=== PATIENT | female | born 1935 | race Caucasian/White ===

== ENCOUNTER → 2016-06-13 | Outpatient (CLI) | payer BC ==
[~2016-06-13] MED LIST: ASPI81TA28 PO; ATOR-54 PO; CHOL100010 PO; CHOL100027 PO; ESCI10TA17 PO; ESCI1TAB9 PO; MOME50SP5; NITR1CAP16 PO; OMEP20CA9 PO; POLYSOL OPB; TELM40TA11 PO
--- NOTE | 2016-06-13 13:47 | MAMMOGRAPHY REPORT ---
BILATERAL DIGITAL SCREENING MAMMOGRAM WITH CAD: 06/13/2016 CLINICAL HISTORY: Asymptomatic. Personal history of breast cancer. TECHNIQUE: Current study was also evaluated with a Computer Aided Detection (CAD) system. Bilatera l CC and MLO views were obtained. COMPARISON: Comparison is made to exams dated: 05/26/2015 mammogram, 10/29/2012 mammogram, 4 mammogram, 11/10/2012 mammogram, 10/25/2010 mammogram, and 10/24/2009 mammogram - [facility]. BREAST COMPOSITION: There are scattered areas of fibroglandular density in both breasts. FINDINGS: No suspicious masses, calcifications, or areas of architectural distortion are noted in e ither breast. There has been no significant interval change compared to prior exams. There are stab le post surgical changes in the right breast. Scattered bilateral benign-appearing calcifications a re not significantly changed. A biopsy marker clip is again noted in the left upper inner quadrant. IMPRESSION: ACR BI-RADS CATEGORY 2: BENIGN There is no mammographic evidence of malignancy. A 1 year screening mammogram is recommended. The p atient will receive written notification of the results. Approximately 10% of breast cancers are not detected with mammography. A negative mammographic repor t should not delay biopsy if a clinically suggestive mass is present. Krupa Begum M.D. ah/:06/13/2016 12:01:51 [employer] Estate List[employer] Consultant: Shruti MOORE)(M), [facility] letter sent: Normal 1/2 BI-RADS Code: ACR BI-RADS Category 2: Benign
== END | disposition home or self-care (01) ==
LOC: C.MAMM 10:21
PROVIDERS: ATTEND Internal Medicine Geriatric Medicine
DX: Z12.31 Encounter for screening mammogram for malignant neoplasm of breast (principal); Z85.3 Personal history of malignant neoplasm of breast; Z08 Encounter for follow-up examination after completed treatment for malignant neoplasm

== ENCOUNTER → 2016-08-06 | Outpatient (CLI) | payer BC ==
[2016-08-06 10:20] LABS: BASO % 0.2 %; BASO ABS # 0.01 K/uL (0-0.2); COMPLETE YES; EOS % 4.5 %; LYMPH % 28.3 %; MEAN CELL VOLUME 92.3 fL (80-100); MEAN CORPUSCULAR HEMOGLOBIN 30.8 pg (25-34); MEAN CORPUSCULAR HGB CONC 33.3 g/dl (32-36); MEAN PLATELET VOLUME 9.3 fL (7.4-10.4); MONO % 5.8 %; NEUT % 61.2 %; PLATELET COUNT 200 K/uL (130-400)
[2016-08-06 10:33] LABS: ALT/SGPT 24 U/L (12-78); AST/SGOT 21 U/L (15-37); BLOOD UREA NITROGEN 24 mg/dl (7-18); BUN/CREATININE RATIO 28.9 (10-20); CALCIUM 8.9 mg/dl (8.5-10.1); CARBON DIOXIDE 27 mmol/L (21-32); CHLORIDE 104 mmol/L (98-107); CREATININE 0.82 mg/dl (0.60-1.20); GLUCOSE 88 mg/dl (70-99); POTASSIUM 4.2 mmol/L (3.5-5.1); SODIUM 139 mmol/L (136-145)
[2016-08-06 10:35] LABS: ALB/GLOB RATIO 0.9 (0.9-2); ALKALINE PHOSPHATASE 80 U/L (45-117)
[2016-08-06 10:36] LABS: URINE APPEARANCE CLOUDY (CLEAR); URINE BILIRUBIN NEG (NEG); URINE COLOR YELLOW; URINE NITRITE NEG (NEG); URINE SPECIFIC GRAVITY 1.011 (1.000-1.030); UROBILINOGEN NEG (NEG); ZZUR CULT IF INDIC CLEAN CATCH YES
[2016-08-06 10:39] LABS: ESTIMATED AVERAGE GLUCOSE 120 mg/dl; HA1C FLAG Normal (Normal); MANUAL MICROSCOPIC REQUIRED? NO; REVIEW REQ? NO
--- NOTE | 2016-08-14 07:43 | CODING QUERY MEDICAL NECESSITY ---
SUPPORTING DIAGNOSIS NEEDED A supporting diagnosis is required for the test/procedure performed on this patient in order for us to be reimbursed by the patient's insurance. Please provide a supporting diagnosis for the following test/procedure listed below next to the test name along with your signature. *If there is no additional diagnosis for this patient that would support the following test/procedure please document that below next to the test/procedure. Test(s)/Procedure(s) that require a supporting diagnosis: * VITAMIN D 25-HYDROXY DIAGNOSIS: * DOS: 08/06/16 Provider Signature: Date: Thank you Elena Caldera Health Information Management Once completed, please kindly fax back to [phone] For questions please call [phone]
== END | disposition home or self-care (01) ==
LOC: C.LAB 09:23
PROVIDERS: ATTEND Internal Medicine Geriatric Medicine
DX: E78.5 Hyperlipidemia, unspecified (principal); F32.9 Major depressive disorder, single episode, unspecified; I10 Essential (primary) hypertension; M19.90 Unspecified osteoarthritis, unspecified site; R53.1 Weakness; R73.9 Hyperglycemia, unspecified; N81.4 Uterovaginal prolapse, unspecified

== ENCOUNTER 2016-08-08 11:22 | Emergency (ER) | payer BC ==
[~2016-08-08] VITALS: Ht 149.9 cm; Wt 58.0 kg
[~2016-08-08 11:22] MED LIST changes: -CHOL100027 PO; -ESCI1TAB9 PO; -NITR1CAP16 PO
[2016-08-08 11:26] VITALS: TEMP 36.6; Ht 149.9 cm; Wt 58.0 kg
--- NOTE | 2016-08-08 12:18 | EMERGENCY ROOM VISIT NOTE ---
History Report prepared by Micheal: Lakeshia Ram Under the Supervision of: Dr. Ashley Callahan M.D. First contact with patient: 11:44 Chief Complaint: FALL Stated Complaint: FALL/CONTUSION History of Present Illness The patient is a 80 year old female who presents to the Emergency Room with a facial injury after falling [employer]. She was walking with her when she tripped on her 's shoe and fell onto her left side and face onto concrete. She was visiting the doctor for a bladder infection when she fell. She is also experiencing pain in her left rib area. She denies any syncope. She says her wrist might be in pain, but mentions that her wrist is usually in pain due to her arthritis. She does not have osteoporosis. She takes an aspirin everyday, but reports that she has not taken her aspirin or her hypertension medication today. Source of History: patient Onset: [employer] Position: other (global) Timing: other (episode) Note: Pt has pain in the left rib area. Pt denies syncope. Review of Systems See HPI for pertinent positives & negatives. A total of 10 systems reviewed and were otherwise negative. 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 Social History Smoking Status: Never Smoker Drug Use: none Marital Status: Housing Status: lives with significant other Current/Historical Medications Scheduled Aspirin (Aspirin Ec), 81 MG PO QAM Atorvastatin (Lipitor), 20 MG PO HS Cholecalciferol (Vitamin D 1000 Unit), 1,000 INTER.UNIT PO DAILY Escitalopram (Lexapro), 5 MG PO Q2D Escitalopram Oxalate (Lexapro), 10 MG PO Q2D Nitrofurantoin Monohyd Macro (Macrobid), 100 MG PO BID Omeprazole (Prilosec), 20 MG PO DAILY Polyvinyl Alcohol-Povidone (Op (Refresh), 1 DROP OPB BID Telmisartan (Micardis), 40 MG PO DAILY Allergies Coded Allergies: Sulfa Drugs (Verified Allergy, Intermediate, RASH, 08/08/16) Ciprofloxacin (Verified Allergy, Unknown, UNKNOWN, 08/08/16) Iodine (Verified Allergy, Unknown, IV AND TOPICAL IODINE, 08/08/16) Levofloxacin (Verified Allergy, Unknown, UNKNOWN, 08/08/16) Sertraline (Verified Allergy, Unknown, ZOLOFT, 08/08/16) ALLSCRIPTS Codeine (Verified Adverse Reaction, Intermediate, VERY ILL & DIZZY, 08/08/16 ) Physical Exam Vital Signs Date Time Temp Pulse Resp B/P Pulse Ox O2 Delivery O2 Flow Rate FiO2 08/08/16 16:09 74 16 139/79 99 Room Air 08/08/16 15:02 72 16 157/76 98 Room Air 08/08/16 14:00 73 16 160/88 98 Room Air 08/08/16 13:02 72 16 158/84 100 Room Air 08/08/16 11:26 36.6 74 16 166/72 98 Room Air Physical Exam Vital signs reviewed. General: Elderly, generally well-appearing , in no significant distress. Collared. HEENT: No scleral icterus, PERRLA, neck supple. Large left forehead hematoma. Cardiovascular: Regular rate and rhythm, no extra sounds. Pulmonary: Clear to auscultation bilaterally, normal work of breathing. Abdomen: Soft, nontender, nondistended, positive bowel sounds. Musculoskeletal: Atraumatic, no significant deformity. Nontender to palpation over cervical spine. Neurologic: Patient awake alert and oriented x 3, full strength in all 4 extremities. Skin: Warm, dry, no rash. No significant abrasions/laceration. Medical Decision & Procedures ER Provider Diagnostic Interpretation: X-ray results as stated below per my interpretation and radiologist interpretation. Other radiology results as stated below per my review and radiologist interpretation: LEFT RIBS UNILATERAL WITH PA CHEST CLINICAL HISTORY: Left rib pain status post trauma COMPARISON STUDY: Chest x-ray performed December 2009 FINDINGS: The erect chest reveals no pneumothorax. There are postsurgical changes of a right humeral arthroplasty. Degenerative changes are present within the left shoulder. There are increased markings at both lung bases. This could be atelectatic, inflammatory, or related to mild pulmonary vascular congestion. No left-sided rib fractures are visualized. IMPRESSION: No evidence of pneumothorax. No left-sided rib fractures are visualized. Electronically signed by: Eagle Billingsley M.D. 08/08/2016 2:[address]AST CT DOSE: HISTORY: Trauma mental status change TECHNIQUE: Multiaxial CT images of the head were performed without the use of intravenous contrast. Comparison: 01/17/2016 Findings: The paranasal sinuses and mastoid air cells are clear. Left extracranial prefrontal soft tissue hematoma. No acute bony abnormality. Density characteristics of the cerebellar as well as cerebral hemispheres are within normal limits. There is no deviation of midline structures. Impression: 1. No acute intracranial abnormality. 2. Left prefrontal extracranial soft tissue hematoma Electronically signed by: Sonu Cannon M.D. 08/08/2016 1:[address] OF THE CERVICAL SPINE WITHOUT CONTRAST CLINICAL HISTORY: Fall. COMPARISON STUDY: Cervical spine CT January 17, 2016. TECHNIQUE: Helical axial images of the cervical spine were obtained without IV contrast. Sagittal and coronal reconstructions were viewed. FINDINGS: No acute fracture is identified within the cervical spine. The craniocervical junction is intact. Severe arthrosis is noted at the C1-C2 articulation. Slight anterolisthesis of C3 on C4, C4 on C5 and C7 on T1 is unchanged. There is no prevertebral edema. No pneumothorax is shown within visualized portions of the lung apices. A 2 cm right lobe thyroid nodule is unchanged. Biapical opacities suggest scarring. There may be mild interlobular septal thickening. IMPRESSION: No acute cervical spine fracture or subluxation. Electronically signed by: Travis Salgado M.D. 08/08/2016 1:45 PM LEFT KNEE 1 OR 2 VIEWS ROUTINE CLINICAL HISTORY: Left knee pain status post trauma COMPARISON: None. DISCUSSION: The bones are osteopenic. No acute fractures are visualized. There is mild anterior soft tissue swelling. IMPRESSION: Mild soft tissue swelling. No acute fractures. Osteopenia. Electronically signed by: Eagle Billingsley M.D. 08/08/2016 2:34 PM Laboratory Results 08/08/16 12:30 Red Blood Count 4.21, Mean Corpuscular Volume 92.2, Mean Corpuscular Hemoglobin 31.8, Mean Corpuscular Hemoglobin Concent 34.5, Mean Platelet Volume 9.2, Neutrophils (%) (Auto) 72.6, Lymphocytes (%) (Auto) 18.9, Monocytes (%) (Auto) 6.0, Eosinophils (%) (Auto) 2.2, Basophils (%) (Auto) 0.1, Neutrophils # (Auto) 5.82, Lymphocytes # (Auto) 1.52, Monocytes # (Auto) 0.48, Eosinophils # (Auto) 0.18, Basophils # (Auto) 0.01 08/08/16 12:30 Test 08/08/16 12:30 08/08/16 12:50 White Blood Count 8.03 K/uL (4.8-10.8) Red Blood Count 4.21 M/uL (4.2-5.4) Hemoglobin 13.4 g/dL (12.0-16.0) Hematocrit 38.8 % (37-47) Mean Corpuscular Volume 92.2 fL (80-100) Mean Corpuscular Hemoglobin 31.8 pg (25-34) Mean Corpuscular Hemoglobin Concent 34.5 g/dl (32-36) Platelet Count 213 K/uL (130-400) Mean Platelet Volume 9.2 fL (7.4-10.4) Neutrophils (%) (Auto) 72.6 % Lymphocytes (%) (Auto) 18.9 % Monocytes (%) (Auto) 6.0 % Eosinophils (%) (Auto) 2.2 % Basophils (%) (Auto) 0.1 % Neutrophils # (Auto) 5.82 K/uL (1.4-6.5) Lymphocytes # (Auto) 1.52 K/uL (1.2-3.4) Monocytes # (Auto) 0.48 K/uL (0.11-0.59) Eosinophils # (Auto) 0.18 K/uL (0-0.5) Basophils # (Auto) 0.01 K/uL (0-0.2) RDW Standard Deviation 48.5 fL (36.4-46.3) RDW Coefficient of Variation 14.3 % (11.5-14.5) Immature Granulocyte % (Auto) 0.2 % Immature Granulocyte # (Auto) 0.02 K/uL (0.00-0.02) Anion Gap 10.0 mmol/L (3-11) Est Creatinine Clear Calc Drug Dose 34.9 ml/min Estimated GFR () 62.7 Estimated GFR (Non- 54.1 BUN/Creatinine Ratio 27.3 (10-20) Calcium Level 9.6 mg/dl (8.5-10.1) Total Bilirubin 0.5 mg/dl (0.2-1) Direct Bilirubin 0.1 mg/dl (0-0.2) Aspartate Amino Transf (AST/SGOT) 24 U/L (15-37) Alanine Aminotransferase (ALT/SGPT) 27 U/L (12-78) Alkaline Phosphatase 100 U/L (45-117) Total Protein 8.1 gm/dl (6.4-8.2) Albumin 3.9 gm/dl (3.4-5.0) Urine Color YELLOW Urine Appearance CLEAR (CLEAR) Urine pH 8.5 (4.5-7.5) Urine Specific [place] 1.004 (1.000-1.030) Urine Protein NEG (NEG) Urine Glucose (UA) NEG (NEG) Urine Ketones NEG (NEG) Urine Occult Blood 1+ (NEG) Urine Nitrite NEG (NEG) Urine Bilirubin NEG (NEG) Urine Urobilinogen NEG (NEG) Urine Leukocyte Esterase MODERATE (NEG) Urine WBC (Auto) 10-30 /hpf (0-5) Urine RBC (Auto) 5-10 /hpf (0-4) Urine Hyaline Casts (Auto) 1-5 /lpf (0-5) Urine Epithelial Cells (Auto) 5-10 /lpf (0-5) Urine Bacteria (Auto) NEG (NEG) Date/Time Source Procedure Growth Status 08/08/16 12:50 Urine , Clean Catch Urine Culture - Final Enterococcus Faecalis Complete Laboratory results per my review. Medications Administered Medications (Trade) Dose Ordered Sig/Raffaele Route Start Time Stop Time Status Last Admin Dose Admin Sodium Chloride 250 ml @ 999 mls/hr Q16M STAT IV 08/08/16 12:42 08/08/16 12:57 DC 08/08/16 13:50 999 MLS/HR Sodium Chloride (Nss 1000ml) 1,000 ml @ 125 mls/hr Q8H STAT IV 08/08/16 12:42 08/08/16 16:40 DC 08/08/16 13:50 125 MLS/HR Fentanyl Citrate (Fentanyl Inj) 25 mcg NOW STAT IV 08/08/16 14:35 08/08/16 14:36 DC 08/08/16 14:44 25 MCG Acetaminophen (Tylenol Tab) 650 mg NOW STAT PO 08/08/16 15:16 08/08/16 15:17 DC 08/08/16 16:08 650 MG ECG Indication: other (fall) Rate (beats per minute): 72 Rhythm: normal sinus Findings: nonspecific-ST abn (Lateral), no ectopy, other (left atrial enlargement) ED Course 1156: Past medical records reviewed. The patient was evaluated in room C10. A complete history and physical examination was performed. 1242: NSS 250 ml @ 999 mls/hr IV, NSS 1000 ml @ 125 mls/hr IV. 1435: Fentanyl Citrate 25 mcg IV. 1511: I reassessed the patient at this time. She is feeling better and resting comfortably. I discussed the results and treatment plan with the patient. I answered all pertaining questions that she had. She expressed understanding and verbalized agreement. The patient will be discharged home. Medical Decision DDx: Intracranial injury, cervical spine injury, intrathoracic injury, intra- abdominal injury, musculoskeletal injury. This pt was evaluated and appeared to be in no distress. IV access was obtained and lab work was drawn. Pt was placed on the radiation monitor. CT head and neck were performed. Pt has a significant hematoma to the left forehead. There is no acute IC hemorrhage. No fx seen. Pt is on ASA likely contributing to the hematoma on forehead. EKG reveals a NSR with nonspecific ST changes. Lab work is unrevealing. UA is + for UTI, however she fell on her way out of PCP office to get Rx for UTI. This is at her pharmacy. Pt will f/ u with PCP for reevaluation in 2-3 days. Family resides with her and were given head injury instructions. She will return to the ED for worsening of symptoms or any medical concerns. Impression Primary Impression: Facial contusion Additional Impressions: Knee contusion UTI (urinary tract infection) Scribe Attestation The scribe's documentation has been prepared under my direction and personally reviewed by me in its entirety. I confirm that the note above accurately reflects all work, treatment, procedures, and medical decision making performed by me. Departure Information Dispostion Home / Self-Care Referrals Yobani Roach M.D. (PCP) Forms HOME CARE DOCUMENTATION FORM, IMPORTANT VISIT INFORMATION Patient Instructions My [facility] Additional Instructions Diagnosis: Head contusion, knee contusion Tylenol 650 mg every 6 hours as needed for pain. Ice the swollen and bruised areas intermittently for the next 24 hours. Follow-up with your physician next week for reevaluation. Watch for signs of head injury such as confusion, vomiting, increased pain. Return to the ER for any medical concerns. Problem Qualifiers Primary Impression: Facial contusion Encounter type: initial encounter Qualified Codes: S00.83XA - Contusion of other part of head, initial encounter Additional Impressions: Knee contusion Encounter type: initial encounter Laterality: left Qualified Codes: S80.02XA - Contusion of left knee, initial encounter
[2016-08-08] MEDS ORDERED: ESCI1TAB9 PO (12:41)
[2016-08-08] MEDS ORDERED: CHOL100027 PO (12:41)
[2016-08-08] MEDS ORDERED: SODIUM CHLORIDE 0.9% 1000ML 1,000 ML IV STA (12:42)
[2016-08-08] MEDS ORDERED: SODIUM CHLORIDE 0.9% 250ML 250 ML IV STA (12:42)
[2016-08-08] MEDS ORDERED: NITR1CAP16 PO (12:43)
[2016-08-08 12:51] LABS: BASO % 0.1 %; BASO ABS # 0.01 K/uL (0-0.2); COMPLETE YES; EOS % 2.2 %; HEMATOCRIT 38.8 % (37-47); IG% 0.2 %; LYMPH % 18.9 %; LYMPH ABS # 1.52 K/uL (1.2-3.4); MEAN CELL VOLUME 92.2 fL (80-100); MEAN CORPUSCULAR HEMOGLOBIN 31.8 pg (25-34); MEAN CORPUSCULAR HGB CONC 34.5 g/dl (32-36); MEAN PLATELET VOLUME 9.2 fL (7.4-10.4); NEUT % 72.6 %; PLATELET COUNT 213 K/uL (130-400); RED BLOOD COUNT 4.21 M/uL (4.2-5.4); WHITE BLOOD COUNT 8.03 K/uL (4.8-10.8)
[2016-08-08 12:58] LABS: BUN/CREATININE RATIO 27.3 (10-20); CALCIUM 9.6 mg/dl (8.5-10.1); CREATININE 0.98 mg/dl (0.60-1.20); POTASSIUM 4.1 mmol/L (3.5-5.1)
--- NOTE | 2016-08-08 13:30 | DIAGNOSTIC IMAGING REPORT ---
HEAD CT NONCONTRAST CT DOSE: HISTORY: Trauma mental status change TECHNIQUE: Multiaxial CT images of the head were performed without the use of intravenous contrast. Comparison: 01/17/2016 Findings: The paranasal sinuses and mastoid air cells are clear. Left extracranial prefrontal soft tissue hematoma. No acute bony abnormality. Density characteristics of the cerebellar as well as cerebral hemispheres are within normal limits. There is no deviation of midline structures. Impression: 1. No acute intracranial abnormality. 2. Left prefrontal extracranial soft tissue hematoma Electronically signed by: Sonu Cnanon M.D. 08/08/2016 1:29 PM Dictated Date/Time: 08/08/2016 1:28 PM
[2016-08-08 13:33] LABS: URINE APPEARANCE CLEAR (CLEAR); URINE BILIRUBIN NEG (NEG); URINE COLOR YELLOW; URINE NITRITE NEG (NEG); URINE PH 8.5 (4.5-7.5); URINE SPECIFIC GRAVITY 1.004 (1.000-1.030); UROBILINOGEN NEG (NEG); ZZUR CULT IF INDIC CLEAN CATCH YES
[2016-08-08 13:36] LABS: MANUAL MICROSCOPIC REQUIRED? NO; REVIEW REQ? NO
--- NOTE | 2016-08-08 13:47 | DIAGNOSTIC IMAGING REPORT ---
CT OF THE CERVICAL SPINE WITHOUT CONTRAST CLINICAL HISTORY: Fall. COMPARISON STUDY: Cervical spine CT January 17, 2016. TECHNIQUE: Helical axial images of the cervical spine were obtained without IV contrast. Sagittal and coronal reconstructions were viewed. FINDINGS: No acute fracture is identified within the cervical spine. The craniocervical junction is intact. Severe arthrosis is noted at the C1-C2 articulation. Slight anterolisthesis of C3 on C4, C4 on C5 and C7 on T1 is unchanged. There is no prevertebral edema. No pneumothorax is shown within visualized portions of the lung apices. A 2 cm right lobe thyroid nodule is unchanged. Biapical opacities suggest scarring. There may be mild interlobular septal thickening. IMPRESSION: No acute cervical spine fracture or subluxation. Electronically signed by: Travis Salgado M.D. 08/08/2016 1:45 PM Dictated Date/Time: 08/08/2016 1:41 PM
[2016-08-08] MEDS ORDERED: FENTANYL CITRATE INJ 50 MCG/1 ML 2 ML VIAL IV STA (14:35)
--- NOTE | 2016-08-08 14:35 | DIAGNOSTIC IMAGING REPORT ---
LEFT KNEE 1 OR 2 VIEWS ROUTINE CLINICAL HISTORY: Left knee pain status post trauma COMPARISON: None. DISCUSSION: The bones are osteopenic. No acute fractures are visualized. There is mild anterior soft tissue swelling. IMPRESSION: Mild soft tissue swelling. No acute fractures. Osteopenia. Electronically signed by: Eagle Billingsley M.D. 08/08/2016 2:34 PM Dictated Date/Time: 08/08/2016 2:33 PM
--- NOTE | 2016-08-08 14:37 | DIAGNOSTIC IMAGING REPORT ---
LEFT RIBS UNILATERAL WITH PA CHEST CLINICAL HISTORY: Left rib pain status post trauma COMPARISON STUDY: Chest x-ray performed December 2009 FINDINGS: The erect chest reveals no pneumothorax. There are postsurgical changes of a right humeral arthroplasty. Degenerative changes are present within the left shoulder. There are increased markings at both lung bases. This could be atelectatic, inflammatory, or related to mild pulmonary vascular congestion. No left-sided rib fractures are visualized. IMPRESSION: No evidence of pneumothorax. No left-sided rib fractures are visualized. Electronically signed by: Eagle Billingsley M.D. 08/08/2016 2:36 PM Dictated Date/Time: 08/08/2016 2:34 PM
[2016-08-08] MEDS ORDERED: ACETAMINOPHEN 325 MG TAB PO STA (15:16)
[2016-08-08 16:09] VITALS: BP 139/79; PULSE 74; O2SAT 99
== END 2016-08-08 16:18 | disposition home or self-care (01) ==
LOC: EDBD 11:22 → C.EDC 11:22
DX: S00.83XA Contusion of other part of head, initial encounter (principal); S80.02XA Contusion of left knee, initial encounter; W01.0XXA Fall on same level from slipping, tripping and stumbling without subsequent striking against object, initial encounter; Y92.89 Other specified places as the place of occurrence of the external cause; N39.0 Urinary tract infection, site not specified; I25.10 Atherosclerotic heart disease of native coronary artery without angina pectoris; F32.9 Major depressive disorder, single episode, unspecified; K21.9 Gastro-esophageal reflux disease without esophagitis; K58.9 Irritable bowel syndrome, unspecified; Z85.3 Personal history of malignant neoplasm of breast; I10 Essential (primary) hypertension; Z79.82 Long term (current) use of aspirin; Z79.899 Other long term (current) drug therapy

== ENCOUNTER → 2016-08-23 | Outpatient (CLI) | payer BC ==
[~2016-08-23] MED LIST changes: -CHOL100010 PO; +CHOL100027 PO; +ESCI1TAB9 PO; -MOME50SP5; +NITR1CAP16 PO
--- NOTE | 2016-08-23 12:03 | DIAGNOSTIC IMAGING REPORT ---
ULTRASOUND OF THE CAROTID ARTERIES CLINICAL HISTORY: Carotid artery stenosis.. COMPARISON STUDY: Carotid artery ultrasound dated 02/08/2016. TECHNIQUE: Real-time, grayscale, and color Doppler sonography of the carotid arteries is performed. Images are reviewed in the transverse and longitudinal planes. FINDINGS: Blood pressures were not assessed. The carotid arteries are patent bilaterally and demonstrate antegrade flow. There is moderate to advanced echogenic shadowing atherosclerotic plaque seen bilaterally. Normal doppler arterial waveforms are seen throughout. Velocity measurements are listed below. Common carotid peak systolic velocity (cm/sec): RIGHT: 78 LEFT: 97 ICA proximal peak systolic velocity (cm/sec): RIGHT: 183 LEFT: 175 ICA mid peak systolic velocity (cm/sec): RIGHT: 126 LEFT: 123 ICA distal peak systolic velocity (cm/sec): RIGHT: 135 LEFT: 117 ICA/CC peak systolic ratio: RIGHT: 2.3 LEFT: 1.8 Antegrade flow was shown in the vertebral arteries. The external carotid arteries are patent. Elevated velocities within the right an left external carotid arteries suggests some degree of stenosis. IMPRESSION: 1. Atherosclerotic plaque with evidence of 50-69% stenosis within the proximal right and left internal carotid arteries. 2. Antegrade flow is shown in the vertebral arteries. Electronically signed by: Michael Barr M.D. 08/23/2016 12:02 PM Dictated Date/Time: 08/23/2016 12:00 PM
== END | disposition home or self-care (01) ==
LOC: C.ULTRBC 10:44
PROVIDERS: ATTEND Internal Medicine Geriatric Medicine
DX: I65.23 Occlusion and stenosis of bilateral carotid arteries (principal)

== ENCOUNTER → 2016-10-24 | Outpatient (CLI) | payer BC ==
[2016-10-24 14:04] LABS: URINE APPEARANCE CLEAR (CLEAR); URINE BILIRUBIN NEG (NEG); URINE COLOR YELLOW; URINE EPITHELIAL CELL AUTO 20-30 /lpf (0-5); URINE NITRITE NEG (NEG); URINE SPECIFIC GRAVITY 1.014 (1.000-1.030); UROBILINOGEN NEG (NEG)
[2016-10-24 14:09] LABS: MANUAL MICROSCOPIC REQUIRED? NO; REVIEW REQ? NO
== END | disposition home or self-care (01) ==
LOC: C.LABBC 11:17
PROVIDERS: ATTEND Physician Assistant Medical
DX: Z87.440 Personal history of urinary (tract) infections (principal); N81.4 Uterovaginal prolapse, unspecified; R39.9 Unspecified symptoms and signs involving the genitourinary system

== ENCOUNTER → 2017-02-20 | Outpatient (CLI) | payer BC ==
[2017-02-20 13:16] LABS: BASO % 0.3 %; BASO ABS # 0.02 K/uL (0-0.2); COMPLETE YES; EOS % 4.3 %; HEMATOCRIT 37.6 % (37-47); IG% 0.2 %; LYMPH % 28.2 %; LYMPH ABS # 1.63 K/uL (1.2-3.4); MEAN CELL VOLUME 95.9 fL (80-100); MEAN CORPUSCULAR HEMOGLOBIN 29.6 pg (25-34); MEAN CORPUSCULAR HGB CONC 30.9 g/dl (32-36); MEAN PLATELET VOLUME 9.2 fL (7.4-10.4); PLATELET COUNT 205 K/uL (130-400); RED BLOOD COUNT 3.92 M/uL (4.2-5.4); WHITE BLOOD COUNT 5.79 K/uL (4.8-10.8)
[2017-02-20 15:13] LABS: ALT/SGPT 25 U/L (12-78); AST/SGOT 21 U/L (15-37); BLOOD UREA NITROGEN 27 mg/dl (7-18); BUN/CREATININE RATIO 27.1 (10-20); CALCIUM 8.8 mg/dl (8.5-10.1); CARBON DIOXIDE 30 mmol/L (21-32); CHLORIDE 108 mmol/L (98-107); CREATININE 0.98 mg/dl (0.60-1.20); GLUCOSE 74 mg/dl (70-99); POTASSIUM 4.3 mmol/L (3.5-5.1); SODIUM 142 mmol/L (136-145)
[2017-02-20 15:24] LABS: ALB/GLOB RATIO 0.9 (0.9-2); ALKALINE PHOSPHATASE 79 U/L (45-117); CHOLESTEROL 120 mg/dl (0-200); CHOLESTEROL/HDL RATIO 2.6; HDL CHOLESTEROL 46 mg/dl; LDL CHOLESTEROL CALCULATED 55 mg/dl; TRIGLYCERIDES 96 mg/dl (0-150); VERY LOW DENSITY LIPOPROT CALC 19 mg/dl
== END | disposition home or self-care (01) ==
LOC: C.LAB 12:34
PROVIDERS: ATTEND Internal Medicine Geriatric Medicine
DX: I10 Essential (primary) hypertension (principal); I65.29 Occlusion and stenosis of unspecified carotid artery; E78.5 Hyperlipidemia, unspecified; E73.9 Lactose intolerance, unspecified; M54.16 Radiculopathy, lumbar region; G47.30 Sleep apnea, unspecified

== ENCOUNTER → 2017-03-10 | Outpatient (CLI) | payer BC ==
--- NOTE | 2017-03-10 10:14 | DIAGNOSTIC IMAGING REPORT ---
CAROTID DOPPLER NECK ART CLINICAL HISTORY: 81 years-old Female presenting with I65.29 Carotid stenosis. TECHNIQUE: Real-time grayscale and color and spectral Doppler ultrasound imaging of the bilateral carotid arteries was performed. NASCET criteria was used in evaluating this study. COMPARISON: 08/23/2016. FINDINGS: Right: Common carotid: Atherosclerosis. Peak systolic velocity 85 cm/s. Internal carotid artery: Atherosclerosis along the proximal ICA. Peak systolic velocity 142 cm/s. External carotid artery: Atherosclerosis. Peak systolic velocity 191 cm/s. Systolic ratio: 1.7. Left: Common carotid: Atherosclerosis. Peak systolic velocity 85 cm/s. Internal carotid artery: Atherosclerosis along the proximal ICA. Peak systolic velocity 151 cm/s. External carotid artery: Atherosclerosis. Peak systolic velocity 160 cm/s. Systolic ratio: 1.8. Bilateral antegrade flow within the vertebral arteries. Reference ranges: Stenosis measurements are compared to reference velocity parameters. Normal ICA peak systolic velocity less than 125 cm/s. Normal ICA peak systolic velocity to common carotid artery velocity ratio is less than 2: less than 2 equates to less than 50% stenosis, 2-4 equates to 50-69% stenosis, greater than 4 equates to greater than or equal to 70% stenosis. Normal ICA end-diastolic velocity less than 40. Blood pressure Deferred. Other: 2.5 cm heterogeneously isoechoic nodule in the right thyroid lobe noted (low suspicion pattern). IMPRESSION: 1. Apparent elevated velocities in the internal carotid arteries, however, no significant elevated ICA/CCA PSV ratio elevation. This is somewhat equivocal but suggestive of hemodynamically significant stenosis seen within the bilateral carotid arteries. 2. Due to size, fine-needle aspiration of the incidentally noted 2.5 cm nodule in the right thyroid lobe is recommended per the [place] thyroid Association criteria. Electronically signed by: Venancio Wagner M.D. 03/10/2017 10:13 AM Dictated Date/Time: 03/10/2017 10:05 AM
--- NOTE | 2017-03-17 12:06 | CODING QUERY MEDICAL NECESSITY ---
SUPPORTING DIAGNOSIS NEEDED Dr. Erickson, A supporting diagnosis is required for the test/procedure performed on this patient in order for us to be reimbursed by the patient's insurance. Please provide a supporting diagnosis for the following test/procedure listed below next to the test name along with your signature. *If there is no additional diagnosis for this patient that would support the following test/procedure please document that below next to the test/procedure. Test(s)/Procedure(s) that require a supporting diagnosis: * ([id number]) (CAROTID DOP) DUPLEX NECK ARTER DIAGNOSIS: DATE OF SERVICE: 03/10/17 Provider Signature: Date: Thank you Niraj Rodriguez Health Information Management Once completed, please kindly fax back to [phone] For questions please call [phone]
== END | disposition home or self-care (01) ==
LOC: C.ULTRBC 09:25
PROVIDERS: ATTEND Surgery
DX: I65.29 Occlusion and stenosis of unspecified carotid artery (principal); E04.1 Nontoxic single thyroid nodule

== ENCOUNTER → 2017-04-04 | Outpatient (CLI) | payer BC ==
--- NOTE | 2017-04-04 15:42 | DIAGNOSTIC IMAGING REPORT ---
ULTRASOUND R VENOUS DOPP LOWER EXT UNILAT CLINICAL HISTORY: Right leg swelling COMPARISON STUDY: No previous studies for comparison. FINDINGS: Real-time and color flow Doppler imaging were performed. Flow was seen within the femoral, popliteal and calf veins with no intraluminal thrombus demonstrated. The saphenous vein is patent. IMPRESSION: No evidence of right lower extremity DVT. Electronically signed by: Eagle Billingsley M.D. 04/04/2017 3:40 PM Dictated Date/Time: 04/04/2017 3:40 PM
--- NOTE | 2017-04-14 12:37 | CODING QUERY MEDICAL NECESSITY ---
SUPPORTING DIAGNOSIS NEEDED A supporting diagnosis is required for the test/procedure performed on this patient in order for us to be reimbursed by the patient's insurance. Please provide a supporting diagnosis for the following test/procedure listed below next to the test name along with your signature. *If there is no additional diagnosis for this patient that would support the following test/procedure please document that below next to the test/procedure. Test(s)/Procedure(s) that require a supporting diagnosis: * US VENOUS UNIL LWR EXT DOPPLER DIAGNOSIS: Provider Signature: Date: Thank you Arely Estrada [employer] Information Management Once completed, please kindly fax back to [phone] For questions please call [phone]
== END | disposition home or self-care (01) ==
LOC: C.ULTR 15:12
PROVIDERS: ATTEND Family Medicine
DX: M79.89 Other specified soft tissue disorders (principal)

== ENCOUNTER → 2017-05-27 | Outpatient (CLI) | payer BC | END | disposition home or self-care (01) | LOC: C.PATHSPEC 17:10 | PROVIDERS: ATTEND Dermatology | DX: L98.9 Disorder of the skin and subcutaneous tissue, unspecified (principal) ==

== ENCOUNTER → 2017-06-17 | Outpatient (CLI) | payer BC ==
--- NOTE | 2017-06-18 15:29 | MAMMOGRAPHY REPORT ---
BILATERAL DIGITAL SCREENING MAMMOGRAM TOMOSYNTHESIS WITH CAD: 06/17/2017 CLINICAL HISTORY: Asymptomatic. Personal history of breast cancer. TECHNIQUE: Breast tomosynthesis in addition to standard 2D mammography was performed. Current study was also evaluated with a Computer Aided Detection (CAD) system. COMPARISON: Comparison is made to exams dated: 06/13/2016 mammogram, 05/26/2015 mammogram, 05/25/2014 mammogram, 05/24/2013 mammogram, 10/29/2012 mammogram, and 10/28/2011 mammogram - [facility]. BREAST COMPOSITION: There are scattered areas of fibroglandular density in both breasts. FINDINGS: There is an irregular and spiculated 8 mm focal asymmetry in the 12:00 middle to posterior left breast, for which additional targeted ultrasound and possible additional mammographic views are recommended. A grouping of microcalcifications in the 12:00 middle to anterior left breast warranti ng additional spot magnification views. Additional asymmetry is seen slightly lateral to the microca lcifications on the CC tomosynthesis images (slice 34), also warranting additional targeted ultrasoun d in the 1:00 axis. There are stable postsurgical changes in the right breast, with scattered benign rodlike and rim calc ifications. No other suspicious mass, architectural distortion or cluster of microcalcifications is seen bilaterally. IMPRESSION: ACR BI-RADS CATEGORY 0: INCOMPLETE EVALUATION: NEED ADDITIONAL IMAGING EVALUATION The irregular and spiculated 8 mm focal asymmetry in the 12:00 left breast, left breast grouped micro calcifications also in the 12:00 axis, and asymmetry in the approximate 1:00 left breast need additio nal imaging evaluation. The patient will be called to schedule an appointment. Approximately 10% of breast cancers are not detected with mammography. A negative mammographic report should not delay biopsy if a clinically suggestive mass is present. Janay Henriquez M.D. ay/:06/17/2017 16:29:29 Ammonium Hydroxide Operator: Rafia MOORE)(Analia), [facility] letter sent: Addl Imaging 0 BI-RADS Code: ACR BI-RADS Category 0: Incomplete Evaluation: Need Additional Imaging Evaluation
== END | disposition home or self-care (01) ==
LOC: C.MAMM 10:05
PROVIDERS: ATTEND Internal Medicine Geriatric Medicine
DX: Z12.31 Encounter for screening mammogram for malignant neoplasm of breast (principal)

== ENCOUNTER → 2017-06-25 | Outpatient (CLI) | payer BC ==
[~2017-06-25] MED LIST changes: -NITR1CAP16 PO; -POLYSOL OPB; +[UNRECOGNIZED DRUG - OTHER] OPB
--- NOTE | 2017-06-25 15:10 | MAMMOGRAPHY REPORT ---
UNILATERAL LEFT DIGITAL DIAGNOSTIC MAMMOGRAM AND TARGETED LEFT ULTRASOUND: 06/25/2017 CLINICAL HISTORY: Callback from screening mammogram for left breast asymmetries and calcifications. TECHNIQUE: Spot magnification left CC and ML views were obtained. COMPARISON: Comparison is made to exams dated: 06/17/2017 mammogram, 06/13/2016 mammogram, 05/26/2015 ma mmogram, 05/25/2014 mammogram, 05/24/2013 mammogram, and 10/29/2012 mammogram - [facility]. BREAST COMPOSITION: There are scattered areas of fibroglandular density in the left breast. FINDINGS: Spot magnification views demonstrate a persistent irregular focal asymmetry in the left sup erior breast at approximately 12:00, measuring approximately 9 mm. The other asymmetry within the le ft lateral breast on the cc view effaces to a baseline appearance on the additional views, and appear s similar to prior exams including the 2008 exam. There is a small 4 mm cluster of approximately 4 p unctate calcifications within the left upper outer quadrant. The calcifications are stable compared to multiple prior exams dating back to the 2009 and 2007 exams, and are considered benign given long- term stability. Targeted ultrasound was performed of the left 12:00 breast and left upper outer quadrant in the regio n of the mammographic asymmetries. In the left breast at 12:00, approximately 5 cm from the nipple, there is a subtle ill-defined hypoechoic irregular mass which is ill-defined and therefore difficult to measure but measures at least 3 x 5 mm. This corresponds with the irregular asymmetry seen mammog raphically and is highly suspicious for malignancy. Recommend ultrasound-guided core needle biopsy f or further evaluation. No sonographic correlate for the left lateral breast asymmetry is seen. The asymmetry is felt to represent normal fibroglandular tissue. Targeted ultrasound was also performed of the left axillary region, which shows a morphologically normal left axillary lymph nodes without e vidence of adenopathy. IMPRESSION: ACR BI-RADS CATEGORY 5: HIGHLY SUGGESTIVE OF MALIGNANCY, TARGETED ULTRASOUND ACR BI-RADS CATEGORY 5: HIGHLY SUGGESTIVE OF MALIGNANCY 1. Persistent irregular 9 mm focal asymmetry in the left 12:00 breast on the additional views. A crews btle corresponding hypoechoic mass is seen in the 12:00 breast on ultrasound. The finding is highly suspicious for malignancy and ultrasound-guided core needle biopsy is recommended for further evaluat ion. 2. The left lateral breast asymmetry effaces to a baseline appearance on the additional views, witho ut corresponding suspicious sonographic abnormality evident. The finding is benign and likely repres ents normal fibroglandular tissue. 3. Small cluster of calcifications in the left upper outer quadrant is stable dating back to 2007 an d is considered benign given long-term stability. A phone call was made to the physician's office to confirm faxed results were received. The patient has been verbally notified of the results. She tentatively scheduled the biopsy for tomorrow, 018. Approximately 10% of breast cancers are not detected with mammography. A negative mammographic report should not delay biopsy if a clinically suggestive mass is present. Krupa Begum M.D. ah/:06/25/2017 14:37:50 Data Security Analyst: Rafia FLORES(Clarita)(M), [facility] letter sent: Abnormal 4/5 BI-RADS Code: ACR BI-RADS Category 5: Highly Suggestive Of Malignancy Ultrasound BI-RADS: ACR BI-RAD S Category 5: Highly Suggestive Of Malignancy
== END | disposition home or self-care (01) ==
LOC: C.MAMM 13:19
PROVIDERS: ATTEND Internal Medicine Geriatric Medicine
DX: R92.0 Mammographic microcalcification found on diagnostic imaging of breast (principal); N64.89 Other specified disorders of breast

== ENCOUNTER → 2017-06-26 | Outpatient (CLI) | payer BC | END | disposition home or self-care (01) | LOC: C.LAB 10:00 | PROVIDERS: ATTEND Internal Medicine Geriatric Medicine | DX: R39.9 Unspecified symptoms and signs involving the genitourinary system (principal) ==

== ENCOUNTER → 2017-07-01 | Outpatient (CLI) | payer BC ==
--- NOTE | 2017-07-01 10:19 | Discharge Instructions ---
Discharge Instructions Procedure Procedure Date: Jul 01, 2017. Reason for visit: Left Mass. Discharge Discharge Date: Jul 01, 2017. Discharge Diagnosis: post left breast ultrasound guided core biopsy Medications Restart Stopped Medication(s): Resume Aspirin today Instructions Activity Recommendations: Additional Limitations (see below) Return to School/Work: no limitations Recommended Home Diet: No Limitations Provider Instructions: ACTIVITY RECOMMENDATIONS: * No lifting, pushing, pulling or exercising the affected side for three days. RETURN TO SCHOOL/WORK: * You may return to work/school after the procedure, but do not perform any strenuous activities for 24 to 48 hours. MEDICATIONS: * Tylenol (two 325 mg) every four to six hours if needed for mild pain (if not allergic to Tylenol). DIET: * Resume previous diet. SPECIAL CARE INSTRUCTIONS: * Keep biopsy site dry for 24 hours. May shower after 24 hours, but do not soak (bathe) incision. * May remove Tegaderm (plastic patch) tomorrow AFTER showering. * Leave the steri-strips on for one week. Allow the steri-strips to fall off by themselves. If not off after one week, you may remove them. You may place a Bandaid crosswise over the strips, if desired. * Apply ice 10 minutes on and 10 minutes off as needed. * Wear a bra at bedtime to sleep more comfortably for 2-3 days. * Your referring physician should have the results after approximately 5 to 7 business days. * Call for unusual bleeding, fever, drainage, etc or if you have any questions call [phone] during normal business hours or after hours call Dr Henriquez, . FOLLOW UP VISIT: Follow-up with Referring Physician as scheduled. Allergies Coded Allergies: Sulfa Drugs (Verified Allergy, Intermediate, RASH, 06/24/17) Adhesives (Verified Allergy, Unknown, SKIN IRRITATIONS, 06/24/17) Ciprofloxacin (Verified Allergy, Unknown, UNKNOWN, 06/24/17) Iodine (Verified Allergy, Unknown, IV AND TOPICAL IODINE, 06/24/17) Levofloxacin (Verified Allergy, Unknown, UNKNOWN, 06/24/17) Sertraline (Verified Allergy, Unknown, ZOLOFT, 06/24/17) ALLSCRIPTS Codeine (Verified Adverse Reaction, Intermediate, VERY ILL & DIZZY, ) Bhargavi Garcia Recommendations: Call your doctor if: * Temperature above 101 degrees * Pain not relieved by pain medicine ordered * There is increased drainage or redness from any incision * You have any unanswered questions or concerns. Your Doctors Instructions noted above were prepared by provider Janay Henriquez. Patient Signature Section: Patient Instructions Signature Page Belia Kevin Patient (or Guardian) Signature/Date: I have read and understand the instructions given to me by my caregivers. Caregiver/RN/Doctor Signature/Date: The above-named patient and/or guardian has received patient instructions on this date. + Original Patient Signature Page (only) stays with chart. Please make copy for patient.
--- NOTE | 2017-07-01 14:39 | MAMMOGRAPHY REPORT ---
ULTRASOUND GUIDED BIOPSY LEFT BREAST: 07/01/2017 CLINICAL HISTORY: 81-year-old woman presents for biopsy of a suspicious spiculated 8 mm mass in the 1 2:00 left breast identified on screening mammography, with probable sonographic correlate in the 12:0 0 axes on ultrasound. Patient has a history of remote right breast cancer status post breast conserv ation treatment. COMPARISON: Comparison is made to exams dated: 06/25/2017 ultrasound, 06/25/2017 mammogram, 06/17/2017 m ammogram, 06/13/2016 mammogram, 05/26/2015 mammogram, and 05/25/2014 mammogram - [facility]. PATIENT CONSENT: The procedure, risks and benefits were discussed with the patient and informed conse nt was obtained both verbally and in writing. Specific risks to this procedure include: bleeding, in fection, puncture of adjacent structure, nontarget biopsy, sampling error, pain, metal allergy and me dication reaction. PROCEDURE DESCRIPTION: A time out was performed and the left breast was agreed as the site of biopsy. First repeat targeted ultrasound was performed in the 12:00 axis of the left breast in the area of ill-defined hypoechoic mass identified on prior ultrasound. In the area of previously documented ill -defined hypoechoic mass in the 12:00 left breast, 5 cm from the nipple, the area of shadowing is les s conspicuous. However, a solid spiculated isoechoic mass is currently seen slightly more distal in the 12:00 axis, 7 cm from the nipple, measuring 5.5 x 3.5 x 6.7 mm. This will be the target for ultr asound-guided core biopsy. Please see below. The skin of the left breast was prepped and draped in the usual sterile fashion, utilizing ChloraPrep as the patient reported an iodine allergy. The spiculated, 6.7 mm mass in the 12:00 left breast was chosen as the target for biopsy. Subcutaneous and intraparenchymal 1% buffered lidocaine, with and wi thout epinephrine, was administered as local anesthesia. A skin incision was made. Through the incis ion, 5 samples were taken with a 14 gauge Achieve biopsy device. A wing shaped metallic marker was pl aced at the biopsy site. Hemostasis was achieved after manual compression. The patient tolerated the procedure well and there was no immediate complication. The samples were sent to the pathology depar tment in an appropriately labeled container. Postprocedure left CC and ML tomosynthesis images were obtained. A new ring-shaped biopsy marker cli p aligns with the spiculated mammographic mass in question. No significant post prepped hematoma esmer ntified. A wing shaped clip is seen in the 11:00 anterior left breast, denoting a prior benign ultra sound-guided biopsy. IMPRESSION: ULTRASOUND GUIDED BIOPSY Status post ultrasound-guided core biopsy of a suspicious spiculated 6.7 mm mass in the 12:00 left br east, with wing-shaped biopsy marker clip placed at the site. The patient will receive notification of the biopsy results from her referring physician. Janay Henriquez M.D. ay/:07/01/2017 10:56:32 Water Supervisor: Michelle Turpin, [facility]
--- NOTE | 2017-07-01 14:39 | MAMMOGRAPHY REPORT ---
UNILATERAL LEFT DIGITAL DIAGNOSTIC MAMMOGRAM TOMOSYNTHESIS: 07/01/2017 CLINICAL HISTORY: Status post ultrasound-guided core biopsy of a spiculated 6 mm mass in the 12:00 le ft breast, 5 cm from the nipple, thought to correlate with a mass with associated architectural disto rtion seen mammographically. Patient has a remote history of right breast cancer. Please refer to the report from left breast ultrasound guided core biopsy performed at the same time for full detail. IMPRESSION: POST PROCEDURE IMAGING FOR MARKER PLACEMENT Please refer to the report from left breast ultrasound guided core biopsy performed at the same time for full detail. Approximately 10% of breast cancers are not detected with mammography. A negative mammographic report should not delay biopsy if a clinically suggestive mass is present. Janay Henriquez M.D. ay/:07/01/2017 09:33:56 Attending Technologist: Rafia FLORES(Clarita)(M), [facility] Room Service Associate: Michelle Turpin, [facility] BI-RADS Code: Post Procedure Imaging For Marker Placement
== END | disposition home or self-care (01) ==
LOC: C.MAMM 08:43
PROVIDERS: ATTEND Internal Medicine Geriatric Medicine
DX: N63.20 Unspecified lump in the left breast, unspecified quadrant (principal); C50.912 Malignant neoplasm of unspecified site of left female breast

== ENCOUNTER → 2017-07-08 | Day surgery (SDC) | payer BC ==
[2017-06-24 15:16] VITALS: Ht 149.9 cm; Wt 54.5 kg
[2017-06-26 12:21] LABS: PTT PATIENT 26.8 SECONDS (21.0-31.0)
[2017-06-26 12:31] LABS: CALCIUM 9.3 mg/dl (8.5-10.1); CREATININE 0.84 mg/dl (0.60-1.20)
[2017-06-26 13:01] LABS: BASO % 0.2 %; BASO ABS # 0.01 K/uL (0-0.2); EOS % 3.5 %; EOS ABS # 0.23 K/uL (0-0.5); HEMATOCRIT 37.8 % (37-47); HEMOGLOBIN 12.2 g/dL (12.0-16.0); IG# 0.01 K/uL (0.00-0.02); LYMPH % 24.3 %; MEAN CELL VOLUME 94.3 fL (80-100); MEAN CORPUSCULAR HEMOGLOBIN 30.4 pg (25-34); MEAN CORPUSCULAR HGB CONC 32.3 g/dl (32-36); MEAN PLATELET VOLUME 9.5 fL (7.4-10.4); MONO % 6.8 %; MONO ABS # 0.45 K/uL (0.11-0.59); NEUT ABS # 4.29 K/uL (1.4-6.5); PLATELET COUNT 211 K/uL (130-400); RED CELL DISTRIBUTION WIDTH CV 14.1 % (11.5-14.5); RED CELL DISTRIBUTION WIDTH SD 48.6 fL (36.4-46.3); WHITE BLOOD COUNT 6.59 K/uL (4.8-10.8)
[~2017-07-08] VITALS: Ht 149.9 cm; Wt 54.5 kg
[~2017-07-08] MED LIST changes: +ACET-1693 PO; +ACETAMINOPHEN 325 MG TAB PO PRN; +ATROPINE SULFATE 0.1 MG/ML 5ML SYR IV PRN; +CEFAZOLIN 2000MG IV PUSH 10 ML IV SCH; +CEPH500C2 PO; +DEXAMETHASONE SOD INJ 4 MG/ML VIAL ONE; +EpHEDrine SULFATE INJ 50 MG/ML AMP IV PRN; +EpHEDrine SULFATE INJ 50 MG/ML AMP ONE; +FENTANYL CITRATE INJ 50 MCG/1 ML 2 ML VIAL IV PRN; +FENTANYL CITRATE INJ 50 MCG/1 ML 2 ML VIAL ONE; +LACTATED RINGER'S 1000ML 1,000 ML IV SCH; +LIDOCAINE HCL 2% 2 ML VIAL (20MG/ML) ONE; +LIDOCAINE/EPINEPHRINE 1% 20 ML VIAL ONE; +METOCLOPRAMIDE HCL INJ 5 MG/ML 2 ML VIAL IV PRN; +MIDAZOLAM HCL 1 MG/ML 2ML VIAL ONE; +ONDANSETRON INJ 2 MG/ML 2 ML VIAL IV PRN; +ONDANSETRON INJ 2 MG/ML 2 ML VIAL ONE; +OXYCODONE/ACETAMINOPHEN 5-325 TAB PO PRN; +PROPOFOL IV EMULSION 10 MG/ML 20 ML VIAL IV ONE; +SODIUM CHLORIDE 0.9% 1000ML 1,000 ML IV SCH; +SODIUM CHLORIDE 0.9% INJ 10 ML VIAL ONE
--- NOTE | 2017-07-08 06:58 | History & Physical Bridge - [place] ---
H&P Re-Evaluation Bridge Note: I have examined the patient, reviewed the History & Physical and in the interval since the performance of the History & Physical I have noted the following changes of clinical significance: recent diagnosis of breast ca
--- NOTE | 2017-07-08 08:40 | [facility] Post Operative Brief Note ---
Immediate Operative Summary Operative Date Jul 08, 2017. 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 Suture at 12 O'Clock. Specimen out of patient at 0745. Frozen report - well differentiated SCC, margins negative Anesthesia Type MAC Complication(s) none Disposition Disposition: Recovery Room / PACU
[2017-07-08 08:45] VITALS: TEMP 36.7
--- NOTE | 2017-07-08 08:47 | Discharge Instructions ---
Discharge Instructions Date of Service Jul 08, 2017. Admission Reason for Admission: Right Lower Extremity Squamous Cell Ca Discharge Discharge Diagnosis / Problem: squamous cell carcinoma Discharge Goals Goal(s): Decrease discomfort, Improve function Activity Recommendations Activity Limitations: as noted below ACTIVITY RECOMMENDATIONS: __Normal activities _x_No bending, lifting or straining. Limit walking and use walker __No driving __Driving allowed when you are off pain medications __Walking permitted __You should have help at home for ___ days DRESSINGS: __No dressings required _x_Keep dressings dry/in place until first office visit __Remove dressings ___ and leave dressings off __Apply ice ___ days __Remove dressings and reapply garment __Apply antibiotic ointment (Bacitracin, Neosporin, etc) to wounds 3-4 times/ day for 10 days BATHING: _x_Keep dressings dry _x_Sponge bathing permitted away from incision areas __Showering permitted _x_No swimming, hot tubs or soaking in a tub MEDICATIONS: Resume previous medications unless instructed otherwise by your surgeon. _x_Do not use aspirin, Motrin, Advil or Ibuprofen as these may promote bleeding. Please use Tylenol. _x_Prescription(s) provided: prescriptions for antibiotics and pain medication were provided at your last office visit. Begin antibiotics today OTHER INSTRUCTIONS: __Record drain output 2-3 times per day SPECIAL CARE INSTRUCTIONS: * It is normal to have a mild fever after surgery. If your temperature is higher than 101.5 degrees F, please call the office at [phone]. * Constipation is a typical side effect of pain medication. An over-the- counter stool softener will help relieve this. * Leaking around surgical drains may occur and should not cause concern. Sometimes these drains become clogged. If this happens, remove the bulb and milk the clot out of the tube, then replace the bulb. * Drainage from wounds after liposuction is normal and should be expected. Garments will become soiled. You should protect furniture and bedding. This drainage should mostly subside within 2-3 days. Leave garments in place unless instructed to remove them. * If you have unusual drainage from a wound or are concerned you have an infection or have any questions or concerns, please call the office at [phone]. FOLLOW UP VISIT: If not already scheduled, please call the office, , when you return home after surgery to schedule an appointment to be seen in _2__ days. . Current Hospital Diet Patient's current hospital diet: Discharge Diet Recommended Diet: Regular Diet Procedures Procedures Performed: Right Anterior Lower Leg Squamous Cell Carcinoma Excision With Frozen Section, Full Thickness Graft Pending Studies Studies pending at discharge: yes List of pending studies: pathology Medical Emergencies . Who to Call and When: Medical Emergencies: If at any time you feel your situation is an emergency, please call 911 immediately. . Non-Emergent Contact Non-Emergency issues call your: Primary Care Provider, Surgeon . "Provider Documentation" section prepared by Liliana Montelongo. . VTE Core Measure Inpt VTE Proph given/why not?: SCD's [place] Drug Monitoring Program Search Results: no issues identified
--- NOTE | 2017-07-08 09:29 | Anesthesia Progress Nt - [facility] ---
Anesthesia Post Op Note Date & Time Jul 08, 2017 at 09:29 Vital Signs Pain Intensity: 0 Vital Signs Past 12 Hours Date Time Temp Pulse Resp B/P (MAP) Pulse Ox O2 Delivery O2 Flow Rate FiO2 07/08/17 06:34 36.6 70 16 115/78 (90) 99 Room Air Notes Mental Status: alert / awake / arousable, participated in evaluation Pt Amnestic to Procedure: Yes Nausea / Vomiting: adequately controlled Pain: adequately controlled Airway Patency, RR, SpO2: stable & adequate BP & HR: stable & adequate Hydration State: stable & adequate Anesthetic Complications: no major complications apparent
[2017-07-08 09:30] VITALS: BP 130/72; PULSE 84; O2SAT 96
--- NOTE | 2017-07-08 15:52 | OPERATIVE REPORT ---
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 POSTOPERATIVE DIAGNOSIS: Same. PROCEDURE: Excision right anterior lower leg squamous cell carcinoma with frozen section and placement of full thickness skin graft. SURGEON: Dr. Yohana Guillen. CREATIVE SERVICES DESIGNER: Liliana Montelongo PA-C. ANESTHESIA: Local with sedation. COMPLICATIONS: None. INDICATION FOR THE PROCEDURE: The patient is an 81-year-old female who was referred [place] [facility] for a squamous cell carcinoma of her right anterior lower leg which was biopsy proven. Following shave biopsy, it rapidly recurred. Given the location and large size, we discussed performing this in the operating room as a skin graft would be required to achieve closure. BRIEF DESCRIPTION OF THE PROCEDURE: The risks, benefits and alternatives of the procedure were explained to the patient who agreed and signed consent. She was identified and marked in the preoperative holding area. She was brought to the operating room where she was positioned supine and placed under anesthesia without incident. Surgical site was prepped and draped sterilely. A time-out procedure was performed. I began by marking margins around the squamous cell carcinoma. There was an obvious lesion as well as some surrounding erythema and I marked this with a 5 mm margin for maximal excision diameter of 3 cm. Donor site in the right groin was then marked for graft harvest and 1% lidocaine with epinephrine was used to anesthetize the planned incisions. A 15 blade scalpel was used to make the elliptical incision. The graft was harvested full thickness and passed off to my physician certified medical technician assistant for graft preparation. Hemostasis was achieved with electrocautery. Immediately prior to graft harvest, the right anterior lower leg squamous cell carcinoma excision area was injected with 1% lidocaine with epinephrine. A 15 blade scalpel was used to make the incision with the above-mentioned margins. A suture was placed at 12 o'clock for margins and specimen was sent to pathology. While awaiting frozen section results, the right groin donor site was closed using 3-0 Vicryl interrupted dermal sutures and 3-0 Monocryl running subcuticular suture. Dermabond was applied. Graft was defatted using curved iris scissor by my physician certified medical technician assistant. It was inset into the recipient site using 4-0 silk tie over bolster sutures and 4-0 chromic interrupted sutures. Frozen section report showed well-differentiated squamous cell carcinoma with negative margins. A bolster dressing consisting of Xeroform and saline moistened cotton was created. Given the location, a splint was applied. The wound was dressed using 4 x 4s, Kerlix, cast padding followed by splint and Lukas bandages. The procedure was tolerated well. Maximal excision diameter of 3 cm x 3 cm. Liliana Montelongo was present and scrubbed for excision of the lesion and preparing of the graft. I attest to the content of the Intraoperative Record and any orders documented therein. Any exception s are noted below.
== END | disposition home or self-care (01) ==
LOC: X.SURG 06:14
PROVIDERS: ATTEND Plastic Surgery
DX: C44.722 Squamous cell carcinoma of skin of right lower limb, including hip (principal); I65.29 Occlusion and stenosis of unspecified carotid artery; M19.90 Unspecified osteoarthritis, unspecified site; F32.9 Major depressive disorder, single episode, unspecified; E78.5 Hyperlipidemia, unspecified; K21.9 Gastro-esophageal reflux disease without esophagitis; I10 Essential (primary) hypertension; K58.9 Irritable bowel syndrome, unspecified; E78.00 Pure hypercholesterolemia, unspecified; G47.33 Obstructive sleep apnea (adult) (pediatric); Z91.81 History of falling; Z87.440 Personal history of urinary (tract) infections; Z90.89 Acquired absence of other organs; Z98.49 Cataract extraction status, unspecified eye; Z82.49 Family history of ischemic heart disease and other diseases of the circulatory system; Z84.1 Family history of disorders of kidney and ureter; Z82.0 Family history of epilepsy and other diseases of the nervous system; Z87.891 Personal history of nicotine dependence; Z85.3 Personal history of malignant neoplasm of breast; Z85.828 Personal history of other malignant neoplasm of skin; Z95.0 Presence of cardiac pacemaker; Z79.82 Long term (current) use of aspirin

== ENCOUNTER → 2017-08-14 | Outpatient (CLI) | payer BC ==
[~2017-08-14] MED LIST changes: -ACETAMINOPHEN 325 MG TAB PO PRN; -ATROPINE SULFATE 0.1 MG/ML 5ML SYR IV PRN; -CEFAZOLIN 2000MG IV PUSH 10 ML IV SCH; -DEXAMETHASONE SOD INJ 4 MG/ML VIAL ONE; -EpHEDrine SULFATE INJ 50 MG/ML AMP IV PRN; -EpHEDrine SULFATE INJ 50 MG/ML AMP ONE; -FENTANYL CITRATE INJ 50 MCG/1 ML 2 ML VIAL IV PRN; -FENTANYL CITRATE INJ 50 MCG/1 ML 2 ML VIAL ONE; -LACTATED RINGER'S 1000ML 1,000 ML IV SCH; -LIDOCAINE HCL 2% 2 ML VIAL (20MG/ML) ONE; -LIDOCAINE/EPINEPHRINE 1% 20 ML VIAL ONE; -METOCLOPRAMIDE HCL INJ 5 MG/ML 2 ML VIAL IV PRN; -MIDAZOLAM HCL 1 MG/ML 2ML VIAL ONE; -ONDANSETRON INJ 2 MG/ML 2 ML VIAL IV PRN; -ONDANSETRON INJ 2 MG/ML 2 ML VIAL ONE; -OXYCODONE/ACETAMINOPHEN 5-325 TAB PO PRN; -PROPOFOL IV EMULSION 10 MG/ML 20 ML VIAL IV ONE; -SODIUM CHLORIDE 0.9% 1000ML 1,000 ML IV SCH; -SODIUM CHLORIDE 0.9% INJ 10 ML VIAL ONE
[2017-08-14 12:22] LABS: BASO % 0.4 %; BASO ABS # 0.02 K/uL (0-0.2); EOS % 5.1 %; EOS ABS # 0.28 K/uL (0-0.5); HEMATOCRIT 38.3 % (37-47); HEMOGLOBIN 12.3 g/dL (12.0-16.0); IG# 0.02 K/uL (0.00-0.02); LYMPH % 25.4 %; LYMPH ABS # 1.38 K/uL (1.2-3.4); MEAN CELL VOLUME 93.9 fL (80-100); MEAN CORPUSCULAR HEMOGLOBIN 30.1 pg (25-34); MEAN CORPUSCULAR HGB CONC 32.1 g/dl (32-36); MEAN PLATELET VOLUME 9.4 fL (7.4-10.4); MONO % 11.8 %; MONO ABS # 0.64 K/uL (0.11-0.59); NEUT % 56.9 %; PLATELET COUNT 209 K/uL (130-400); RED CELL DISTRIBUTION WIDTH SD 48.1 fL (36.4-46.3); WHITE BLOOD COUNT 5.44 K/uL (4.8-10.8)
[2017-08-14 13:29] LABS: BLOOD UREA NITROGEN 20 mg/dl (7-18); CALCIUM 9.2 mg/dl (8.5-10.1); CARBON DIOXIDE 29 mmol/L (21-32); CREATININE 0.93 mg/dl (0.60-1.20); GLUCOSE 84 mg/dl (70-99); POTASSIUM 4.4 mmol/L (3.5-5.1); SODIUM 137 mmol/L (136-145)
== END | disposition home or self-care (01) ==
LOC: C.LAB 11:20
PROVIDERS: ATTEND Physician Assistant Medical
DX: I10 Essential (primary) hypertension (principal); R73.9 Hyperglycemia, unspecified; M19.90 Unspecified osteoarthritis, unspecified site; M54.16 Radiculopathy, lumbar region; R39.9 Unspecified symptoms and signs involving the genitourinary system

== ENCOUNTER 2017-08-25 08:03 | Day surgery (SDC) | payer BC ==
[2017-07-16 11:14] VITALS: BMI 24.0
[~2017-08-25] VITALS: Ht 149.9 cm; Wt 54.5 kg
[2017-08-25] VITALS (7 sets, daily range): BP systolic 110–145; BP diastolic 54–99; PULSE 69–75; TEMP 36.3–36.8; O2SAT 95–100; Ht 149.9 cm; Wt 54.5 kg
[~2017-08-25 08:03] MED LIST changes: +CEFAZOLIN 2000MG IV PUSH 15 ML IV SCH; -CEPH500C2 PO; +LACTATED RINGER'S 1000ML 1,000 ML IV SCH
[2017-08-25] MEDS ORDERED: ATROPINE SULFATE 0.1 MG/ML 5ML SYR IV PRN (08:45)
[2017-08-25] MEDS ORDERED: ONDANSETRON INJ 2 MG/ML 2 ML VIAL IV PRN ×2 (08:45→13:45)
[2017-08-25] MEDS ORDERED: EpHEDrine SULFATE INJ 50 MG/ML AMP IV PRN (08:45)
--- NOTE | 2017-08-25 10:58 | DIAGNOSTIC IMAGING REPORT ---
LYMPHOSCINTIGRAPHY CLINICAL HISTORY: Left breast cancer. PROCEDURE: Using standard sterile technique, 4 intradermal and one deep injection of 0.493 mCi of Lymphoseek was placed in the left periareolar breast. The patient tolerated the procedure well. There were no immediate complications. The patient was subsequently transported to the surgical suite. No imaging was obtained at the referring physician's request. IMPRESSION: Injection of 0.493 mCi of Lymphoseek in the left breast. Electronically signed by: Adama Donohue M.D. 08/25/2017 10:56 AM Dictated Date/Time: 08/25/2017 10:56 AM
[2017-08-25] MEDS ORDERED: PROPOFOL IV EMULSION 10 MG/ML 20 ML VIAL IV ONE ×2 (11:59→13:54)
[2017-08-25] MEDS ORDERED: FENTANYL CITRATE INJ 50 MCG/1 ML 2 ML VIAL ONE ×2 (11:59→14:02)
[2017-08-25] MEDS ORDERED: ONDANSETRON INJ 2 MG/ML 2 ML VIAL ONE (11:59)
[2017-08-25] MEDS ORDERED: MIDAZOLAM HCL 1 MG/ML 2ML VIAL ONE (11:59)
[2017-08-25] MEDS ORDERED: LIDOCAINE HCL 2% 2 ML VIAL (20MG/ML) ONE ×2 (11:59→13:54)
[2017-08-25] MEDS ORDERED: DEXAMETHASONE SOD INJ 4 MG/ML VIAL ONE (11:59)
[2017-08-25] MEDS ORDERED: ISOSULFAN BLUE 10 MG/ML VIAL 5 ML ONE (12:20)
[2017-08-25] MEDS ORDERED: BUPIVACAINE 0.5 % 5 MG/1 ML MPF 30ML VIAL ONE (12:20)
[2017-08-25] MEDS ORDERED: PHENYLEPHRINE 100MCG/ML 5ML SYR ONE (12:58)
[2017-08-25] MEDS ORDERED: METHYLENE BLUE 0.5% 10 ML VIAL ONE (13:20)
--- NOTE | 2017-08-25 13:38 | [facility] Operative Report ---
Operative Report Operative Date Aug 25, 2017. Pre-Operative Diagnosis Lt breast cancer Post-Operative Diagnosis same Procedure(s) Performed Lt breast lumpectomy with sentinel lymph node bx Surgeon Dre Movie Extra Surgeon(s) Lay Payton Estimated Blood Loss 10 cc Findings clip w/n breast tissue SLN negative Drains None Anesthesia Type General Complication(s) none Disposition Recovery Room / PACU I attest to the content of the Intraoperative Record and any orders documented therein. Any exceptions are noted below.
[2017-08-25] MEDS ORDERED: LACTATED RINGER'S 1000ML 1,000 ML IV SCH (13:39)
[2017-08-25] MEDS ORDERED: MoRPHine SULFATE 2 MG/ML CARP IV PRN (13:45)
[2017-08-25] MEDS ORDERED: MoRPHine SULFATE 4 MG/ML 1 ML CARP\\VIAL IV PRN (13:45)
[2017-08-25] MEDS ORDERED: TRAMADOL HCL 50 MG TAB PO PRN (13:45)
--- NOTE | 2017-08-25 13:58 | OPERATIVE REPORT ---
DATE OF OPERATION: 08/25/2017 NAME OF OPERATION: Needle localization left lumpectomy with sentinel lymph node biopsy. PREOPERATIVE DIAGNOSIS: Left breast cancer. POSTOPERATIVE DIAGNOSIS: Same. STAFF SURGEON: Dr. Erickson. TELETYPE ADJUSTER: Niraj Payton PA-C. ANESTHESIA: General. DESCRIPTION OF PROCEDURE: The patient was brought in the operating room and placed on the operating table in supine position. Her left chest and breast and axilla were prepped and draped in usual fashion. Using the Neoprobe, incision was made in the left axilla carrying dissection down deeply identifying the sentinel lymph node and sending it for frozen section. The frozen section was negative, but during the frozen section, we did perform lumpectomy. There was a needle in the upper left breast. Elliptical incision was made around the needle carrying dissection widely down around the needle excising the tissue. It was marked with the needle/skin anterior, long silk lateral, short silk medial. It was placed into the Faxitron. Image sent to the breast center. The clip was in the center of the specimen. At this point, I took additional tissue superiorly and inferiorly with a long silk suture on the lateral edge and methylene blue marking the new margin. Clips were placed on the chest wall at the level of the mass and then the deep tissue and both incisions closed using 2-0 plain catgut suture, then the skin reapproximated in the axilla using 4-0 nylon suture and the breast using interrupted 5-0 Prolene suture. Dressings applied and patient transferred to the recovery room in stable condition. My assistant accounting manager helped with exposure of the breast tissue and then closure of the wounds. I attest to the content of the Intraoperative Record and any orders documented therein. Any exception s are noted below.
--- NOTE | 2017-08-25 13:59 | MAMMOGRAPHY REPORT ---
NEEDLE LOCALIZATION LEFT BREAST: 08/25/2017 CLINICAL HISTORY: Biopsy-proven left breast cancer. PROCEDURE DESCRIPTION: With ultrasound guidance, aseptic technique, and 1% lidocaine as the local ane sthetic, the mass and associated biopsy marker clip in the left 12:00 breast was localized with a 3 c m Montelongo II needle. The path of approach was lateral. Postprocedural mammograms were obtained of t he left breast after the needle localization, which shows the biopsy marker clip and spiculated mass to be located along the distal portion of the wire centered at the level of the robert. The needle was left in place. The patient tolerated the procedure without complication. COMPARISON: Comparison is made to exams dated: 08/25/2017 specimen, 07/01/2017 mammogram, 07/01/2017 ul trasound biopsy, 06/25/2017 ultrasound, 06/25/2017 mammogram, and 06/17/2017 mammogram - [facility]. IMPRESSION: NEEDLE LOCALIZATION Ultrasound-guided needle localization of the mass and associated biopsy clip in the left 12:00 breast . Krupa Begum M.D. ah/:08/25/2017 08:34:38 Team Otr Truck Driver: Michelle Turpin, [facility]
--- NOTE | 2017-08-25 13:59 | MAMMOGRAPHY REPORT ---
UNILATERAL LEFT DIGITAL DIAGNOSTIC MAMMOGRAM TOMOSYNTHESIS: 08/25/2017 CLINICAL HISTORY: Status post ultrasound-guided needle localization. TECHNIQUE: Breast tomosynthesis in addition to standard 2D mammography was performed. Left CC and M L 2D and tomosynthesis images were obtained. COMPARISON: Comparison is made to exams dated: 08/25/2017 localization - [facility] , 07/01/2017 mammogram, 07/01/2017 ultrasound biopsy, 06/25/2017 ultrasound, and 06/25/2017 mammogram - [facility]. BREAST COMPOSITION: There are scattered areas of fibroglandular density in the left breast. FINDINGS: The spiculated mass and associated biopsy marker clip in the left 12:00 breast are located along the distal portion of the wire, centered at the robert. IMPRESSION: The spiculated mass and associated biopsy marker clip are located along the distal portion of the loc alization wire. Approximately 10% of breast cancers are not detected with mammography. A negative mammographic report should not delay biopsy if a clinically suggestive mass is present. Krupa Begum M.D. ah/:08/25/2017 08:41:00 Rejector: Michelle Turpin [facility] BI-RADS Code: n/a
[2017-08-25] MEDS ORDERED: IV FLUIDS COMPLETED PRN (14:00)
[2017-08-25] MEDS: FENTANYL CITRATE INJ 50 MCG/1 ML 2 ML VIAL IV PRN ×2 (14:03→14:08)
[2017-08-25] MEDS ORDERED: ESCITALOPRAM OXALATE 10 MG TAB PO SCH ×2 (15:15)
--- NOTE | 2017-08-25 15:23 | Medical Consult ---
Consultation Date of Consultation: Aug 25, 2017. Attending Physician: Tavon Erickson M.D. Reason for Consultation: Medical Management History of Present Illness This is an 81 yo F with PMhx breast nodule found via mammography with core bx ER /SC +, HER2 neg, of the left breast with hx of invasive ductal carcinoma of right breast over 20 years ago, HTN, HLD, GERD, hx basal cell carcinoma of the skin on RLE with plans for wound vac placement this week, and osteoarthritis who is s/p Left breast lumpectomy and sentinel lymph node dissection/biopsy by Dr. Erickson on 08/25. Pt reports feeling a little sore in the Left chest, but other than that feels well. She has been eating and drinking since surgery without difficulty. Pt is anticipating being discharged tomorrow. She lives at home with her , who was present at bedside along with two daughters. All their questions and concerns were addressed. 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 (3) Coronary Atherosclerosis Of [place] Coronary Vessel (4) HTN (5) Depressive Disorder Nec (6) Diverticulosis Colon (W/O Ment Of Hemorrhage) (7) Esophageal Reflux (8) ROB (generalized anxiety disorder) (9) GERD (gastroesophageal reflux disease) (10) History of invasive malignant neoplasm of breast (11) History Of Tobacco Use (12) HLD (hyperlipidemia) Surgical Problems: (1) Hx of appendectomy (2) Hx of breast biopsy (3) Hx of cataract surgery (4) Hx of shoulder surgery Family History FH: Alzheimers disease FH: HTN (hypertension) FH: heart disease Social History Smoking Status: Former Smoker Smokeless Tobacco Use: No Alcohol Use: occasionally (1 beer per week) Drug Use: none, other Marital Status: Housing Status: lives with significant other Occupation Status: employed, retired Allergies Coded Allergies: Sulfa Antibiotics (Verified Allergy, Mild, RASH, 08/25/17) Adhesives (Verified Allergy, Unknown, SKIN IRRITATIONS, 07/16/17) Ciprofloxacin (Verified Allergy, Unknown, UNKNOWN, 07/16/17) Iodine (Verified Allergy, Unknown, IV AND TOPICAL IODINE-RASH, 07/16/17) Levofloxacin (Verified Allergy, Unknown, UNKNOWN, 07/16/17) Codeine (Verified Adverse Reaction, Intermediate, VERY ILL & DIZZY, 07/16/17 ) Sertraline (Verified Adverse Reaction, Unknown, ZOLOFT-DIARRHEA, 08/25/17) ALLSCRIPTS Current Inpatient Medications Current Inpatient Medications Medications (Trade) Dose Ordered Sig/Raffaele Route Start Time Stop Time Status Last Admin Dose Admin Cefazolin Sodium 15 ml @ 2.5 mls/min PREOP IV 08/25/17 06:00 08/25/17 18:00 08/25/17 12:34 2.5 MLS/MIN Lactated Ringer's 1,000 ml @ 15 mls/hr Q24H IV 08/25/17 06:00 08/26/17 05:59 08/25/17 12:13 15 MLS/HR Atorvastatin Calcium (Lipitor Tab) 20 mg HS PO 08/25/17 21:00 09/24/17 20:59 Telmisartan (Micardis Tab) 40 mg QAM PO 08/26/17 09:00 09/25/17 08:59 Lactated Ringer's 1,000 ml @ 50 mls/hr Q20H IV 08/25/17 13:39 08/25/17 16:00 Cefazolin Sodium 1000 mg/Syringe 7.5 ml @ 2.5 mls/min Q8H IV 08/25/17 20:00 08/26/17 12:02 Morphine Sulfate (MoRPHine SULFATE INJ) 2 mg Q4H PRN IV 08/25/17 13:45 09/08/17 13:44 Morphine Sulfate (MoRPHine SULFATE INJ) 4 mg Q4H PRN IV 08/25/17 13:45 09/08/17 13:44 Ondansetron HCl (Zofran Inj) 4 mg Q6H PRN IV 08/25/17 13:45 09/24/17 13:44 Tramadol HCl (Ultram Tab) @ Q4H PRN PO 08/25/17 13:45 09/24/17 13:44 Miscellaneous (Iv Fluids Completed) 1 ea PRN PRN N/A 08/25/17 14:00 08/25/18 13:59 Escitalopram Oxalate (Lexapro Tab) 10 mg Q2D@1200 PO 08/25/17 15:15 09/24/17 15:14 Escitalopram Oxalate (Lexapro Tab) 5 mg Q2D@1200 PO 08/26/17 12:00 09/25/17 11:59 Review of Systems Constitutional: No fever, No chills, No sweats, No fatigue Eyes: No redness, No diplopia ENT: No sore throat, No trouble swallowing Respiratory: No cough, No sputum, No shortness of breath Cardiovascular: No chest pain, No edema, No palpitations Abdomen: No pain, No nausea, No vomiting, No diarrhea, No constipation, No GI bleeding Musculoskeletal: No joint pain, No swelling, No calf pain Genitourinary - Female: + problem reported (bladder prolapse) Neurologic: No numbness/tingling, No balance problems Psychiatric: + depression symptoms, + anxiety (well controlled with lexapro) Physical Exam Date Time Temp Pulse Resp B/P (MAP) Pulse Ox O2 Delivery O2 Flow Rate FiO2 08/25/17 14:25 36.6 79 16 133/61 99 Nasal Cannula 2 08/25/17 14:15 76 16 126/70 100 Nasal Cannula 2 08/25/17 14:05 71 16 135/65 100 Oxymask 10 08/25/17 13:55 81 16 139/60 99 Oxymask 10 08/25/17 13:48 36.7 82 16 149/80 100 Oxymask 10 08/25/17 10:14 36.6 70 20 115/54 (74) 100 Room Air General Appearance: WD/WN, no apparent distress, + thin Head: normocephalic, atraumatic Eyes: PERRL, EOMI ENT: hearing grossly normal, pharynx normal Neck: supple, no JVD Respiratory/Chest: lungs clear, no respiratory distress, no accessory muscle use, + pertinent finding (bandage over Left chest wall c/d/i) Cardiovascular: regular rate, rhythm, no murmur Abdomen/GI: normal bowel sounds, non tender, soft Back: normal inspection Extremities/Musculoskelatal: no calf tenderness, no pedal edema, + pertinent finding (RLE circular wound covered with dressing ) Neurologic/Psych: alert, normal mood/affect, normal reflexes Assessment & Plan This is an 81 yo F with PMhx breast nodule found via mammography with core bx ER /SC +, HER2 neg, of the left breast with hx of invasive ductal carcinoma of right breast over 20 years ago, HTN, HLD, GERD, hx basal cell carcinoma of the skin, and osteoarthritis who is s/p Left breast lumpectomy and sentinel lymph node biopsy by Dr. Erickson on 08/25. S/p Left breast lumpectomy/sentinel lymph node bx - Pain management, dvt ppx, and bowel regimen per the primary team - holding outpt asa 81 mg dialy - Pathology report to be followed by surg and PCP as outpatient HTN HLD - continue telmisartan 40 mg QAM. resume asa 81 mg when ok with primary team, likely within 24 hours. - Continue lipid agent GERD - Change omeprazole to protonix while inpatient Depression/ROB - Continue lexapro Osteoarthritis - Resume Vit D at time of discharge RLE wound/ BCC - Follows with wound as outpatient, wound vac scheduled to be placed this Friday by Dr. Guillen. - May use home dressings - nursing to change daily. Alcohol Use - Drinks 1/2 beer at a time, about 1-2x per week. CODE STATUS: FULL Disposition: From home, discharge per primary team Thank you for the consult of Mrs. Brown, please do not hesitate to call with questions or concerns. Her family was updated at bedside and all questions and concerns were answered.
--- NOTE | 2017-08-25 15:41 | Anesthesiology Progress Note ---
Anesthesia Post Op Note Date & Time Aug 25, 2017 at 15:41 Vital Signs Pain Intensity: 3.0 Vital Signs Past 12 Hours Date Time Temp Pulse Resp B/P (MAP) Pulse Ox O2 Delivery O2 Flow Rate FiO2 08/25/17 15:00 36.5 71 18 123/68 (86) 97 Nasal Cannula 2.0 08/25/17 14:35 Nasal Cannula 2.0 08/25/17 14:35 36.8 75 145/99 (114) 97 Nasal Cannula 2.0 08/25/17 14:25 36.6 79 16 133/61 99 Nasal Cannula 2 08/25/17 14:15 76 16 126/70 100 Nasal Cannula 2 08/25/17 14:05 71 16 135/65 100 Oxymask 10 08/25/17 13:55 81 16 139/60 99 Oxymask 10 08/25/17 13:48 36.7 82 16 149/80 100 Oxymask 10 08/25/17 10:14 36.6 70 20 115/54 (74) 100 Room Air Notes Mental Status: alert / awake / arousable, participated in evaluation Pt Amnestic to Procedure: Yes Nausea / Vomiting: adequately controlled Pain: adequately controlled Airway Patency, RR, SpO2: stable & adequate BP & HR: stable & adequate Hydration State: stable & adequate Anesthetic Complications: no major complications apparent
--- NOTE | 2017-08-25 17:52 | Discharge Instructions ---
Discharge Instructions Date of Service Aug 25, 2017. Admission Reason for Admission: Left Breast Cancer W/Hosp Loc & Nm Inj Discharge Discharge Diagnosis / Problem: Lt breast cancer Discharge Goals Goal(s): Decrease discomfort, Improve function, Improve disease control Activity Recommendations Activity Limitations: as noted below Lifting Limitations: no more than 10 pounds Exercise/Sports Limitations: until after follow-up appointment May Resume Sexual Activity: when tolerated Shower/Bathe: tomorrow Driving or Machine Use: resume 3 days after discharge . Instructions / Follow-Up Instructions / Follow-Up SPECIAL CARE INSTRUCTIONS: * Cover incisions and change daily for comfort/drainage. * May use ibuprofen for pain as tolerated. * Expect some swelling and bruising. Call your doctor if: * Temperature above 101 degrees * Pain not relieved by pain medicine ordered * There is increased drainage or redness from any incision * You have any unanswered questions or concerns [phone]. FOLLOW UP VISIT: If not already scheduled, please call the office for a follow-up visit. for next week- some suture removal OFFICE PHONE NUMBER: Dr. Erickson Office Current Hospital Diet Patient's current hospital diet: Regular Diet Discharge Diet Recommended Diet: Regular Diet Procedures Procedures Performed: Lt breast lumpectomy with sentinel lymph node bx Pending Studies Studies pending at discharge: no Medical Emergencies . Who to Call and When: Medical Emergencies: If at any time you feel your situation is an emergency, please call 911 immediately. . Non-Emergent Contact Non-Emergency issues call your: Primary Care Provider, Surgeon . "Provider Documentation" section prepared by Tavon Erickson. .
[2017-08-25] MEDS ORDERED: TRAM-453 PO (17:54)
[2017-08-25] MEDS: CEFAZOLIN IV 1,000 MG in SYRINGE 0 ML IV SCH (19:43)
[2017-08-25] MEDS ORDERED: ATORVASTATIN 20 MG TAB PO SCH (21:00)
[2017-08-26 03:26] VITALS: BP 121/60; PULSE 77; TEMP 36.4; O2SAT 95
[2017-08-26] MEDS: CEFAZOLIN IV 1,000 MG in SYRINGE 0 ML IV SCH (04:24)
--- NOTE | 2017-08-26 06:15 | Surgery Progress Note ---
Surgery Progress Note Date of Service Aug 26, 2017. Subjective awake , alert- minimal pain Objective Vital Signs: Date Time Temp Pulse Resp B/P (MAP) Pulse Ox O2 Delivery O2 Flow Rate FiO2 08/26/17 03:26 36.4 77 18 121/60 (80) 95 Room Air 08/26/17 00:00 Room Air 08/25/17 22:23 36.7 71 17 112/61 (78) 96 Room Air 08/25/17 19:00 36.6 75 17 138/74 (95) 96 Room Air 08/25/17 17:30 36.5 70 17 113/61 (78) 95 Room Air 08/25/17 16:30 36.3 69 18 110/55 (73) 98 Room Air 08/25/17 15:30 Nasal Cannula 2.0 08/25/17 15:00 36.5 71 18 123/68 (86) 97 Nasal Cannula 2.0 08/25/17 14:35 Nasal Cannula 2.0 08/25/17 14:35 36.8 75 145/99 (114) 97 Nasal Cannula 2.0 08/25/17 14:25 36.6 79 16 133/61 99 Nasal Cannula 2 08/25/17 14:15 76 16 126/70 100 Nasal Cannula 2 08/25/17 14:05 71 16 135/65 100 Oxymask 10 08/25/17 13:55 81 16 139/60 99 Oxymask 10 08/25/17 13:48 36.7 82 16 149/80 100 Oxymask 10 08/25/17 10:14 36.6 70 20 115/54 (74) 100 Room Air General Appearance: no apparent distress Neck: supple Respiratory/Chest: no respiratory distress Incision(s): intact Assessment & Plan 08/26/17- s/p Lt partial mastectomy with sentinel lymph node bx doing very well- d/c today with visiting nurse
[2017-08-26 07:20] VITALS: BP 113/60; PULSE 60; TEMP 36.4; O2SAT 99
[2017-08-26 07:22] VITALS: BP 113/60; PULSE 60; TEMP 36.4; O2SAT 99
--- NOTE | 2017-08-26 07:37 | Anesthesiology Progress Note ---
Anesthesia Post Op Note Date & Time Aug 26, 2017 at 07:36 Vital Signs Pain Intensity: 0.0 Vital Signs Past 12 Hours Date Time Temp Pulse Resp B/P (MAP) Pulse Ox O2 Delivery O2 Flow Rate FiO2 08/26/17 07:22 36.4 60 19 99 Room Air 08/26/17 07:20 36.4 60 19 113/60 (77) 99 Room Air 08/26/17 03:26 36.4 77 18 121/60 (80) 95 Room Air 08/26/17 00:00 Room Air 08/25/17 22:23 36.7 71 17 112/61 (78) 96 Room Air Notes Mental Status: alert / awake / arousable, participated in evaluation Pt Amnestic to Procedure: Yes Nausea / Vomiting: adequately controlled Pain: adequately controlled Airway Patency, RR, SpO2: stable & adequate BP & HR: stable & adequate Hydration State: stable & adequate Anesthetic Complications: no major complications apparent
--- NOTE | 2017-08-26 08:30 | DISCHARGE SUMMARY ---
PRINCIPAL DIAGNOSIS: Left breast cancer. PROCEDURES: The patient underwent left partial mastectomy with sentinel lymph node biopsy. HISTORY OF PRESENT ILLNESS: The patient is an 81-year-old female who has biopsy proven left breast cancer for definitive surgery. The patient was taken to the operating room on 08/26/2017 where she underwent needle localization left breast lumpectomy with sentinel lymph node biopsy which she tolerated very well. The sentinel lymph node was negative. She is doing well and is felt stable for discharge home today to be seen in the surgical clinic next week.
[2017-08-26] MEDS ORDERED: PANTOprazole SOD 40 MG TAB PO SCH (09:00)
[2017-08-26] MEDS ORDERED: TELMISARTAN 40 MG TAB PO SCH (09:00)
--- NOTE | 2017-08-26 11:41 | Hospitalist Progress Note ---
Hospitalist Progress Note Date of Service Aug 26, 2017. Subjective Pt evaluation today including: conversation w/ patient, physical exam, chart review, lab review, review of studies Pain: Minimal soreness around the left axillary region, left breast PO Intake: Good Voiding: no voiding problems The patient was seen and examined this morning. Patient reports feeling well today. She has some slight soreness around the left axillary region and left breast feels that her pain is relatively well controlled. She took one narcotic pain medication last night, and other than this has been using Tylenol. Patient denies any sort of abdominal pain, nausea, vomiting and is passing gas. She has not yet had a bowel movement and reports normally not for several days of time. She is anticipating going home today. Home health are scheduled to go to her house for dressing changes. Additional Comments: Constitutional: No fever, sweats or chills Eyes: No diplopia, no worsening or blurred vision ENT: normal hearing, no trouble swallowing Respiratory: No cough, sputum, dyspnea at rest or on exertion Cardiovascular: No chest pain, tightness or palpitations Abdomen: No pain, nausea, vomiting, diarrhea or constipation Musculoskeletal: No joint pain, calf pain, swelling Neurologic: No weakness, numbness/tingling, or balance problems Psychiatric: No anxiety or depression Skin: No rash or itch Objective Vital Signs Date Time Temp Pulse Resp B/P (MAP) Pulse Ox O2 Delivery O2 Flow Rate FiO2 08/26/17 07:45 Room Air 08/26/17 07:22 36.4 60 19 99 Room Air 08/26/17 07:20 36.4 60 19 113/60 (77) 99 Room Air 08/26/17 03:26 36.4 77 18 121/60 (80) 95 Room Air 08/26/17 00:00 Room Air 08/25/17 22:23 36.7 71 17 112/61 (78) 96 Room Air 08/25/17 19:00 36.6 75 17 138/74 (95) 96 Room Air 08/25/17 17:30 36.5 70 17 113/61 (78) 95 Room Air 08/25/17 16:30 36.3 69 18 110/55 (73) 98 Room Air 08/25/17 15:30 Nasal Cannula 2.0 08/25/17 15:00 36.5 71 18 123/68 (86) 97 Nasal Cannula 2.0 08/25/17 14:35 Nasal Cannula 2.0 08/25/17 14:35 36.8 75 145/99 (114) 97 Nasal Cannula 2.0 08/25/17 14:25 36.6 79 16 133/61 99 Nasal Cannula 2 08/25/17 14:15 76 16 126/70 100 Nasal Cannula 2 08/25/17 14:05 71 16 135/65 100 Oxymask 10 08/25/17 13:55 81 16 139/60 99 Oxymask 10 08/25/17 13:48 36.7 82 16 149/80 100 Oxymask 10 Physical Exam Notes: General Appearance: WD/WN, no apparent distress, + thin Head: normocephalic, atraumatic Eyes: PERRL, EOMI ENT: hearing grossly normal, pharynx normal Neck: supple, no JVD Respiratory/Chest: lungs clear, no respiratory distress, no accessory muscle use, + pertinent finding (bandage over Left chest wall c/d/i) Cardiovascular: regular rate, rhythm, no murmur Abdomen/GI: normal bowel sounds, non tender, soft Back: normal inspection Extremities/Musculoskeletal: no calf tenderness, no pedal edema, + pertinent finding (RLE circular wound covered with dressing ) Neurologic/Psych: alert, normal mood/affect, normal reflexes Assessment and Plan This is an 81 yo F with PMhx breast nodule found via mammography with core bx ER /NC +, HER2 neg, of the left breast with hx of invasive ductal carcinoma of right breast over 20 years ago, HTN, HLD, GERD, hx basal cell carcinoma of the skin, and osteoarthritis who is s/p Left breast lumpectomy and sentinel lymph node biopsy by Dr. Erickson on 08/25. S/p Left breast lumpectomy/sentinel lymph node bx - Pain management, dvt ppx, and bowel regimen per the primary team - holding outpt asa 81 mg daily - Pathology report to be followed by surg and PCP as outpatient -[facility] has been set up as an outpatient for dressing changes -Continue to encourage incentive spirometry, deep breaths and ambulation. HTN HLD - continue telmisartan 40 mg QAM. resume asa 81 mg when ok with primary team, likely within 24 hours. - Continue lipid agent GERD - Change omeprazole to protonix while inpatient Depression/ROB - Continue lexapro Osteoarthritis - Resume Vit D at time of discharge RLE wound/ BCC - Follows with wound as outpatient, wound vac scheduled to be placed this Friday by Dr. Guillen. - May use home dressings - nursing to change daily. Alcohol Use - Drinks 1/2 beer at a time, about 1-2x per week. CODE STATUS: FULL Disposition: From home, discharge per primary team today Thank you for the consult of Mrs. Brown, please do not hesitate to call with questions or concerns. Her family was updated at bedside and all questions and concerns were answered.
[2017-08-26] MEDS ORDERED: ESCITALOPRAM OXALATE 10 MG TAB PO SCH ×2 (12:00)
== END 2017-08-26 11:15 | disposition home health service (06) ==
LOC: C.ACU 08:03 → C.MSN 10:30 → ENRESERV 14:03
PROVIDERS: ADMIT Surgery; ATTEND Surgery
DX: C50.412 Malignant neoplasm of upper-outer quadrant of left female breast (principal); Z85.3 Personal history of malignant neoplasm of breast; I10 Essential (primary) hypertension; E78.5 Hyperlipidemia, unspecified; K21.9 Gastro-esophageal reflux disease without esophagitis; Z85.820 Personal history of malignant melanoma of skin; M19.90 Unspecified osteoarthritis, unspecified site; I25.10 Atherosclerotic heart disease of native coronary artery without angina pectoris; F32.9 Major depressive disorder, single episode, unspecified; F41.1 Generalized anxiety disorder; Z87.891 Personal history of nicotine dependence; Z90.89 Acquired absence of other organs; Z98.49 Cataract extraction status, unspecified eye; Z82.49 Family history of ischemic heart disease and other diseases of the circulatory system; Z82.0 Family history of epilepsy and other diseases of the nervous system; Z88.2 Allergy status to sulfonamides; Z88.1 Allergy status to other antibiotic agents; Z88.5 Allergy status to narcotic agent; Z88.8 Allergy status to other drugs, medicaments and biological substances; Z91.048 Other nonmedicinal substance allergy status

== ENCOUNTER → 2018-01-05 | Outpatient (CLI) | payer BC ==
[~2018-01-05] MED LIST changes: -CEFAZOLIN 2000MG IV PUSH 15 ML IV SCH; -LACTATED RINGER'S 1000ML 1,000 ML IV SCH
== END | disposition home or self-care (01) ==
LOC: C.MAMM 13:55
PROVIDERS: ATTEND Internal Medicine Hematology & Oncology
DX: C50.919 Malignant neoplasm of unspecified site of unspecified female breast (principal)

== ENCOUNTER → 2018-01-28 | Outpatient (CLI) | payer BC ==
[2018-01-28 16:53] LABS: BASO % 0.3 %; BASO ABS # 0.02 K/uL (0-0.2); EOS % 2.9 %; EOS ABS # 0.19 K/uL (0-0.5); IG# 0.01 K/uL (0.00-0.02); LYMPH % 31.1 %; LYMPH ABS # 2.05 K/uL (1.2-3.4); MEAN CELL VOLUME 94.1 fL (80-100); MEAN CORPUSCULAR HEMOGLOBIN 30.5 pg (25-34); MEAN CORPUSCULAR HGB CONC 32.4 g/dl (32-36); MEAN PLATELET VOLUME 9.9 fL (7.4-10.4); MONO % 6.8 %; MONO ABS # 0.45 K/uL (0.11-0.59); NEUT % 58.7 %; NEUT ABS # 3.88 K/uL (1.4-6.5); PLATELET COUNT 217 K/uL (130-400); RED CELL DISTRIBUTION WIDTH CV 14.4 % (11.5-14.5); RED CELL DISTRIBUTION WIDTH SD 49.6 fL (36.4-46.3)
[2018-01-28 17:14] LABS: ALBUMIN 3.5 gm/dl (3.4-5.0); ALKALINE PHOSPHATASE 79 U/L (45-117); ALT/SGPT 25 U/L (12-78); AST/SGOT 23 U/L (15-37); BLOOD UREA NITROGEN 28 mg/dl (7-18); CALCIUM 9.5 mg/dl (8.5-10.1); CARBON DIOXIDE 29 mmol/L (21-32); CHOLESTEROL 122 mg/dl (0-200); CREATININE 0.84 mg/dl (0.60-1.20); GLUCOSE 91 mg/dl (70-99); LDL CHOLESTEROL CALCULATED 53 mg/dl; POTASSIUM 4.4 mmol/L (3.5-5.1); SODIUM 140 mmol/L (136-145); TOTAL PROTEIN 7.4 gm/dl (6.4-8.2)
== END | disposition home or self-care (01) ==
LOC: C.LABBC 12:37
PROVIDERS: ATTEND Internal Medicine Geriatric Medicine
DX: I10 Essential (primary) hypertension (principal); K21.9 Gastro-esophageal reflux disease without esophagitis; E78.5 Hyperlipidemia, unspecified; R73.9 Hyperglycemia, unspecified; M19.90 Unspecified osteoarthritis, unspecified site; I65.29 Occlusion and stenosis of unspecified carotid artery; G47.30 Sleep apnea, unspecified

== ENCOUNTER → 2018-01-29 | Outpatient (CLI) | payer BC ==
--- NOTE | 2018-01-29 15:11 | MAMMOGRAPHY REPORT ---
UNILATERAL LEFT DIGITAL DIAGNOSTIC MAMMOGRAM TOMOSYNTHESIS WITH CAD: 01/29/2018 CLINICAL HISTORY: History of left breast cancer status post lumpectomy August 2017. The patient did no t have radiation therapy. The patient reports no current complaints. TECHNIQUE: Breast tomosynthesis in addition to standard 2D mammography was performed. Current study w as also evaluated with a Computer Aided Detection (CAD) system. Left CC and MLO 2D and tomosynthesis images and spot magnification left CC and ML views were obtained. COMPARISON: Comparison is made to exams dated: 08/25/2017 mammogram, 07/01/2017 mammogram, 06/25/2017 m ammogram, 06/17/2017 mammogram, 06/13/2016 mammogram, and 05/26/2015 mammogram - [facility]. BREAST COMPOSITION: There are scattered areas of fibroglandular density in left breast. FINDINGS: There are new postsurgical changes in the left 12:00 breast from prior lumpectomy, including new dens ity and architectural distortion at the lumpectomy bed. 2 surgical clips are also noted in the left axillary region on the MLO view, likely due to sentinel lymph node biopsy. Linear scar markers overl ie the left 12:00 and left upper outer breast. Spot magnification views of the lumpectomy bed demons trate no suspicious masses or clusters of microcalcifications. The remainder of the left breast is stable compared to prior exams, without suspicious masses, calcif ications, or areas of architectural distortion noted. Scattered benign-appearing calcifications are not significantly changed. A biopsy clip is again noted within the left upper inner quadrant. IMPRESSION: ACR-BI-RADS CATEGORY 3: PROBABLY BENIGN Expected postsurgical changes in the left breast status post lumpectomy, without mammographic evidenc e of malignancy in the left breast. Recommend bilateral diagnostic tomosynthesis mammograms in 6 mon ths, to reevaluate left breast posttreatment changes and for routine mammography of the right breast. The patient has been verbally notified of the results. Some breast cancers are not detected with mammography. A negative mammographic report should not paulette y biopsy if a clinically suggestive mass is present. Krupa Begum M.D. /:01/29/2018 11:10:42 Analysis Analyst: Michelle Turpin, [facility] letter sent: Personal History 3 BI-RADS Code: ACR-BI-RADS Category 3: Probably Benign
== END | disposition home or self-care (01) ==
LOC: C.MAMM 10:36
PROVIDERS: ATTEND Surgery
DX: Z85.3 Personal history of malignant neoplasm of breast (principal); Z08 Encounter for follow-up examination after completed treatment for malignant neoplasm

== ENCOUNTER 2024-05-08 11:39 | Inpatient (IN) ==
[2024-05-08 12:35] LABS: Basophils # (auto) 0.02 K/uL (0.00-0.20); Basophils % (auto) 0.4 %; Eosinophils # (auto) 0.43 K/uL (0.00-0.50); Eosinophils % (auto) 7.7 %; Hematocrit (blood only) 33.1 % (37.0-47.0); Hemoglobin 10.8 g/dl (12.0-16.0); Immature Granulocytes # (auto) 0.03 K/uL (0.01-0.20); Immature Granulocytes % (auto) 0.5 %; Lymphocytes # (auto) 1.31 K/uL (1.20-3.40); Lymphocytes % (auto) 23.6 %; Mean Corpuscular Hemoglobin 31.5 pg (25.0-34.0); Mean Corpuscular Hgb Conc 32.6 g/dL (32.0-36.0); Mean Corpuscular Volume 96.5 fL (80.0-100.0); Mean Platelet Volume 9.5 fL (9.4-12.4); Monocytes # (auto) 0.49 K/uL (0.11-0.59); Monocytes % (auto) 8.8 %; Neutrophils # (auto) 3.27 K/uL (1.40-6.50); Platelet Count 188 K/uL (130-400); RDW Coefficient of Variation 14.6 % (11.5-14.5); RDW Standard Deviation 51.2 fL (36.4-46.3); Red Blood Count 3.43 M/uL (4.20-5.40); White Blood Count 5.55 K/ul (4.8-10.8)
[2024-05-08] MEDS: diphenhydrAMINE 50 MG/ML VIAL IV STA (12:45)
[2024-05-08] MEDS: SODIUM CHLORIDE 0.9% 1,000 ML IV SCH (12:46)
[2024-05-08] MEDS: methylPREDNISolone 125 MG/2 ML VIAL IV STA (12:46)
[2024-05-08] MEDS: cefTRIAXone SODIUM 1,000 MG/50 ML BAG IV STA (12:46)
[2024-05-08 12:51] LABS: Alanine Aminotransferase 14 U/L (7-52); Albumin Globulin Ratio 1.4 (0.9-2); Albumin Level 3.7 gm/dl (3.4-5.0); Alkaline Phosphatase 81 U/L (34-104); Anion Gap 5 (3-11); Aspartate Aminotransferase 21 U/L (13-39); BUN Creatinine Ratio 20.2 (10-20); Bilirubin,Total 0.4 mg/dl (0.2-1.0); Blood Urea Nitrogen 19 mg/dl (6-23); Calcium 9.1 mg/dl (8.6-10.3); Carbon Dioxide 30 mmol/L (21-32); Chloride 107 mmol/L (98-107); Globulin 2.7 gm/dl (2.5-4.0); Glucose 94 mg/dl (70-99(Fasting)); Sodium 142 mmol/L (136-145); Total Protein 6.4 gm/dl (6.0-8.3)
[2024-05-08] MEDS: CIPROFLOXACIN HCL 0.3% OP SOLN 2.5 ML BTL OPR ONE (13:02)
[2024-05-08 13:05] LABS: Partial Thromboplastin Ratio 0.9; Partial Thromboplastin Time 25 Seconds (21-31); Prothrombin Time 10.6 Seconds (9.0-12.0)
[2024-05-08] MEDS: OPTIRAY 320 125ml IV ONE (13:11)
--- NOTE | 2024-05-08 13:45 | CT Scan Report ---
CT OF THE HEAD WITHOUT CONTRAST CLINICAL HISTORY: neuro deficit, acute stroke suspected COMPARISON STUDY: Head CT November 19, 2023. TECHNIQUE: Helical axial images of the head were obtained without IV contrast. Automated exposure con trol was utilized for the study. A dose lowering technique was utilized adhering to the principles o f ALARA. FINDINGS: No acute intracranial hemorrhage, midline shift or mass effect is present. White matter hyp odensities are unchanged and favor small vessel disease. The ventricular system is unremarkable. The basal cisterns are patent. No extra-axial collections are present. There are no findings to suggest a cute dural sinus thrombosis or acute territorial infarct. No significant calvarial abnormalities are present. Visualized portions of the sinuses and mastoid air cells are clear. IMPRESSION: No acute intracranial findings. ACT 112: Negative or not required by law. Electronically signed by: Travis Salgado M.D. 05/08/2024 1:44 PM
[2024-05-08 13:52] LABS: Appearance Urine Clear (Clear); Bacteria Urine Automated None Seen (None Seen); Bilirubin Urine Negative (Negative); Blood Urine Trace (Negative); Cast Urine Automated 0-2 /lpf (0-2); Color Urine Yellow; Epithelial Cell Urine Auto 0-2 /hpf (0-2); Glucose Urine UA Negative (Negative); Ketones Urine Negative (Negative); Leukocyte Esterase Urine Negative (Negative); Nitrite Urine Negative (Negative); Protein Urine Negative (Negative); Specific Gravity Urine 1.013 (1.000-1.030); Urobilinogen Urine Negative (Negative); WBC Urine Automated 0-5 /hpf (0-5); pH Urine 6.5 (4.5-7.5)
--- NOTE | 2024-05-08 13:58 | CT Scan Report ---
EXAM: CT Angiography Head With Intravenous Contrast INDICATION: Strokelike symptoms. TECHNIQUE: Axial computed tomographic angiography images of the head with intravenous contrast. Sagittal and coronal reformatted images were created and reviewed. This CT exam was performed using one or more of the following dose reduction techniques: automated exposure control, adjustment of the mA and/or kV according to patient size, and/or use of iterative reconstruction technique. MIP reconstructed images were created and reviewed. CONTRAST: 119ml of Optiray 320 was administered intravenously. COMPARISON: No relevant prior studies available. FINDINGS: Right internal carotid artery: Mild calcific plaque. Intracranial segment is patent with no significant stenosis. No aneurysm. Right anterior cerebral artery: No abnormality noted. No occlusion or significant stenosis. No aneurysm. Right middle cerebral artery: No abnormality noted. No occlusion or significant stenosis. No aneurysm. Right posterior cerebral artery: No abnormality noted. No occlusion or significant stenosis. No aneurysm. Right vertebral artery: No significant abnormality noted. Left internal carotid artery: Mild calcific plaque. Intracranial segment is patent with no significant stenosis. No aneurysm. Left anterior cerebral artery: No abnormality noted. No occlusion or significant stenosis. No aneurysm. Left middle cerebral artery: No abnormality noted. No occlusion or significant stenosis. No aneurysm. Left posterior cerebral artery: No abnormality noted. No occlusion or significant stenosis. No aneurysm. Left vertebral artery: No significant abnormality noted. Basilar artery: No abnormality noted. No occlusion or significant stenosis. No aneurysm. Other vasculature: Patent dural venous sinuses. IMPRESSION: No acute intra graphic abnormality in the brain. ACT 112: Negative or not required by law. Electronically signed by Jacquelyn Torres 05-08-2024 13:57 PM
--- NOTE | 2024-05-08 14:05 | CT Scan Report ---
EXAM: CT Angiography Neck With Intravenous Contrast INDICATION: H strokelike symptoms. TECHNIQUE: Routine carotid CT angiography protocol was performed with intravenous contrast. NASCET criteria using the distal ICAs for comparison were used for evaluation of stenoses. Sagittal and coronal reformatted images were created and reviewed. This CT exam was performed using one or more of the following dose reduction techniques: automated exposure control, adjustment of the mA and/or kV according to patient size, and/or use of iterative reconstruction technique. MIP reconstructed images were created and reviewed. CONTRAST: 119ml of Optiray 320 was administered intravenously. COMPARISON: None. FINDINGS: VASCULATURE: Right common carotid artery: No abnormality noted. No occlusion or significant stenosis. No dissection. Right internal carotid artery: Mild atherosclerotic calcification in the bulb. Extracranial segment is patent with no occlusion or significant stenosis. No dissection. Right external carotid artery: No abnormality noted. No occlusion. Right vertebral artery: No abnormality noted. No occlusion or significant stenosis. No dissection. Left common carotid artery: No abnormality noted. No occlusion or significant stenosis. No dissection. Left internal carotid artery: Mild atherosclerotic calcification in the bulb. Extracranial segment is patent with no occlusion or significant stenosis. No dissection. Left external carotid artery: No abnormality noted. No occlusion. Left vertebral artery: Very slow flow noted in the left vertebral artery. Brachiocephalic and subclavian arteries: There is severe atherosclerosis and up to 70% narrowing of the origin of the left subclavian artery. NECK: Bones/joints: Diffuse degenerative changes. No acute abnormality noted. Soft tissues: No abnormality noted. Thyroid: There is a 2.2 cm right thyroid nodule. Lung apices: Fibrotic changes in the lung apices. CAROTID STENOSIS REFERENCE USING NASCET CRITERIA: % ICA stenosis = (1 - narrowest ICA diameter/diameter of distal cervical ICA) x 100. Mild - <50% stenosis. Moderate - 50-69% stenosis. Severe - 70-94% stenosis. Near occlusion - 95-99% stenosis. Occluded - 100% stenosis. IMPRESSION: 1. Slow flow in the left cervical vertebral artery. 2. Atherosclerotic calcification of the internal carotid bulbs with less than 20% stenosis. 3. 2.2 cm right thyroid nodule. Nonemergent ultrasound recommended unless already known. ACT 112: Negative or not required by law. Electronically signed by Jacquelyn Torres 05-08-2024 2:05 PM
--- NOTE | 2024-05-08 17:24 | History & Physical Report ---
Date of Service May 08, 2024 Assessment & Plan (1) Stroke-like symptoms: Plan: Presenting w/ L sided symptoms including leaning to the left side, dragging her left lower extremity, ? Left-sided facial droop x < 24hr; No neuro deficits on exam, experiencing dizziness when walking still. - Admit med/tele - Neurochecks + NIHSS - Dysphagia screen x 1 - NPO until passed then heart healthy - Head CT without acute intracranial findings - Head CTA without acute intragraphic abnormalities in the brain; Neck CTA slow flow in left cervical vertebral artery, atherosclerotic calcification in the internal carotid bulbs with less than 20% stenosis, 2.2 cm R thyroid nodule (nonemergent ultrasound recommended) - 2D Echo Bubble pending - A1c 06/2023 @ 5.9%, pending repeat - Lipids pending - EKG NSR, 1st degree block, rate 70bpm - On Atorvastatin 20mg currently - ASA 81mg at home currently - took 1 dose today - MRI pending - Neurology consult not placed at this time; pending MRI (2) Preseptal cellulitis of right eye: Plan: Right eye; able to open her eye w/ c/o blurry vision in that eye; Eyeball itself not injected or appearing abnormal. - CT w/o concerning findings of the area - Diagnosed with facial cellulitis 04/02 managed with Keflex and prednisone at that time - Evaluated again 04/09with primary care provider for improvement but continuation of symptoms- valacyclovir was added at that time - Ophthalmology visit 04/21- diagnosed with periorbital cellulitis and eczematous dermatitis; treating with ointment (neomycin/polymyxin B/dexamethasone 3.5 -[id number])- / ribbon to right eyelid area 2 times a day - Continue to manage with Ceftriaxone while inpatient + ointment to eye Plan PAD- ASA + statin therapy HTN- Telmaisartan 20 OP- Fosamax (70 mg weekly, taken May 03) GERD- Omeprazole Depression - Escitalopram Dispo: Admit Diet: Heart healthy, vegetarian VTE Prophylaxis: Lovenox following MRI clearance Code: Full Admission and Anticipated Discharge Date Admission Date: 05/08/2024 History of Present Illness Chief Complaint: Neuro deficits Primary Care Provider: Lala Webber DO 88-year-old female presenting to ED with daughter for new onset dizziness and weakness with associated leaning to left side, left foot dragging, and left- sided facial droop starting at 0910. ED course: CBC RBC 3.43, H&H 10.8/33.1, RDW 51.2; PT/INR WNL; CMP BUN/creatinine ratio 20.2, UA with trace blood, no signs of infection; head CT without acute intracranial findings, head CTA without acute intragraphic abnormalities in the brain, neck CTA slow flow in left cervical vertebral artery, atherosclerotic calcification in the internal carotid bulbs with less than 20% stenosis, 2.2 cm R thyroid nodule (nonemergent ultrasound); EKG NSR, first-degree AV block, rate around 70.; Provided with Rocephin 1 g, diphenhydramine, methylprednisolone, 1 L NSS, and ciprofloxacin eyedrops in ED. Patient is an 88-year-old female with PMHx CAD, HTN, depression with anxiety, dyslipidemia, history of SCC, PAD, and osteoporosis presenting for new onset neurodeficits. Patient's daughters are present in room at time of visit and helped provide a history. Patient awoke the morning of arrival and walked to the restroom by herself, but noted that she felt she was leaning to the left a lot. Around 20 minutes later the patient's daughter helped her out of bed again and continue to notice that she was leaning to the left side. When walking, she also noted that her left foot was dragging behind. Patient does use a walker to ambulate at baseline, but was still having these abnormalities with a walker. Daughter states she may have been having associated left-sided facial droop, but was unsure. Patient is also having recurrence of preseptal/periorbital cellulitis of the right eye, no recent trauma to area. Patient states that she felt dizzy when walking, seeming that she was off balance. No falls or syncopal episodes. Only other complaint is mild discomfort of the right eye and associated sore throat starting this morning when she awoke. Denying headache, additional vision changes, chest pain, shortness of breath, palpitations, abdominal pain, N/V/D/C, numbness or tingling. Patient took all a.m. medications. Has not had anything like this happen before. Please see Dr. White's attestation for adjustments/additions to treatment plan. Allergies Allergy/AdvReac Type Severity Reaction Status Date / Time iodine Allergy Intermediate IV and Verified 05/08/24 14:47 topical iodine- rash adhesive Allergy Mild skin Verified 05/08/24 14:47 irritation Sulfa (Sulfonamide Allergy Mild rash Verified 05/08/24 14:47 Antibiotics) Cipro Allergy Unknown UNKNOWN Verified 07/16/17 11:06 shellfish derived Allergy Unknown Avoids due Unverified 05/08/24 14:47 to Iodine allergy ciprofloxacin AdvReac Intermediate GI upset Verified 05/08/24 14:47 codeine AdvReac Intermediate felt "ill Verified 05/08/24 14:47 and dizzy" levofloxacin AdvReac Intermediate arm pain Verified 05/08/24 14:47 morphine AdvReac Intermediate Gastrointestinal Verified 05/08/24 14:47 Upset sertraline AdvReac Intermediate Diarrhea Verified 05/08/24 14:47 Home Medications Medication Instructions Recorded Confirmed Type loratadine 10 mg capsule 10 mg PO DAILY SEASONAL ALLERGIES 03/10/19 05/08/24 History cholecalciferol (vitamin D3) 25 2,000 units PO QPM 01/04/20 05/08/24 History mcg (1,000 unit) tablet aspirin 81 mg tablet,delayed 81 mg PO QAM 11/20/22 05/08/24 History release simethicone 125 mg capsule (Gas-X 125 mg PO DAILY PRN 11/20/22 05/08/24 History Extra Strength) Gastrointestinal Spasms Or Cramping acetaminophen 500 mg tablet 1,000 mg PO Q6H PRN Pain 12/04/22 05/08/24 History (Tylenol Extra Strength) docusate sodium 100 mg capsule 100 mg PO DAILY PRN Constipation 12/12/22 05/08/24 History alendronate 70 mg tablet 70 mg PO WK #12 tabs 09/11/23 05/08/24 Rx meloxicam 7.5 mg tablet 7.5 mg PO DAILY #90 tabs 11/06/23 05/08/24 Rx atorvastatin 20 mg tablet 20 mg PO HS #90 tabs 12/04/23 05/08/24 Rx escitalopram oxalate 20 mg tablet 20 mg PO DAILY #90 tabs 12/16/23 05/08/24 Rx (Lexapro) omeprazole 40 mg capsule,delayed 40 mg PO DAILY #90 caps 01/07/24 05/08/24 Rx release telmisartan 20 mg tablet (Micardis) 20 mg PO QAM #90 tabs 02/02/24 05/08/24 Rx Past Med/Surg History Problem List (Updated 05/09/24 @ 10:55 by Tavon Daniels MD) Osteoporosis Preseptal cellulitis of right eye Stroke-like symptoms Hematuria Coccygeal pain Herpes zoster Unequal blood pressure in upper extremities Osteoarthritis of left wrist Carotid stenosis Osteoporosis, unspecified Sensorineural hearing loss (SNHL) of both ears Subclavian arterial stenosis Peripheral arterial disease Osteoarthritis of left shoulder Abdominal pain (Acute) GERD (gastroesophageal reflux disease) History of invasive malignant neoplasm of breast Osteoarthritis Severe sleep apnea History of SCC (squamous cell carcinoma) of skin History of tobacco use Dyslipidemia Depression with anxiety Coronary atherosclerosis of [place] coronary vessel Constipation Allergic rhinitis Weight loss, non-intentional HTN (hypertension) Medical History (Updated 05/09/24 @ 10:55 by Tavon Daniels MD) Memory deficit PT STATES SHE HAS TROUBLE WITH DATES AND REMEMBERING THINGS History of skin cancer History of bilateral breast cancer LUMPECTOMY - Osteoarthritis of left shoulder Peripheral arterial disease Arthritis Diverticulosis of colon (without mention of hemorrhage) History of basal cell carcinoma Irritable bowel syndrome Prolapse of vaginal sharp Rectocele Solitary thyroid nodule Uterine prolapse Prolapsed bladder GERD (gastroesophageal reflux disease) controlled Thyroid nodule Anxiety Sleep apnea cannot tolerate CPAP HLD (hyperlipidemia) Surgical History Status post Mohs surgery History of surgery on extremity L LEG (SKIN CANCER SURGERY) History of total replacement of right shoulder joint Hx of shoulder surgery RT SHOULDER REPLACEMENT History of colonoscopy History of esophagogastroduodenoscopy (EGD) History of appendectomy Hx of lumpectomy RIGHT/LEFT LUMPECTOMY History of tooth extraction History of tonsillectomy H/O eye surgery BCC EXCISION (LEFT EYELID) History of cataract surgery RT/LEFT H/O carotid endarterectomy LEFT (2002) History of cardiac cath 2009= NO STENTS - PT CCANNOT REMEMBER WHERE DONE Hx of cataract surgery Hx of shoulder surgery Hx of breast biopsy Family History Brother Alzheimer disease Mother Heart disease Hypertension Myocardial infarction Father Kidney stone Denies family history of Ovarian cancer Prostate cancer Breast cancer Lung cancer Colorectal cancer Social History Smoking Status: Former smoker Tobacco Type: Cigarettes Age Started Using Tobacco: 15; Age Quit Using Tobacco: 39; packs per day: 1; Second Hand Exposure: No; Do You Dip or Chew Tobacco: No; Hx Alcohol Use: No Hx Substance Use: No Preferred Language: Greek Communication Ability: Effective Visual Impairment: No Limitations Hearing Ability: Use of Hearing Aid Reverser Required: No Beliefs That Will Affect Care: None marital status: / Current Living Situation: Family Current Living Situation Comment: daugther and son in law current occupational status: retired How many Children do You have: 4 Other Information That Helps Us Care for You: No Feels Safe at Home: Yes Safety Concerns: Feels Safe At This Time Childhood Exposure to Second-Hand Smoke: No Diet: regular caffeine: Yes (iced tea and coffee sometimes ) Dental Care, Regularly: Yes Physical Activity Frequency: Does not Exercise Seatbelt Use: always Sunscreen Use: No (not in sun) Assistive Devices: Cane, Hearing Aid - Bilateral, Lift Chair, Walker and Wheelchair Assistive Devices Comment: shower chair, medical alert button Review of Systems 2 Review of Systems: All systems reviewed & are unremarkable except as noted in Subjective Physical Exam 2 Physical Exam: General: No acute distress Skin: Warm and dry Head: Normocephalic, atraumatic Eyes: Eyes difficult to evaluate 2/2 preseptal cellulitis R side; R eye with medial corner erythema and mild edema, no crusting, patient able to open eye but not for long, conjunctiva appearing clear. L eye PERRL, conjunctiva clear, sclera non-icteric; EOM intact L eye, pt unable to open R eye long enough to evaluate ENT: External ear and ear canal without swelling; nose atraumatic; good dentition Neck: Supple, no LAD Cardio: RRR, no M/G/R, S1 and S2 normal Resp: nbNo respiratory distress, Lungs CTA in all lobes bilaterally, no wheezes, rales, or rhonchi Abdomen: Soft, symmetric, nontender; No distention MSK: No deformities; pulses palpable and equal; no edema. Neuro: Awake, alert II- PERRL (See eyes above) III, IV, - EOMs intact, no deviation, no nystagmus (See eyes above) V- Normal sensation in all locations VII- No asymmetry, no nasolabial fold flattening VIII- Normal hearing to speech IX, X- Normal palatal elevation, no ulnar deviation XI- 4/5 head turn + shoulder shrug bilaterally XII- Midline tongue protrusion Motor: 4/5 strength throughout BUE/BLE Sensory: Normal sensation throughout, no hemineglect, Romberg absent Coordination: Normal [id number], no tremor Gait: Unable to asses; states "dizzy" when walking Psych: Appropriate mood and affect 2 daughters present in room at time of v isit. Results & Data Results & Data Vital Signs (Past 12 Hours) Vital Signs Temp Pulse Pulse Resp BP BP Pulse Ox 05/08/24 16:06 65 05/08/24 16:04 66 29 H 190/91 H 93 05/08/24 14:30 64 16 182/89 H 97 05/08/24 12:46 69 05/08/24 12:17 66 20 131/95 94 05/08/24 11:44 36.9 C 84 16 178/84 H 98 O2 Del Method 05/08/24 16:06 05/08/24 16:04 Room Air 05/08/24 14:30 Room Air 05/08/24 12:46 05/08/24 12:17 Room Air 05/08/24 11:44 Room Air Laboratory Results 05/08/24 05/08/24 05/08/24 13:30 12:19 12:08 WBC 5.55 RBC 3.43 L Hgb 10.8 L Hct 33.1 L MCV 96.5 MCH 31.5 MCHC 32.6 RDW Std Deviation 51.2 H RDW Coeff of [place] 14.6 H Plt Count 188 MPV 9.5 Immature Gran % (Auto) 0.5 Neut % (Auto) 59.0 Lymph % (Auto) 23.6 [place] % (Auto) 8.8 Eos % (Auto) 7.7 Baso % (Auto) 0.4 Neut # (Auto) 3.27 Lymph # (Auto) 1.31 [place] # (Auto) 0.49 Eos # (Auto) 0.43 Baso # (Auto) 0.02 Immature Gran # (Auto) 0.03 PT 10.6 INR 1.0 APTT 25 PTT Ratio 0.9 Sodium 142 Potassium 4.0 Chloride 107 Carbon Dioxide 30 Anion Gap 5 BUN 19 Creatinine 0.94 Est Cr Clr Drug Dosing Not Reportable eGFR 58.00 BUN/Creatinine Ratio 20.2 H Glucose 94 POC Glucose 121 H Calcium 9.1 Magnesium 2.0 Total Bilirubin 0.4 AST 21 ALT 14 Alkaline Phosphatase 81 Troponin I High Sens 6.0 Total Protein 6.4 Albumin 3.7 Globulin 2.7 Albumin/Globulin Ratio 1.4 Urine Color Yellow Urine Appearance Clear Urine pH 6.5 Ur Specific [place] 1.013 Urine Protein Negative Urine Glucose (UA) Negative Urine Ketones Negative Urine Blood Trace H Urine Nitrite Negative Urine Bilirubin Negative Urine Urobilinogen Negative Ur Leukocyte Esterase Negative Urine WBC (Auto) 0-5 Urine RBC (Auto) 3-5 H U Hyaline Cast (Auto) 0-2 U Epithel Cells (Auto) 0-2 Urine Bacteria (Auto) None Seen Diagnostic Findings Head CT 05/08/24 12:10 CT OF THE HEAD WITHOUT CONTRAST CLINICAL HISTORY: neuro deficit, acute stroke suspected COMPARISON STUDY: Head CT November 19, 2023. TECHNIQUE: Helical axial images of the head were obtained without IV contrast. Automated exposure control was utilized for the study. A dose lowering technique was utilized adhering to the principles of ALARA. FINDINGS: No acute intracranial hemorrhage, midline shift or mass effect is present. White matter hypodensities are unchanged and favor small vessel disease. The ventricular system is unremarkable. The basal cisterns are patent. No extra-axial collections are present. There are no findings to suggest acute dural sinus thrombosis or acute territorial infarct. No significant calvarial abnormalities are present. Visualized portions of the sinuses and mastoid air cells are clear. IMPRESSION: No acute intracranial findings. ACT 112: Negative or not required by law. Electronically signed by: Travis Salgado M.D. 05/08/2024 1:44 PM Head CTA 05/08/24 12:10 EXAM: CT Angiography Head With Intravenous Contrast INDICATION: Strokelike symptoms. TECHNIQUE: Axial computed tomographic angiography images of the head with intravenous contrast. Sagittal and coronal reformatted images were created and reviewed. This CT exam was performed using one or more of the following dose reduction techniques: automated exposure control, adjustment of the mA and/or kV according to patient size, and/or use of iterative reconstruction technique. MIP reconstructed images were created and reviewed. CONTRAST: 119ml of Optiray 320 was administered intravenously. COMPARISON: No relevant prior studies available. FINDINGS: Right internal carotid artery: Mild calcific plaque. Intracranial segment is patent with no significant stenosis. No aneurysm. Right anterior cerebral artery: No abnormality noted. No occlusion or significant stenosis. No aneurysm. Right middle cerebral artery: No abnormality noted. No occlusion or significant stenosis. No aneurysm. Right posterior cerebral artery: No abnormality noted. No occlusion or significant stenosis. No aneurysm. Right vertebral artery: No significant abnormality noted. Left internal carotid artery: Mild calcific plaque. Intracranial segment is patent with no significant stenosis. No aneurysm. Left anterior cerebral artery: No abnormality noted. No occlusion or significant stenosis. No aneurysm. Left middle cerebral artery: No abnormality noted. No occlusion or significant stenosis. No aneurysm. Left posterior cerebral artery: No abnormality noted. No occlusion or significant stenosis. No aneurysm. Left vertebral artery: No significant abnormality noted. Basilar artery: No abnormality noted. No occlusion or significant stenosis. No aneurysm. Other vasculature: Patent dural venous sinuses. IMPRESSION: No acute intra graphic abnormality in the brain. ACT 112: Negative or not required by law. Electronically signed by Jacquelyn Torres 05-08-2024 13:57 PM Neck CTA 05/08/24 12:10 EXAM: CT Angiography Neck With Intravenous Contrast INDICATION: H strokelike symptoms. TECHNIQUE: Routine carotid CT angiography protocol was performed with intravenous contrast. NASCET criteria using the distal ICAs for comparison were used for evaluation of stenoses. Sagittal and coronal reformatted images were created and reviewed. This CT exam was performed using one or more of the following dose reduction techniques: automated exposure control, adjustment of the mA and/or kV according to patient size, and/or use of iterative reconstruction technique. MIP reconstructed images were created and reviewed. CONTRAST: 119ml of Optiray 320 was administered intravenously. COMPARISON: None. FINDINGS: VASCULATURE: Right common carotid artery: No abnormality noted. No occlusion or significant stenosis. No dissection. Right internal carotid artery: Mild atherosclerotic calcification in the bulb. Extracranial segment is patent with no occlusion or significant stenosis. No dissection. Right external carotid artery: No abnormality noted. No occlusion. Right vertebral artery: No abnormality noted. No occlusion or significant stenosis. No dissection. Left common carotid artery: No abnormality noted. No occlusion or significant stenosis. No dissection. Left internal carotid artery: Mild atherosclerotic calcification in the bulb. Extracranial segment is patent with no occlusion or significant stenosis. No dissection. Left external carotid artery: No abnormality noted. No occlusion. Left vertebral artery: Very slow flow noted in the left vertebral artery. Brachiocephalic and subclavian arteries: There is severe atherosclerosis and up to 70% narrowing of the origin of the left subclavian artery. NECK: Bones/joints: Diffuse degenerative changes. No acute abnormality noted. Soft tissues: No abnormality noted. Thyroid: There is a 2.2 cm right thyroid nodule. Lung apices: Fibrotic changes in the lung apices. CAROTID STENOSIS REFERENCE USING NASCET CRITERIA: % ICA stenosis = (1 - narrowest ICA diameter/diameter of distal cervical ICA) x 100. Mild - <50% stenosis. Moderate - 50-69% stenosis. Severe - 70-94% stenosis. Near occlusion - 95-99% stenosis. Occluded - 100% stenosis. IMPRESSION: 1. Slow flow in the left cervical vertebral artery. 2. Atherosclerotic calcification of the internal carotid bulbs with less than 20% stenosis. 3. 2.2 cm right thyroid nodule. Nonemergent ultrasound recommended unless already known. ACT 112: Negative or not required by law. Electronically signed by Jacquelyn Torres 05-08-2024 2:05 PM Code Status & VTE Plan Code Status Full Supervising Physician Co-Signing Physician Notes I personally saw and examined the patient. I independently reviewed the labs, EKG, imaging, problem list, medication list, past medical history and family history. I verified all melendez points and agree with Shawn Nichols PA-C with the following exceptions and/or additions: 88 year old female presents to the ER with right eye erythema. Recent preseptal cellulitis resolved with Keflex. Starting again a few days ago and using Maxitrol which she was previously given without any reaction. Today leaning to left with left lower extremity weakness O/E HS RRR, no murmurs, Chest CTAB, Abdo SNT, no medial abduction of right eye causing diplopia, Left leg co-ordination reduced and left hip flexion 4/5 otherwise 5/5 throughout without pronator drift A/P Stroke-like symptoms - left lower extremity loss of co-ordination and weakness, loss of medial abduction of right eye, stroke order set Preseptal cellulitis - concerning findings of diplopia on exam however no septal cellulitis seen on CT and with associated LLE co-ordination and weakness issues this would favor stroke over septal cellulitis as cause of her symptoms, IV ceftriaxone PG Care Time/CCT Total # of Minutes Spent Total Time Spent with Patient: Total time spent is greater than 50% in coordination of care (as documented) at patient's floor/unit and/or counseling patient: Coding Level of Care Code 07415 INT INP/OBS CARE 3/75MIN Diagnoses Stroke-like symptoms R29.90 Preseptal cellulitis of right eye L03.213 Time Spent (min) 75
--- NOTE | 2024-05-08 19:19 | Emergency Department Note ---
Impression & Plan Stroke-like symptoms, Ambulatory dysfunction ED Provider Note CHIEF COMPLAINT: Left-sided facial droop, leaning towards the left, right eye infection HISTORY OF PRESENT ILLNESS: This 88-year-old female patient with past medical history of herpes zoster, carotid stenosis, hearing loss, subclavian arterial stenosis, peripheral arterial disease, GERD, breast cancer, osteoarthritis, sleep apnea, squamous cell carcinoma, dyslipidemia, anxiety, CAD, hypertension presents to the emergency department with complaints of left-sided facial droop, recurrent right eye cellulitis and leaning towards the left. Her daughter states that she has had difficulty with ambulation. Exact onset of symptoms is unclear but seems to be sometime overnight while sleeping. REVIEW OF SYSTEMS: A review of systems was performed with positives and pertinent negatives listed in the history of present illness. 10 systems were reviewed and are otherwise negative. ALLERGIES: see below MEDICATIONS: see below PMH: see below SOCIAL HISTORY: see below DDx: Stroke, cellulitis with facial swelling, UTI, electrolyte abnormality, intracranial hemorrhage, intracranial mass, seizure, gait instability among others. PHYSICAL EXAM: Vital signs reviewed. General: Elderly, chronically ill-appearing 88-year-old female, in no significant distress. HEENT: No scleral icterus, PERRLA, neck supple. Right upper lid with erythema and swelling. Warm to touch. No obvious abscess or significant deformity. No drainage from the right eye. Atraumatic. Cardiovascular: Regular rate and rhythm, no extra sounds. Pulmonary: Clear to auscultation bilaterally, normal work of breathing. Abdomen: Soft, nontender, nondistended, positive bowel sounds. Musculoskeletal: Atraumatic, no peripheral edema. Neurologic: Patient awake alert and oriented x 3, speech is clear. Patient follows commands, cranial nerves appear to be intact with a slight left-sided facial droop at the nasolabial fold. On ambulatory trial, patient was leaning towards the left per nursing staff. Equal strength in all 4 extremities at this time, negative pronator drift. Intact [id number] Skin: Warm, dry, no rash EMERGENCY DEPARTMENT COURSE/MDM: This patient was evaluated and appeared to be in no significant distress. The exact onset of patient's symptoms is unclear the right periorbital cellulitis and residual swelling/irritation has created some difficulty in assessing symmetry. CT angiogram of the head was performed and reveals slow flow through the left cervical vertebral artery. Given the patient's symptoms of left-sided facial droop and leaning towards the left, CT angiogram of the head and neck was performed and reveals slow flow through the left cervical vertebral artery. EKG reveals a sinus rhythm with a first-degree AV block, no dysrhythmia. Patient was felt not to be candidate for urgent intervention including thrombolytics. She will be evaluated with hospitalist service for further evaluation and management. I did explain my findings to the patient and her family at the bedside. MONITORING: An order for cardiac monitoring was placed and the patient is noted to be in a sinus rhythm with first-degree AV block at 66 beats per minute. RADIOLOGY: CT of the head to my interpretation reveals no evidence of acute intracranial abnormality. Otherwise defer to radiology's read below. CT angiogram of the head and neck reveals slow flow through the left cervical vertebral artery, otherwise see further details below. EKG: To my interpretation reveals a sinus rhythm with a first-degree AV block at 70 bpm. QTc is 436. Normal ST segments. No PVC, no PAC. DISPOSITION: Admission Past Med/Surg History Problem List (Updated 05/14/24 @ 06:55 by Ashley Callahan MD) Ambulatory dysfunction (Acute) Stroke-like symptoms (Acute) 3rd nerve palsy, partial Acute ischemic stroke Ataxia Osteoporosis Preseptal cellulitis of right eye Stroke-like symptoms Hematuria Coccygeal pain Herpes zoster Unequal blood pressure in upper extremities Osteoarthritis of left wrist Carotid stenosis Osteoporosis, unspecified Sensorineural hearing loss (SNHL) of both ears Subclavian arterial stenosis Peripheral arterial disease Osteoarthritis of left shoulder Abdominal pain (Acute) GERD (gastroesophageal reflux disease) History of invasive malignant neoplasm of breast Osteoarthritis Severe sleep apnea History of SCC (squamous cell carcinoma) of skin History of tobacco use Dyslipidemia Depression with anxiety Coronary atherosclerosis of [place] coronary vessel Constipation Allergic rhinitis Weight loss, non-intentional HTN (hypertension) Medical History (Updated 05/14/24 @ 06:55 by Ashley Callahan MD) Memory deficit PT STATES SHE HAS TROUBLE WITH DATES AND REMEMBERING THINGS History of skin cancer History of bilateral breast cancer LUMPECTOMY - Osteoarthritis of left shoulder Peripheral arterial disease Arthritis Diverticulosis of colon (without mention of hemorrhage) History of basal cell carcinoma Irritable bowel syndrome Prolapse of vaginal sharp Rectocele Solitary thyroid nodule Uterine prolapse Prolapsed bladder GERD (gastroesophageal reflux disease) controlled Thyroid nodule Anxiety Sleep apnea cannot tolerate CPAP HLD (hyperlipidemia) Surgical History Status post Mohs surgery History of surgery on extremity L LEG (SKIN CANCER SURGERY) History of total replacement of right shoulder joint Hx of shoulder surgery RT SHOULDER REPLACEMENT History of colonoscopy History of esophagogastroduodenoscopy (EGD) History of appendectomy Hx of lumpectomy RIGHT/LEFT LUMPECTOMY History of tooth extraction History of tonsillectomy H/O eye surgery BCC EXCISION (LEFT EYELID) History of cataract surgery RT/LEFT H/O carotid endarterectomy LEFT (2002) History of cardiac cath 2010= NO STENTS - PT CCANNOT REMEMBER WHERE DONE Hx of cataract surgery Hx of shoulder surgery Hx of breast biopsy Family History Brother Alzheimer disease Mother Heart disease Hypertension Myocardial infarction Father Kidney stone Denies family history of Ovarian cancer Prostate cancer Breast cancer Lung cancer Colorectal cancer Social History Smoking Status: Former smoker Tobacco Type: Cigarettes Age Started Using Tobacco: 15; Age Quit Using Tobacco: 39; packs per day: 1; Second Hand Exposure: No; Do You Dip or Chew Tobacco: No; Hx Alcohol Use: No Hx Substance Use: No Preferred Language: Ukrainian Communication Ability: Effective Visual Impairment: No Limitations Hearing Ability: Use of Hearing Aid Biogeographer Required: No Beliefs That Will Affect Care: None marital status: / Current Living Situation: Family Current Living Situation Comment: daugther and son in law current occupational status: 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 How many Children do You have: 4 Feels Safe at Home: Yes Childhood Exposure to Second-Hand Smoke: No Diet: regular caffeine: Yes (iced tea and coffee sometimes ) Dental Care, Regularly: Yes Physical Activity Frequency: Does not Exercise Seatbelt Use: always Sunscreen Use: No (not in sun) Assistive Devices: Cane and Walker Allergies Allergies Allergy/AdvReac Type Severity Reaction Status Date / Time iodine Allergy Intermediate IV and Verified 05/08/24 14:47 topical iodine- rash adhesive Allergy Mild skin Verified 05/08/24 14:47 irritation Sulfa (Sulfonamide Allergy Mild rash Verified 05/08/24 14:47 Antibiotics) Cipro Allergy Unknown UNKNOWN Verified 07/16/17 11:06 shellfish derived Allergy Unknown Avoids due Unverified 05/08/24 14:47 to Iodine allergy ciprofloxacin AdvReac Intermediate GI upset Verified 05/08/24 14:47 codeine AdvReac Intermediate felt "ill Verified 05/08/24 14:47 and dizzy" levofloxacin AdvReac Intermediate arm pain Verified 05/08/24 14:47 morphine AdvReac Intermediate Gastrointestinal Verified 05/08/24 14:47 Upset sertraline AdvReac Intermediate Diarrhea Verified 05/08/24 14:47 Home Meds Home Medications Medication Instructions Recorded Confirmed loratadine 10 mg capsule 10 mg PO DAILY SEASONAL ALLERGIES 03/10/19 05/08/24 cholecalciferol (vitamin D3) 25 2,000 units PO QPM 01/04/20 05/08/24 mcg (1,000 unit) tablet simethicone 125 mg capsule (Gas-X 125 mg PO DAILY PRN 11/20/22 05/08/24 Extra Strength) Gastrointestinal Spasms Or Cramping acetaminophen 500 mg tablet 1,000 mg PO Q6H PRN Pain 12/04/22 05/08/24 (Tylenol Extra Strength) docusate sodium 100 mg capsule 100 mg PO DAILY PRN Constipation 12/12/22 05/08/24 Previous Rx's Medication Instructions Recorded alendronate 70 mg tablet 70 mg PO WK #12 tabs 09/11/23 atorvastatin 20 mg tablet 20 mg PO HS #90 tabs 12/04/23 telmisartan 20 mg tablet (Micardis) 20 mg PO QAM #90 tabs 02/02/24 clopidogrel 75 mg tablet 75 mg PO QAM #30 tabs 05/12/24 escitalopram oxalate 10 mg tablet 10 mg PO DAILY #30 tabs 05/12/24 neomycin 3.5 mg/g-polymyxin B 1 applic OPR BID 1 week #3.5 grams 05/12/24 10,000 unit/g-dexameth 0.1 % eye oint pantoprazole 40 mg tablet,delayed 40 mg PO DAILY #30 tabs 05/12/24 release Results & Data (ED) Vital Signs Vital Signs - 24 hr 05/08/24 11:44 05/08/24 12:17 05/08/24 12:46 Temperature 36.9 C Temperature Source Temporal Artery Scan Pulse Rate 84 69 Pulse Rate [Apical] 66 Pulse Rhythm [Apical] Regular Pulse Strength [Apical] Normal Respiratory Rate 16 20 Respiratory Effort / Characteristics Non-Labored Spontaneous Non-Labored Spontaneous Respiratory Depth Normal Normal Respiratory Pattern Regular Blood Pressure 178/84 H Blood Pressure [Left Arm] 131/95 Blood Pressure Mean 115 Blood Pressure Mean [Left Arm] 107 Blood Pressure Position Sitting Blood Pressure Position [Left Arm] Semi-fowlers Pulse Oximetry 98 94 Oxygen Delivery Method Room Air Room Air Sepsis Recent Fever Within 48 Hours No Sepsis New/Unexplained Change in Mental Status N/A Sepsis Action Taken by Nursing No Action Required 05/08/24 14:30 05/08/24 16:04 05/08/24 16:06 Temperature Temperature Source Pulse Rate 65 Pulse Rate [Apical] 64 66 Pulse Rhythm [Apical] Regular Regular Pulse Strength [Apical] Normal Normal Respiratory Rate 16 29 H Respiratory Effort / Characteristics Non-Labored Spontaneous Non-Labored Respiratory Depth Normal Normal Respiratory Pattern Regular Regular Blood Pressure Blood Pressure [Left Arm] 182/89 H 190/91 H Blood Pressure Mean Blood Pressure Mean [Left Arm] 120 124 Blood Pressure Position Blood Pressure Position [Left Arm] Semi-fowlers Lying Pulse Oximetry 97 93 Oxygen Delivery Method Room Air Room Air Sepsis Recent Fever Within 48 Hours Sepsis New/Unexplained Change in Mental Status Sepsis Action Taken by Nursing 05/08/24 18:01 Temperature Temperature Source Pulse Rate Pulse Rate [Apical] 68 Pulse Rhythm [Apical] Regular Pulse Strength [Apical] Normal Respiratory Rate 22 Respiratory Effort / Characteristics Non-Labored Respiratory Depth Normal Respiratory Pattern Regular Blood Pressure Blood Pressure [Left Arm] 171/85 H Blood Pressure Mean Blood Pressure Mean [Left Arm] 113 Blood Pressure Position Blood Pressure Position [Left Arm] Lying Pulse Oximetry 96 Oxygen Delivery Method Room Air Sepsis Recent Fever Within 48 Hours Sepsis New/Unexplained Change in Mental Status Sepsis Action Taken by [facility] Medications Current Medication List: was personally reviewed by me Laboratory Data Attestation: I reviewed the patient's lab results. 05/11/24 05:51 05/11/24 05:51 Lab Results 05/08/24 05/08/24 05/08/24 Range/Units 12:08 12:19 13:30 WBC 5.55 (4.8-10.8) K/ul RBC 3.43 L (4.20-5.40) M/uL Hgb 10.8 L (12.0-16.0) g/dl Hct 33.1 L (37.0-47.0) % MCV 96.5 (80.0-100.0) fL MCH 31.5 (25.0-34.0) pg MCHC 32.6 (32.0-36.0) g/dL RDW Std Deviation 51.2 H (36.4-46.3) fL RDW Coeff of [place] 14.6 H (11.5-14.5) % Plt Count 188 (130-400) K/uL MPV 9.5 (9.4-12.4) fL Immature Gran % (Auto) 0.5 % Neut % (Auto) 59.0 % Lymph % (Auto) 23.6 % [place] % (Auto) 8.8 % Eos % (Auto) 7.7 % Baso % (Auto) 0.4 % Neut # (Auto) 3.27 (1.40-6.50) K/uL Lymph # (Auto) 1.31 (1.20-3.40) K/uL [place] # (Auto) 0.49 (0.11-0.59) K/uL Eos # (Auto) 0.43 (0.00-0.50) K/uL Baso # (Auto) 0.02 (0.00-0.20) K/uL Immature Gran # (Auto) 0.03 (0.01-0.20) K/uL PT 10.6 (9.0-12.0) Seconds INR 1.0 (0.9-1.1) APTT 25 (21-31) Seconds PTT Ratio 0.9 Sodium 142 (136-145) mmol/L Potassium 4.0 (3.5-5.1) mmol/L Chloride 107 (98-107) mmol/L Carbon Dioxide 30 (21-32) mmol/L Anion Gap 5 (3-11) BUN 19 (6-23) mg/dl Creatinine 0.94 (0.6-1.2) mg/dl Est Cr Clr Drug Dosing Not Reportable eGFR 58.00 BUN/Creatinine Ratio 20.2 H (10-20) Glucose 94 (70-99(Fasting)) mg/dl POC Glucose 121 H (70-99) mg/dl Estimat Average Glucose mg/dl Hemoglobin A1c (4.5-5.6) % Calcium 9.1 (8.6-10.3) mg/dl Magnesium 2.0 (1.7-2.4) mg/dl Total Bilirubin 0.4 (0.2-1.0) mg/dl AST 21 (13-39) U/L ALT 14 (7-52) U/L Alkaline Phosphatase 81 (34-104) U/L Troponin I High Sens 6.0 (0-14) pg/ml Total Protein 6.4 (6.0-8.3) gm/dl Albumin 3.7 (3.4-5.0) gm/dl Globulin 2.7 (2.5-4.0) gm/dl Albumin/Globulin Ratio 1.4 (0.9-2) Triglycerides (0-150) mg/dl Cholesterol (0-200) mg/dl LDL Cholesterol, Calc mg/dl VLDL Cholesterol, Calc (0-30) mg/dl HDL Cholesterol mg/dl Cholesterol/HDL Ratio (0-5) Urine Color Yellow Urine Appearance Clear (Clear) Urine pH 6.5 (4.5-7.5) Ur Specific [place] 1.013 (1.000-1.030) Urine Protein Negative (Negative) Urine Glucose (UA) Negative (Negative) Urine Ketones Negative (Negative) Urine Blood Trace H (Negative) Urine Nitrite Negative (Negative) Urine Bilirubin Negative (Negative) Urine Urobilinogen Negative (Negative) Ur Leukocyte Esterase Negative (Negative) Urine WBC (Auto) 0-5 (0-5) /hpf Urine RBC (Auto) 3-5 H (0-2) /hpf U Hyaline Cast (Auto) 0-2 (0-2) /lpf U Epithel Cells (Auto) 0-2 (0-2) /hpf Urine Bacteria (Auto) None Seen (None Seen) 05/09/24 Range/Units 06:30 WBC 8.05 (4.8-10.8) K/ul RBC 3.22 L (4.20-5.40) M/uL Hgb 10.0 L (12.0-16.0) g/dl Hct 30.3 L (37.0-47.0) % MCV 94.1 (80.0-100.0) fL MCH 31.1 (25.0-34.0) pg MCHC 33.0 (32.0-36.0) g/dL RDW Std Deviation 51.1 H (36.4-46.3) fL RDW Coeff of [place] 14.7 H (11.5-14.5) % Plt Count 191 (130-400) K/uL MPV 9.5 (9.4-12.4) fL Immature Gran % (Auto) 0.5 % Neut % (Auto) 68.0 % Lymph % (Auto) 19.5 % [place] % (Auto) 11.3 % Eos % (Auto) 0.5 % Baso % (Auto) 0.2 % Neut # (Auto) 5.47 (1.40-6.50) K/uL Lymph # (Auto) 1.57 (1.20-3.40) K/uL [place] # (Auto) 0.91 H (0.11-0.59) K/uL Eos # (Auto) 0.04 (0.00-0.50) K/uL Baso # (Auto) 0.02 (0.00-0.20) K/uL Immature Gran # (Auto) 0.04 (0.01-0.20) K/uL PT (9.0-12.0) Seconds INR (0.9-1.1) APTT (21-31) Seconds PTT Ratio Sodium 141 (136-145) mmol/L Potassium 3.9 (3.5-5.1) mmol/L Chloride 106 (98-107) mmol/L Carbon Dioxide 28 (21-32) mmol/L Anion Gap 7 (3-11) BUN 21 (6-23) mg/dl Creatinine 0.90 (0.6-1.2) mg/dl Est Cr Clr Drug Dosing 29.7 eGFR 61.11 BUN/Creatinine Ratio 23.3 H (10-20) Glucose 88 (70-99(Fasting)) mg/dl POC Glucose (70-99) mg/dl Estimat Average Glucose 126 mg/dl Hemoglobin A1c 6.0 H (4.5-5.6) % Calcium 8.8 (8.6-10.3) mg/dl Magnesium (1.7-2.4) mg/dl Total Bilirubin (0.2-1.0) mg/dl AST (13-39) U/L ALT (7-52) U/L Alkaline Phosphatase (34-104) U/L Troponin I High Sens (0-14) pg/ml Total Protein (6.0-8.3) gm/dl Albumin (3.4-5.0) gm/dl Globulin (2.5-4.0) gm/dl Albumin/Globulin Ratio (0.9-2) Triglycerides 95 (0-150) mg/dl Cholesterol 136 (0-200) mg/dl LDL Cholesterol, Calc 72 mg/dl VLDL Cholesterol, Calc 19 (0-30) mg/dl HDL Cholesterol 45 mg/dl Cholesterol/HDL Ratio 3.0 (0-5) Urine Color Urine Appearance (Clear) Urine pH (4.5-7.5) Ur Specific [place] (1.000-1.030) Urine Protein (Negative) Urine Glucose (UA) (Negative) Urine Ketones (Negative) Urine Blood (Negative) Urine Nitrite (Negative) Urine Bilirubin (Negative) Urine Urobilinogen (Negative) Ur Leukocyte Esterase (Negative) Urine WBC (Auto) (0-5) /hpf Urine RBC (Auto) (0-2) /hpf U Hyaline Cast (Auto) (0-2) /lpf U Epithel Cells (Auto) (0-2) /hpf Urine Bacteria (Auto) (None Seen) Administered Medications Discontinued Medications Acetaminophen (Acetaminophen 500 Mg Tab) 1,000 mg PO Q6H PRN PRN Reason: Pain Stop: 06/07/24 21:01 Last Admin: 05/11/24 21:24 Dose: 1,000 mg Documented By: Admin: 05/10/24 18:35 Dose: 1,000 mg Documented By: GERARDO Aspirin (Aspirin 81 Mg Ectab) 81 mg PO [facility] Stop: 06/08/24 08:59 Last Admin: 05/10/24 07:59 Dose: 81 mg Documented By: Admin: 05/09/24 08:00 Dose: 81 mg Documented By: GERARDO Atorvastatin Calcium (Atorvastatin 20 Mg Tab) 20 mg PO [facility] Stop: 06/07/24 21:14 Last Admin: 05/09/24 22:04 Dose: Not Given Documented By: Admin: 05/08/24 22:14 Dose: 20 mg Documented By: JEM Atorvastatin Calcium (Atorvastatin 40 Mg Tab) 40 mg PO [facility] Stop: 06/09/24 20:59 Last Admin: 05/10/24 21:09 Dose: 40 mg Documented By: EFK Atorvastatin Calcium (Atorvastatin 20 Mg Tab) 20 mg PO HS [facility] Stop: 06/10/24 20:59 Last Admin: 05/11/24 21:23 Dose: 20 mg Documented By: JEM Ciprofloxacin (Ciprofloxacin Hcl 0.3% Op Soln 2.5 Ml Btl) 2 drops OPR NOW ONE Stop: 05/08/24 12:14 Last Admin: 05/08/24 13:02 Dose: 2 drops Documented By: Clopidogrel Bisulfate (Clopidogrel Bisulfate 75 Mg Tab) 75 mg PO QAM [facility] Stop: 06/10/24 08:59 Last Admin: 05/12/24 09:24 Dose: 75 mg Documented By: Admin: 05/11/24 09:26 Dose: 75 mg Documented By: OMAR Diphenhydramine HCl (Diphenhydramine 50 Mg/Ml Vial) 25 mg IV NOW STA Stop: 05/08/24 12:11 Last Admin: 05/08/24 12:45 Dose: 25 mg Documented By: Enoxaparin Sodium (Enoxaparin Inj 30 Mg/0.3 Ml Syr) 30 mg SQ [facility] Stop: 06/10/24 08:59 Last Admin: 05/12/24 09:23 Dose: 30 mg Documented By: Admin: 05/11/24 10:52 Dose: 30 mg Documented By: OMAR Escitalopram Oxalate (Escitalopram Oxalate 20 Mg Tab) 20 mg PO DAILY [facility] Stop: 06/08/24 08:59 Last Admin: 05/11/24 09:28 Dose: 20 mg Documented By: Admin: 05/10/24 07:59 Dose: 20 mg Documented By: Admin: 05/09/24 07:59 Dose: 20 mg Documented By: GERARDO Escitalopram Oxalate (Escitalopram Oxalate 10 Mg Tab) 10 mg PO DAILY [facility] Stop: 06/11/24 08:59 Last Admin: 05/12/24 09:22 Dose: 10 mg Documented By: OMAR Gadobutrol (Gadobutrol 65ml Vial) 5 ml IV ONCE ONE Stop: 05/10/24 17:50 Last Admin: 05/10/24 17:50 Dose: 5 ml Documented By: CHAYO Sodium Chloride (Nss) 1,000 mls @ 80 mls/hr IV .[id number] [facility] Stop: 05/09/24 12:14 Last Infusion: 05/09/24 07:05 Dose: Infused Documented By: Infusion: 05/08/24 19:21 Dose: 0 mls/hr Documented By: Admin: 05/08/24 12:46 Dose: 80 mls/hr Documented By: Ceftriaxone Sodium (Rocephin) 1,000 mg in 50 mls @ 100 mls/hr IV NOW STA Stop: 05/08/24 12:42 Last Infusion: 05/08/24 14:20 Dose: Infused Documented By: Admin: 05/08/24 12:46 Dose: 100 mls/hr Documented By: Sodium Chloride (Nss) 1,000 mls @ 999 mls/hr IV .Q1H1M ONE Stop: 05/08/24 20:17 Last Infusion: 05/08/24 20:16 Dose: Infused Documented By: Admin: 05/08/24 19:21 Dose: 999 mls/hr Documented By: ROSE Methylprednisolone 40 mg/ (Syringe) 0.64 mls @ 1.5 mls/min IV Q8H [facility] Stop: 06/08/24 15:29 Last Admin: 05/10/24 07:59 Dose: 1.5 mls/min Documented By: Admin: 05/09/24 23:10 Dose: 1.5 mls/min Documented By: Admin: 05/09/24 16:40 Dose: 1.5 mls/min Documented By: GERARDO Ioversol (Optiray 320 125ml) 119 ml IV ONCE ONE Stop: 05/08/24 13:11 Last Admin: 05/08/24 13:11 Dose: 119 ml Documented By: ELVIA Loratadine (Loratadine 10 Mg Tab) 10 mg PO DAILY [facility] Stop: 06/08/24 08:59 Last Admin: 05/12/24 09:23 Dose: 10 mg Documented By: Admin: 05/11/24 09:27 Dose: 10 mg Documented By: Admin: 05/10/24 07:59 Dose: 10 mg Documented By: Admin: 05/09/24 07:59 Dose: 10 mg Documented By: GERARDO Lorazepam (Lorazepam 2 Mg/1 Ml Vial) 0.5 mg IV NOW STA Stop: 05/09/24 12:14 Last Admin: 05/09/24 12:59 Dose: 0.5 mg Documented By: GERARDO Losartan Potassium (Losartan Potassium 25 Mg Tab) 25 mg PO QAM [facility] Stop: 06/08/24 08:59 Last Admin: 05/12/24 09:24 Dose: 25 mg Documented By: [facility] Admin: 05/11/24 09:28 Dose: 25 mg Documented By: [facility] Admin: 05/10/24 08:00 Dose: 25 mg Documented By: [facility] Admin: 05/09/24 07:59 Dose: 25 mg Documented By: GERARDO Meclizine HCl (Meclizine 12.5 Mg Tab) 12.5 mg PO TID [facility] Stop: 06/08/24 20:59 Last Admin: 05/10/24 08:00 Dose: 12.5 mg Documented By: [facility] Admin: 05/09/24 22:05 Dose: Not Given Documented By: JEM Methylprednisolone (Methylprednisolone 125 Mg/2 Ml Vial) 40 mg IV NOW STA Stop: 05/08/24 12:11 Last Admin: 05/08/24 12:46 Dose: 40 mg Documented By: Neomycin/Polymyxin/Dexamethasone (Neomycin/Polymyxin/Dexametha Op Oint 3.5 Gm Tube) 1 appln OPR BID [facility] Stop: 06/07/24 21:14 Last Admin: 05/12/24 09:22 Dose: 1 appln Documented By: [facility] Admin: 05/11/24 21:24 Dose: 1 appln Documented By: Admin: 05/11/24 09:27 Dose: 1 appln Documented By: [facility] Admin: 05/10/24 20:59 Dose: 1 appln Documented By: Admin: 05/10/24 07:59 Dose: 1 appln Documented By: [facility] Admin: 05/09/24 21:59 Dose: 1 appln Documented By: Admin: 05/09/24 10:01 Dose: 1 appln Documented By: [facility] Admin: 05/08/24 22:14 Dose: 1 appln Documented By: JEM Pantoprazole Sodium (Pantoprazole 40 Mg Tab) 40 mg PO DAILY [facility] Stop: 06/08/24 08:59 Last Admin: 05/12/24 09:24 Dose: 40 mg Documented By: [facility] Admin: 05/11/24 09:28 Dose: 40 mg Documented By: [facility] Admin: 05/10/24 08:00 Dose: 40 mg Documented By: Admin: 05/09/24 07:59 Dose: 40 mg Documented By: [facility] Imaging Data Radiologist's Impression: Head CT 05/08/24 12:10 CT OF THE HEAD WITHOUT CONTRAST CLINICAL HISTORY: neuro deficit, acute stroke suspected COMPARISON STUDY: Head CT November 19, 2023. TECHNIQUE: Helical axial images of the head were obtained without IV contrast. Automated exposure control was utilized for the study. A dose lowering technique was utilized adhering to the principles of ALARA. FINDINGS: No acute intracranial hemorrhage, midline shift or mass effect is present. White matter hypodensities are unchanged and favor small vessel disease. The ventricular system is unremarkable. The basal cisterns are patent. No extra-axial collections are present. There are no findings to suggest acute dural sinus thrombosis or acute territorial infarct. No significant calvarial abnormalities are present. Visualized portions of the sinuses and mastoid air cells are clear. IMPRESSION: No acute intracranial findings. ACT 112: Negative or not required by law. Electronically signed by: Travis Salgado M.D. 05/08/2024 1:44 PM Head CTA 05/08/24 12:10 EXAM: CT Angiography Head With Intravenous Contrast INDICATION: Strokelike symptoms. TECHNIQUE: Axial computed tomographic angiography images of the head with intravenous contrast. Sagittal and coronal reformatted images were created and reviewed. This CT exam was performed using one or more of the following dose reduction techniques: automated exposure control, adjustment of the mA and/or kV according to patient size, and/or use of iterative reconstruction technique. MIP reconstructed images were created and reviewed. CONTRAST: 119ml of Optiray 320 was administered intravenously. COMPARISON: No relevant prior studies available. FINDINGS: Right internal carotid artery: Mild calcific plaque. Intracranial segment is patent with no significant stenosis. No aneurysm. Right anterior cerebral artery: No abnormality noted. No occlusion or significant stenosis. No aneurysm. Right middle cerebral artery: No abnormality noted. No occlusion or significant stenosis. No aneurysm. Right posterior cerebral artery: No abnormality noted. No occlusion or significant stenosis. No aneurysm. Right vertebral artery: No significant abnormality noted. Left internal carotid artery: Mild calcific plaque. Intracranial segment is patent with no significant stenosis. No aneurysm. Left anterior cerebral artery: No abnormality noted. No occlusion or significant stenosis. No aneurysm. Left middle cerebral artery: No abnormality noted. No occlusion or significant stenosis. No aneurysm. Left posterior cerebral artery: No abnormality noted. No occlusion or significant stenosis. No aneurysm. Left vertebral artery: No significant abnormality noted. Basilar artery: No abnormality noted. No occlusion or significant stenosis. No aneurysm. Other vasculature: Patent dural venous sinuses. IMPRESSION: No acute intra graphic abnormality in the brain. ACT 112: Negative or not required by law. Electronically signed by Jacquelyn Torres 05-08-2024 13:57 PM Neck CTA 05/08/24 12:10 EXAM: CT Angiography Neck With Intravenous Contrast INDICATION: H strokelike symptoms. TECHNIQUE: Routine carotid CT angiography protocol was performed with intravenous contrast. NASCET criteria using the distal ICAs for comparison were used for evaluation of stenoses. Sagittal and coronal reformatted images were created and reviewed. This CT exam was performed using one or more of the following dose reduction techniques: automated exposure control, adjustment of the mA and/or kV according to patient size, and/or use of iterative reconstruction technique. MIP reconstructed images were created and reviewed. CONTRAST: 119ml of Optiray 320 was administered intravenously. COMPARISON: None. FINDINGS: VASCULATURE: Right common carotid artery: No abnormality noted. No occlusion or significant stenosis. No dissection. Right internal carotid artery: Mild atherosclerotic calcification in the bulb. Extracranial segment is patent with no occlusion or significant stenosis. No dissection. Right external carotid artery: No abnormality noted. No occlusion. Right vertebral artery: No abnormality noted. No occlusion or significant stenosis. No dissection. Left common carotid artery: No abnormality noted. No occlusion or significant stenosis. No dissection. Left internal carotid artery: Mild atherosclerotic calcification in the bulb. Extracranial segment is patent with no occlusion or significant stenosis. No dissection. Left external carotid artery: No abnormality noted. No occlusion. Left vertebral artery: Very slow flow noted in the left vertebral artery. Brachiocephalic and subclavian arteries: There is severe atherosclerosis and up to 70% narrowing of the origin of the left subclavian artery. NECK: Bones/joints: Diffuse degenerative changes. No acute abnormality noted. Soft tissues: No abnormality noted. Thyroid: There is a 2.2 cm right thyroid nodule. Lung apices: Fibrotic changes in the lung apices. CAROTID STENOSIS REFERENCE USING NASCET CRITERIA: % ICA stenosis = (1 - narrowest ICA diameter/diameter of distal cervical ICA) x 100. Mild - <50% stenosis. Moderate - 50-69% stenosis. Severe - 70-94% stenosis. Near occlusion - 95-99% stenosis. Occluded - 100% stenosis. IMPRESSION: 1. Slow flow in the left cervical vertebral artery. 2. Atherosclerotic calcification of the internal carotid bulbs with less than 20% stenosis. 3. 2.2 cm right thyroid nodule. Nonemergent ultrasound recommended unless already known. ACT 112: Negative or not required by law. Electronically signed by Jacquelyn Torres 05-08-2024 2:05 PM Discharge Plan Visit Data Chief Complaint: Neuro Symptoms/Deficit Stated Complaint: DIZZY, WEAKNESS ON LT SIDE ED Provider: Ashley Callahan Discharge Problem: Stroke-like symptoms, Ambulatory dysfunction Patient Disposition: Admitted As Inpatient Condition: Fair Discharge Instructions Interventions: ED Discharge Assessment Last Done: 05/08/24 20:35
[2024-05-08] MEDS: SODIUM CHLORIDE 0.9% 1,000 ML IV ONE (19:21)
[2024-05-08] MEDS ORDERED: PHARMACIST DISCHARGE MED REC CONSULT PRN (21:02)
[2024-05-08] MEDS ORDERED: SIMETHICONE 80 MG CHEW PO PRN (21:07)
[2024-05-08] MEDS: ATORVASTATIN 20 MG TAB PO SCH (22:14)
[2024-05-08] MEDS: NEOMYCIN/POLYMYXIN/DEXAMETHA OP OINT 3.5 GM TUBE OPR SCH (22:14)
[2024-05-09 07:01] LABS: Basophils # (auto) 0.02 K/uL (0.00-0.20); Basophils % (auto) 0.2 %; Eosinophils # (auto) 0.04 K/uL (0.00-0.50); Eosinophils % (auto) 0.5 %; Hematocrit (blood only) 30.3 % (37.0-47.0); Immature Granulocytes # (auto) 0.04 K/uL (0.01-0.20); Immature Granulocytes % (auto) 0.5 %; Lymphocytes # (auto) 1.57 K/uL (1.20-3.40); Lymphocytes % (auto) 19.5 %; Mean Corpuscular Hemoglobin 31.1 pg (25.0-34.0); Mean Corpuscular Volume 94.1 fL (80.0-100.0); Mean Platelet Volume 9.5 fL (9.4-12.4); Monocytes # (auto) 0.91 K/uL (0.11-0.59); Monocytes % (auto) 11.3 %; Neutrophils # (auto) 5.47 K/uL (1.40-6.50); Platelet Count 191 K/uL (130-400); RDW Coefficient of Variation 14.7 % (11.5-14.5); RDW Standard Deviation 51.1 fL (36.4-46.3); Red Blood Count 3.22 M/uL (4.20-5.40); White Blood Count 8.05 K/ul (4.8-10.8)
[2024-05-09 07:25] LABS: BUN Creatinine Ratio 23.3 (10-20); Calcium 8.8 mg/dl (8.6-10.3); Creatinine Clr Calc Pharmacy 29.7 ml/min; Potassium 3.9 mmol/L (3.5-5.1)
[2024-05-09 07:43] LABS: Estimated Average Glucose 126 mg/dl
[2024-05-09] MEDS: PANTOprazole 40 MG TAB PO SCH (07:59)
[2024-05-09] MEDS: LOSARTAN POTASSIUM 25 MG TAB PO SCH (07:59)
[2024-05-09] MEDS: LORATADINE 10 MG TAB PO SCH (07:59)
[2024-05-09] MEDS: ESCITALOPRAM OXALATE 20 MG TAB PO SCH (07:59)
[2024-05-09] MEDS: ASPIRIN 81 MG ECTAB PO SCH (08:00)
[2024-05-09] MEDS ORDERED: PNEUMOCOCCAL VACCINE (PCV20) 20-VAL CONJ-DIP CRM/PF 0.5 ML SYR IM ONE (09:00)
--- NOTE | 2024-05-09 10:56 | Hospitalist Progress Note ---
Date of Service May 09, 2024 Assessment & Plan (1) Stroke-like symptoms: Plan: The patient states the left-sided paresthesia present on admission have resolved. No focal weakness. Brain MRI scan is pending along with cardiac echo. (2) Preseptal cellulitis of right eye: Plan: She is keeping her right eye closed. There is no exudate seen or swelling or scleral injection. She remains on intravenous Rocephin for now. (3) HTN (hypertension): Plan: Stable. Continue ARB therapy (4) Osteoporosis: Plan: Stable. Continue Fosamax therapy and vitamin D3 (5) Dyslipidemia: Plan: Stable. Continue atorvastatin Plan Eventual discharge back to home if MRI scan of the brain is negative for CVA Admission and Anticipated Discharge Date Admission Date: May 08, 2024 Subjective Alert and oriented. No distress. She keeps her right eye closed due to apparent periorbital cellulitis. She is now on intravenous Rocephin. She presented to the hospital with strokelike symptoms affecting her left side. This is now resolved. Brain MRI scan is pending. Head and neck CTA revealed noncritical disease. Admission head CT scan negative for hemorrhage. Hopefully she can go home later today, May 09 Review of Systems 2 Review of Systems: Constitutionalno fever or chills ENTcurrently being treated for periorbital cellulitis involving the right eye. No blurred vision, no double vision, no epistaxis, no sore throat Respiratoryno cough, no wheezing, no shortness of breath Cardiacno palpitations, no chest pain, no syncope Gregory nausea, vomiting, diarrhea, melena, hematochezia GUno urinary retention, no urinary incontinence, no dysuria, no hematuria Musculoskeletalno joint pain, no muscle tenderness Skinno bruising, no rashes, no pruritus Neurono isolated weakness on exam. Left-sided tingling has resolved. No focal weakness Psychno depression, no anxiety Physical Exam 2 Physical Exam: General-alert and oriented x3, no fever, no chills HEENT-head atraumatic and normocephalic, pupils equal and reactive to light, extraocular muscles intact. She keeps the right eye closed but there is no periorbital erythema or edema seen. No scleral injection or exudate involving the right eye Neck-no lymphadenopathy or thyromegaly, trachea midline Chest-clear to auscultation. No rales, wheezing or rhonchi Cardiac-regular rate and rhythm, normal S1 and S2 Abdomen-normal bowel sounds, no hepatosplenomegaly Extremities-no cyanosis, clubbing, or edema Neuro-cranial nerves II through XII intact, motor and sensory function within normal limits, strength symmetrical, no focal deficits Psych-normal affect, normal mood Results & Data Results & Data Vital Signs (Past 12 Hours) Vital Signs Temp Pulse Pulse Resp BP Pulse Ox O2 Del Method 05/09/24 08:38 82 05/09/24 08:04 Room Air 05/09/24 07:53 36.3 C L 83 20 136/74 93 Room Air 05/09/24 07:51 Room Air 05/09/24 03:28 36.7 C 77 16 134/71 95 Room Air Laboratory Results 05/09/24 06:30 05/09/24 06:30 PG Care Time/CCT Total # of Minutes Spent Total Time Spent with Patient: Total time spent is greater than 50% in coordination of care (as documented) at patient's floor/unit and/or counseling patient: Coding Level of Care Code 69064 SUB INP/OBS CARE 3/50MIN Diagnoses Stroke-like symptoms R29.90 Preseptal cellulitis of right eye L03.213 Essential hypertension I10 Hypertension type: essential hypertension Osteoporosis M81.0 Dyslipidemia E78.5 (3) HTN (hypertension) Hypertension type: essential hypertension Qualified Code(s): I10 - Essential (primary) hypertension
--- NOTE | 2024-05-09 11:54 | XCELERA ---
[id number] \\[id number]
--- NOTE | 2024-05-09 12:06 | Electrocardiogram Report ---
Test Reason : Blood Pressure : */* mmHG Vent. Rate : 70 BPM Atrial Rate : 70 BPM P-R Int : 222 ms QRS Dur : 88 ms QT Int : 404 ms P-R-T Axes : 47 43 29 degrees QTcB Int : 436 ms Sinus rhythm with 1st degree A-V block Otherwise normal ECG When compared with ECG of 20-Nov-2022 16:33, No significant change was found Confirmed by Josué Montejo ([id number]) on 05/09/2024 12:06:38 PM Referred By: REFERRED SELF Confirmed By: Josué Montejo
[2024-05-09] MEDS ORDERED: cefTRIAXone SODIUM 1,000 MG/50 ML BAG IV SCH (12:30)
[2024-05-09] MEDS: LORazepam 2 MG/1 ML VIAL IV STA (12:59)
--- NOTE | 2024-05-09 14:50 | Magnetic Resonance Report ---
EXAM: MR brain wo con CLINICAL HISTORY: R/O STROKE LEFT SIDED FACIAL DROOP AND LEANING TO THE LEFT HX DEMENTIA PT. WAS MEDICATED FOR CLAUSTROPHOBIA PT. COMBATIVE AT THIS TIME. WAS NOT ABLE TO GIVE CONTRAST TO COMPLETE STUDY. TECHNIQUE: MRI of the brain was performed without contrast with multiplanar sequences obtained. COMPARISON: CT head 05/08/2024 FINDINGS: Motion artefacts are seen degrading the image quality. Limited study as only DWI and T1 were acrquired. No evidence of acute infarction on DWI. IMPRESSION: No acute infarction on this limited study. Follow-up is advised if clinically indicated. Electronically signed by Hailey Robert 05-09-2024 2:49 PM
[2024-05-09] MEDS ORDERED: OLANZapine 10 MG/2.1 ML SDV IM PRN (15:19)
[2024-05-09] MEDS ORDERED: methylPREDNISolone 10 mg/mL (For Ped Dose < 7mg) IV SCH (15:30)
[2024-05-09] MEDS: methylPREDNISolone 40 MG in SYRINGE 0 ML IV SCH (16:40)
[2024-05-09] MEDS: MECLIZINE 12.5 MG TAB PO SCH (22:05)
[2024-05-10 07:27] LABS: Hematocrit (blood only) 34.6 % (37.0-47.0); Hemoglobin 11.5 g/dl (12.0-16.0); Immature Granulocytes # (auto) 0.04 K/uL (0.01-0.20); Immature Granulocytes % (auto) 0.6 %; Lymphocytes # (auto) 0.82 K/uL (1.20-3.40); Lymphocytes % (auto) 12.6 %; Mean Corpuscular Hemoglobin 31.2 pg (25.0-34.0); Mean Corpuscular Hgb Conc 33.2 g/dL (32.0-36.0); Mean Corpuscular Volume 93.8 fL (80.0-100.0); Mean Platelet Volume 9.6 fL (9.4-12.4); Monocytes # (auto) 0.06 K/uL (0.11-0.59); Monocytes % (auto) 0.9 %; Neutrophils # (auto) 5.58 K/uL (1.40-6.50); Neutrophils % (auto) 85.9 %; Platelet Count 204 K/uL (130-400); RDW Coefficient of Variation 15.2 % (11.5-14.5); RDW Standard Deviation 51.8 fL (36.4-46.3); Red Blood Count 3.69 M/uL (4.20-5.40)
[2024-05-10 07:43] LABS: BUN Creatinine Ratio 26.1 (10-20); Creatinine Clr Calc Pharmacy 29.1 ml/min; Potassium 4.4 mmol/L (3.5-5.1)
--- NOTE | 2024-05-10 12:53 | Hospitalist Progress Note ---
Date of Service May 10, 2024 Assessment & Plan (1) Acute ischemic stroke: Plan: P/w acute onset of difficulty walking with leaning to the left and right eye extraocular muscle weakness causing her to close right eye CTA H/N negative. ECHO negative, and initial brain MRI negative but poor quality study Given medial adductor weakness and ataxis, opted for STAT Brain MRI 05/10 with contrast and does confirm right midbrain CVA Consult Neuro Start Plavix and dc ASA Increase statin to high intensity HgbA1C 6.0%, lipids good PT/OT recommend rehab Monitor on tele for arrhythmias Can dc the IV steroids and meclizine (2) Preseptal cellulitis of right eye: Plan: She is keeping her right eye closed likely due to diplopia from CVA Was treated previously with eye drops, keflex, po steroids, antiviral for cold sores on lips nad nose-->possible herpes zoster No need for current antibiotics therapy-likely just needs moisturizer WIll need ongoing Ophthalmology f/u as outpt (3) HTN (hypertension): Plan: Permissive HTN in setting of stroke continue losartan (4) Thyroid nodule: Plan: Seen on CT neck, 2.2 cm no TSH in our lab system in 2 years-check in AM Plan Chronic Medical Problems: TIFFANIE- cannot tolerate CPAP HL-lipids acceptable but given CVA, increase atorva to 40mg daily ANxiety-continue Lexapro, no acute issues PAD-with a h/o carotid endarterectomy? continue antiplatelet and statin. CTA ne ck here no significant blockages Mild cognitive impairment-supportive care GERD-continue PPI DVT proph-add Lovenox Dispo-dc to rehab when availability Admission and Anticipated Discharge Date Admission Date: May 08, 2024 Subjective Pt still c/o falling/leaning to the left with standing. No room spinning or dizziness. No weakness. Prefers to keep right eye closed. Feels itchy in her face. Pt denies headache, fevers/chills. Daughter at bedside reports pt had periorbital cellulitis about 5 weeks ago and was treated with abx and steroids, eye ointment. She then developed cold sores on lips and nose that were not particularly painful that she recalls. She was treated with an antiviral x 1 week then. Was told no viral infection present in eye by Hoe Runner after examination. Face cleared up and then about a week ago, her right eye became itchy again and now skin dry and itchy on face on right side. Denies CP, SOB, nausea. Tele with NSR, ST rates in 70s I discussed her care with Radiology and with Neurology over the phone Physical Exam Constitutional: WD/WN, vitals as above Eyes: + eyelid abnormality (OD mild edema uppe r lid,dry skin) and + anicteric sclerae; + no PERRL (OD pupil sluggishly reactive compared to left), + EOM not intact (unable to adduct OD medially or look downward or upward OD) and no nystagmus ENMT: external ear and nose normal, oropharynx normal Respiratory: normal respiratory effort, lungs clear to auscultation Cardiovascular: RRR, no murmur, no edema Gastrointestinal (Abdomen): normal bowel sounds, soft, nontender, no hepatosplenomegaly Skin: + erythema (mild of right cheek and OD p eriorbital region) Neurologic: normal touch/pain/proprioception, moves all extremities and awake; + CN's not intact (intact except CN III on right), no focal motor deficits, no meningeal signs and not confused Speech / Cognition: normal speech Coordination: + abnormal [id number] test (on left); normal [id number] test and does not sway with eyes open Psychiatric: Orientation: alert, oriented to person, oriented to place and cooperative Results & Data Results & Data Vital Signs (Past 12 Hours) Vital Signs Temp Pulse Pulse Resp BP Pulse Ox O2 Del Method 05/10/24 11:22 36.6 C 78 18 148/72 H 96 Room Air 05/10/24 07:08 69 05/10/24 07:00 36.6 C 67 16 154/68 H 95 Room Air 05/10/24 05:00 84 164/81 H 05/10/24 04:14 36.7 C 83 18 184/88 H 95 Room Air Laboratory Results CBC, BMP reviewed Diagnostic Findings MRI brain reviewed PG Care Time/CCT Total # of Minutes Spent Total Time Spent with Patient: Total time spent is greater than 50% in coordination of care (as documented) at patient's floor/unit and/or counseling patient: Coding Level of Care Code 88401 SUB INP/OBS CARE 3/50MIN Diagnoses Acute ischemic stroke I63.9 Preseptal cellulitis of right eye L03.213 Essential hypertension I10 Hypertension type: essential hypertension Thyroid nodule E04.1 (3) HTN (hypertension) Hypertension type: essential hypertension Qualified Code(s): I10 - Essential (primary) hypertension
[2024-05-10] MEDS: GADOBUTROL 65ML VIAL IV ONE (17:50)
[2024-05-10] MEDS: ACETAMINOPHEN 500 MG TAB PO PRN (18:35)
--- NOTE | 2024-05-10 19:56 | Magnetic Resonance Report ---
EXAM: MR brain wo/w con CLINICAL HISTORY: 5 ml Gadavist Stroke-like symptoms, L sided symptoms including leaning to the left side, dragging her left lower extremity, ? Left-sided facial droop x 24hr; No neuro deficits on exam, experiencing dizziness when walking still. TECHNIQUE: Different pulse sequences were performed in different planes for the brain without and with GD-DTPA injection. 5 mL of Gadavist was injected intravenously without complications. Images were sent through PACs for interpretation. COMPARISON: prior MRI dated 05/09/[address] dated 05/08/2024. FINDINGS: Subacute infarction is seen at the right aspect of the midbrain tegmentum and right cerebral peduncle, exhibiting bright signals on DWI, T2 and FLAIR WI. Dark signals on ADCmap. Altered deep white matter signals are seen at the forceps minor, forceps major, periventricular, and centrum semiovale regions. These exhibit bright signals on T2 and FLAIR WI and intermediate signals on T1 WI. Findings suggest consequences of small vessel disease, e.g., hypertensive and/or diabetic vasculopathy. Mild widening of the frontoparietal sulci and sylvian fissures, and basal cisterns. Findings Are consistent with a normal aging brain. Hyperostosis frontalis interna. Normal MRI appearance of the cerebellar parenchymal signals. Normal MRI appearance of the central avalos matter aggregates. Normal size and configuration of the cerebral ventricles. Normal MRI appearance of different anatomical parts of the brain stem, namely the donnie, and medulla oblongata. Normal MRI appearance of the petrous temporal bones, brainstem, vestibule cochlear nerves, and cerebellopontine angles with no definite masses. No shift of midline structures. No intracerebral or extra-axial hematomas or masses. Normal MRI appearance of orbital structures, both globes, optic nerves, optic chiasm, optic tracts, and optic radiations. The scanned paranasal sinuses are unremarkable. Bilateral cataract surgery. Hypertrophic inferior nasal turbinates. Deviation of the nasal septum to the left side. IMPRESSION: 1. Subacute infarction is seen at the right aspect of the midbrain tegmentum and right cerebral peduncle, exhibiting bright signals on DWI, T2 and FLAIR WI. Dark signals on ADCmap. 2. Altered deep white matter signals with anatomical distribution and imaging features consistent with the consequences of small vessel disease e.g., hypertensive and/or diabetic vasculopathy. (Fazekas grade 1). 3. Normal aging brain. 4. Hyperostosis frontalis interna. 5. The comparison matches the CT findings. 6. The reported findings explain the current clinical status. [facility] ER was called at [phone] at 06:54 PM ASSOCIATE MUSIC PROFESSOR, 05/10/2024, and Nurse Yumiko was informed regarding the presence of critical medical findings in the reports Electronically signed by Hailey Robert 05-10-2024 7:56 PM
[2024-05-10] MEDS: ATORVASTATIN 40 MG TAB PO SCH (21:09)
[2024-05-11 06:45] LABS: Basophils # (auto) 0.01 K/uL (0.00-0.20); Basophils % (auto) 0.1 %; Eosinophils # (auto) 0.11 K/uL (0.00-0.50); Eosinophils % (auto) 1.3 %; Hematocrit (blood only) 32.4 % (37.0-47.0); Hemoglobin 10.6 g/dl (12.0-16.0); Immature Granulocytes # (auto) 0.03 K/uL (0.01-0.20); Immature Granulocytes % (auto) 0.4 %; Lymphocytes # (auto) 2.17 K/uL (1.20-3.40); Lymphocytes % (auto) 25.8 %; Mean Corpuscular Hgb Conc 32.7 g/dL (32.0-36.0); Mean Corpuscular Volume 94.7 fL (80.0-100.0); Mean Platelet Volume 9.7 fL (9.4-12.4); Monocytes # (auto) 0.89 K/uL (0.11-0.59); Monocytes % (auto) 10.6 %; Neutrophils # (auto) 5.19 K/uL (1.40-6.50); Neutrophils % (auto) 61.8 %; Platelet Count 197 K/uL (130-400); RDW Coefficient of Variation 15.2 % (11.5-14.5); RDW Standard Deviation 51.9 fL (36.4-46.3); Red Blood Count 3.42 M/uL (4.20-5.40)
[2024-05-11 06:56] LABS: BUN Creatinine Ratio 27.4 (10-20); Calcium 8.9 mg/dl (8.6-10.3); Creatinine Clr Calc Pharmacy 23.5 ml/min; Potassium 3.8 mmol/L (3.5-5.1)
[2024-05-11 07:11] LABS: Thyroid Stimulating Hormone 4.109 uIu/ml (0.300-4.500)
[2024-05-11] MEDS: CLOPIDOGREL BISULFATE 75 MG TAB PO SCH (09:26)
--- NOTE | 2024-05-11 10:44 | Neurology Consultation ---
Date of Consultation May 11, 2024 Assessment & Plan (1) Acute ischemic stroke: (2) 3rd nerve palsy, partial: (3) Preseptal cellulitis of right eye: Plan This patient has evidence on MRI of an acute/subacute midbrain stroke near the midline to the right extending into the right cerebellar peduncle. This is likely secondary to small vessel ischemic disease and she has a history of hypertension. On examination she has a painless pupil sparing partial 3rd nerve palsy on the right with some left-sided weakness and balance issues. I do not see any overt left sided ataxia but she does lean to the left with her balance and cannot ambulate well. She has proximal greater than distal weakness in the left upper extremity, and no weakness of the left lower extremity or face. She is likely improving some compared to admission. The patient had cellulitis around the eye but there is no evidence on MRI or on exam of ongoing infection or cellulitis. This brainstem stroke occurred on 81 mg aspirin daily. Recommendations: 1. Agree with discontinuing aspirin and initiating clopidogrel 75 mg daily for stroke prevention 2. Control blood pressure, aiming for a mean arterial pressure of approximately 100. 3. The patient given her advanced age and total cholesterol of 136 would not be a high-dose statin candidate. Continue with atorvastatin 20 mg daily. 4. Physical, occupational, and speech therapy. Consider rehabilitation hospital transfer for strengthening and gait training. 5. Assess whether the patient needs 20 mg of escitalopram daily (a relatively high dose for her age and size). See if she could decrease to 10 mg daily. 6. To follow-up with ophthalmology after discharge 7. Follow-up with neurology (can see neurology PA 2 to 3 weeks after discharge). Overall, I spent a total of 90 minutes with this case including review of records, review of MRI films, direct evaluation the patient at bedside, report generation, and discussion of the case with the patient and son at bedside, RN at bedside, and Dr. Lara including differential diagnosis and treatment options History of Present Illness Reason for Consultation: Patient is an 88-year-old, who I was asked to see at the request of Dr. Lara, for neurologic consultation regarding probable stroke. Patient's son is present in the room also Requesting Physician: Dr. Lara Attending Physician: Barbara Lara MD History of Present Illness This patient has a history of left carotid endarterectomy for stenosis in 2002. She has a left subclavian artery stenosis which she is being followed by vascular surgery. Carotid ultrasound in February 2021 showed 50 to 60% stenosis in the right internal carotid artery and 30 to 50% stenosis in the left internal carotid artery. The patient has coronary artery disease and peripheral arterial disease. She has a history of hypertension and dyslipidemia. Patient started having pain in redness around her right eye March 28 which progressed into a new right facial/orbital cellulitis. Starting on April 02 she was given Keflex 500 mg 3 times daily for 1 week plus prednisone 10 mg daily for 5 days. Follow-up visit April 09 showed improved edema but her eye feels itchy/scratchy and she had been rubbing it a lot. Zoster was considered and she was given valacyclovir 1000 mg 3 times a day for 7 days. No rash was noted. She did see Santa Lisa OD, March 21 and the patient was improved. Patient states that she has had balance problems for many months and uses a walker. Patient's son visited the patient on May 06 and noted the right eye having some swelling and redness but this was apparently stable from previous. The patient stated that she had a headache on and off for about a week but woke up with a bitemporal headache on May 08. She had a left facial droop and was leaning to the left. Walking was much more difficult. She came to the emergency room May 08 at 1144 with a temperature of 36.9, pulse 84, respiratory 18, blood pressure 178/84 with an O2 saturation 98%. Right face and upper eyelid were swollen and warm but no focal neurologic deficit was noted. The patient remained afebrile. CBC was unremarkable and she did not have an elevated white count. CHEM profile was unremarkable as was urinalysis. CT scan of the head was unremarkable. CT angiography of the head was normal/unremarkable. CT angiography of the neck showed decreased flow in the left vertebral and no other specific stenoses was noted. Echocardiogram was largely unremarkable The patient had an MRI of the brain May 09, was read as showing no evidence of acute stroke. I reviewed these films on May [address] Lara that I believe there was a midline (slightly to the right) midbrain subacute stroke. The film was difficult because of patient movement but there was evidence of old small vessel ischemic disease as well. Repeat MRI of the brain May 10, with and without contrast showed a an acute/subacute midline midbrain (to the right) as well as the right cerebellar peduncle stroke. There were other small vessel ischemic changes of an old nature and she had mild generalized atrophy consistent with her age. I reviewed these films as well. This morning, the patient does not have any pain or headache but feels she cannot open her right eyelid. She denies double vision. She has weakness in the left upper extremity and she has abnormal gait. Triglyceride was 95 and total cholesterol 136. Allergies Allergy/AdvReac Type Severity Reaction Status Date / Time iodine Allergy Intermediate IV and Verified 05/08/24 14:47 topical iodine- rash adhesive Allergy Mild skin Verified 05/08/24 14:47 irritation Sulfa (Sulfonamide Allergy Mild rash Verified 05/08/24 14:47 Antibiotics) Cipro Allergy Unknown UNKNOWN Verified 07/16/17 11:06 shellfish derived Allergy Unknown Avoids due Unverified 05/08/24 14:47 to Iodine allergy ciprofloxacin AdvReac Intermediate GI upset Verified 05/08/24 14:47 codeine AdvReac Intermediate felt "ill Verified 05/08/24 14:47 and dizzy" levofloxacin AdvReac Intermediate arm pain Verified 05/08/24 14:47 morphine AdvReac Intermediate Gastrointestinal Verified 05/08/24 14:47 Upset sertraline AdvReac Intermediate Diarrhea Verified 05/08/24 14:47 Home Medications Medication Instructions Recorded Confirmed Type loratadine 10 mg capsule 10 mg PO DAILY SEASONAL ALLERGIES 03/10/19 05/08/24 History cholecalciferol (vitamin D3) 25 2,000 units PO QPM 01/04/20 05/08/24 History mcg (1,000 unit) tablet aspirin 81 mg tablet,delayed 81 mg PO QAM 11/20/22 05/08/24 History release simethicone 125 mg capsule (Gas-X 125 mg PO DAILY PRN 11/20/22 05/08/24 History Extra Strength) Gastrointestinal Spasms Or Cramping acetaminophen 500 mg tablet 1,000 mg PO Q6H PRN Pain 12/04/22 05/08/24 History (Tylenol Extra Strength) docusate sodium 100 mg capsule 100 mg PO DAILY PRN Constipation 12/12/22 05/08/24 History alendronate 70 mg tablet 70 mg PO WK #12 tabs 09/11/23 05/08/24 Rx meloxicam 7.5 mg tablet 7.5 mg PO DAILY #90 tabs 11/06/23 05/08/24 Rx atorvastatin 20 mg tablet 20 mg PO HS #90 tabs 12/04/23 05/08/24 Rx escitalopram oxalate 20 mg tablet 20 mg PO DAILY #90 tabs 12/16/23 05/08/24 Rx (Lexapro) omeprazole 40 mg capsule,delayed 40 mg PO DAILY #90 caps 01/07/24 05/08/24 Rx release telmisartan 20 mg tablet (Micardis) 20 mg PO QAM #90 tabs 02/02/24 05/08/24 Rx Patient History Medical History (Updated 05/11/24 @ 10:36 by Juan Ayon MD) Memory deficit PT STATES SHE HAS TROUBLE WITH DATES AND REMEMBERING THINGS History of skin cancer History of bilateral breast cancer LUMPECTOMY - Osteoarthritis of left shoulder Peripheral arterial disease Arthritis Diverticulosis of colon (without mention of hemorrhage) History of basal cell carcinoma Irritable bowel syndrome Prolapse of vaginal sharp Rectocele Solitary thyroid nodule Uterine prolapse Prolapsed bladder GERD (gastroesophageal reflux disease) controlled Thyroid nodule Anxiety Sleep apnea cannot tolerate CPAP HLD (hyperlipidemia) Surgical History Status post Mohs surgery History of surgery on extremity L LEG (SKIN CANCER SURGERY) History of total replacement of right shoulder joint Hx of shoulder surgery RT SHOULDER REPLACEMENT History of colonoscopy History of esophagogastroduodenoscopy (EGD) History of appendectomy Hx of lumpectomy RIGHT/LEFT LUMPECTOMY History of tooth extraction History of tonsillectomy H/O eye surgery BCC EXCISION (LEFT EYELID) History of cataract surgery RT/LEFT H/O carotid endarterectomy LEFT (2002) History of cardiac cath 2009= NO STENTS - PT CCANNOT REMEMBER WHERE DONE Hx of cataract surgery Hx of shoulder surgery Hx of breast biopsy Family History Brother Alzheimer disease Mother Heart disease Hypertension Myocardial infarction Father Kidney stone Denies family history of Ovarian cancer Prostate cancer Breast cancer Lung cancer Colorectal cancer Social History Smoking Status: Former smoker Tobacco Type: Cigarettes Age Started Using Tobacco: 15; Age Quit Using Tobacco: 39; packs per day: 1; Second Hand Exposure: No; Do You Dip or Chew Tobacco: No; Hx Alcohol Use: No Hx Substance Use: No Preferred Language: Luxembourger Communication Ability: Effective Visual Impairment: No Limitations Hearing Ability: Use of Hearing Aid State Game Protector Required: No Beliefs That Will Affect Care: None marital status: / Current Living Situation: Family Current Living Situation Comment: daugther and son in law current occupational status: retired 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 How many Children do You have: 4 Feels Safe at Home: Yes Childhood Exposure to Second-Hand Smoke: No Diet: regular caffeine: Yes (iced tea and coffee sometimes ) Dental Care, Regularly: Yes Physical Activity Frequency: Does not Exercise Seatbelt Use: always Sunscreen Use: No (not in sun) Assistive Devices: Cane and Walker Review of Systems Constitutional: no fever, no fatigue and no weakness Eyes: + itchy eyes and + worsening vision; no diplopia and no eye pain Ear, Nose, Mouth, Throat: no ear pain, no tinnitus, no hearing loss, no dizziness, no snoring, no hoarseness and no dysphagia Respiratory: no cough and no dyspnea Cardiovascular: no chest pain, no palpitations and no lightheadedness Gastrointestinal: no abdominal pain, no nausea and no vomiting Genitourinary: no dysuria, no urinary frequency and no urinary incontinence Musculoskeletal: no back pain, no neck pain, no radicular pain, no joint pain and no myalgia Integumentary: no rash and no lesions Neurologic: + gait abnormality and + localized weakn ess; no generalized weakness, no tingling, no numbness, no tremor(s), no abnormal movements, no headache(s), no abnormal speech, no confusion and no memory loss Psychiatric: no depression, no irritability, no anxiety, no difficulty concentrating, no confusion and no hallucinations Endocrine: no fatigue and no flushing Hematologic / Lymphatic: no easy bleeding and no easy bruising Allergy / Immunological: no urticaria and no problem reported Exam (Neuro) Physical Exam: The patient is right-handed. The patient is awake, alert, and attentive. Speech is normal without any aphasia or dysarthria. Mentation and thought processes are intact, with full orientation and normal fund of knowledge. Mood and affect are normal and appropriate. Appearance and grooming are normal. Memory shows some short-term and other deficits. Pupils are 3 mm bilaterally and reactive to light. She has ptosis of the right upper eyelid. She can open it some but cannot get it even [facility]. There is no erythema or redness of the eyelid, I, or face bilaterally. When I passively open her eyelids her gaze is conjugate front. She cannot adduct her right eye when looking to the left and she has limited up and downgaze. She can fully abduct the right eye with looking right. There are no deficits to sensation in the face in all 3 distributions of the fifth cranial nerve bilaterally. Corneal reflexes are positive bilaterally. Facial strength and symmetry was normal bilaterally. Hearing is decreased bilaterally. Palate moves well without asymmetry. There is normal sternocleidomastoid and trapezius strength bilaterally. Tongue is midline with good strength bilaterally. There is no rash or residual that might be from zoster noted on her face. Neck has a full range of motion without discomfort. There are no cervical bruits bilaterally. There are no cranial or ocular bruits. Heart is without murmur. There is a regular rhythm and rate. Cervical, thoracic, and lumbar spine are nontender to palpation. Gait is a little wide-based and very unstable with her stance even with eyes open. She could not take a step on her own without being very unstable. With standing she was leaning to the left. With outstretched arms there is no drift. There are no resting, postural, or action tremors. There is no ataxia with finger to nose testing. There is good facility in the hands. No other abnormal involuntary movements are noted. Motor strength is 5/5 diffusely in the right upper extremity including deltoids, biceps, triceps, brachioradialis, wrist flexors and extensors, rock breaker, and intrinsic hand muscles. The left upper extremity has 4/5 strength proximally and closer to 5/5 distally. Motor strength is 5/5 diffusely in the legs bilaterally including hip flexors, quadriceps, hamstrings, gastrocnemius, tibialis anterior, tibialis posterior, and Peroneii muscles bilaterally. Toe extensors are normal and there is good bulk in the extensor digitorum brevis muscles bilaterally. The limbs have good tone without rigidity or spasticity. There is no atrophy noted in the muscles. Muscle bulk is normal, there is no tenderness to palpation, no myotonia to percussion, and no fasciculations seen. Sensory examination is intact to touch and pin throughout all 4 limbs diffusely. Reflexes are 1/4 in the biceps, triceps, brachioradialis, quadriceps, and Achilles tendons bilaterally. Toes are downgoing with plantar stimulation bilaterally. Peripheral pulses are present and of normal quality distally in all 4 limbs. There is no peripheral edema noted in the limbs. Results & Data Vital Signs (Past 12 Hours) Vital Signs Temp Pulse Pulse Resp BP Pulse Ox O2 Del Method 05/11/24 09:44 67 05/11/24 07:00 36.6 C 74 18 184/74 H 97 Room Air 05/11/24 02:33 36.5 C 69 18 148/75 H 93 Room Air 05/10/24 23:00 74 05/10/24 22:29 36.5 C 67 16 157/77 H 96 Room Air PG Care Time/CCT Total # of Minutes Spent Total Time Spent with Patient: Total time spent is greater than 50% in coordination of care (as documented) at patient's floor/unit and/or counseling patient: Coding Level of Care Code 87388 INT INP/OBS CARE 3/75MIN Diagnoses Acute ischemic stroke I63.9 3rd nerve palsy, partial H49.00 Preseptal cellulitis of right eye L03.213 Time Spent (min) 90
[2024-05-11] MEDS: ENOXAPARIN INJ 30 MG/0.3 ML SYR SQ SCH (10:52)
--- NOTE | 2024-05-11 13:44 | Hospitalist Progress Note ---
Date of Service May 11, 2024 Assessment & Plan (1) Acute ischemic stroke: Plan: P/w acute onset of difficulty walking with leaning to the left and right eye extraocular muscle weakness and ptosis CTA H/N negative. 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 Continue home atorvastatin 20mg daily HgbA1C 6.0%, lipids good PT/OT recommend rehab-awaiting insurance auth Monitor on tele for arrhythmias-remains in NSR BP control-continue permissive HTN for now but can gradually bring down BP over next 1-2 days Will need Ophtho f/u after discharge Will need Neurology f/u in clinic in 2-3 weeks (2) Preseptal cellulitis of right eye: Plan: Right eye closed 2/2 ptosis from CVA Right periorbital cellulitis has since resolved and is not related to her stroke--> no signs of encephalitis or meningitis, MRI with contrast neg for enhancement or evidence of such either Skin of right cheek and eyelid still mildly itchy, dry, pink in color-coninue mositurizer cream to skin and moisturizing eye drops No further antibiotics needed Was treated previously with eye drops, keflex, po steroids, antiviral for cold sores on lips nad nose-->possible herpes zoster Will need ongoing Ophthalmology f/u as outpt (3) HTN (hypertension): Plan: Permissive HTN in setting of stroke continue losartan same dose for now and then gradual decrease of BP as above (4) Thyroid nodule: Plan: Seen on CT neck, 2.2 cm TSH here normal at 4.0 Plan Chronic Medical Problems: TIFFANIE- cannot tolerate CPAP HL-lipids acceptable and not a good candidate for high intensity statin due to age Anxiety-continue Lexapro,but decrease dose to 10mg daily as per Neurology recommendations as 20mg too high for her age PAD-with a h/o carotid endarterectomy? continue antiplatelet and statin. CTA neck here no significant blockages Mild cognitive impairment-supportive care GERD-continue PPI DVT proph- Lovenox Dispo-dc to rehab once insurance auth approved for [facility]-medically stable for discharge today Admission and Anticipated Discharge Date Admission Date: May 09, 2024 Subjective Feeling fine. Still can't open right eye. Right side of face and eye not as itchy today. Did work with PT. Denies SOB, CP, nausea and headache Tele with NSR rates 70-80s I discussed her care with Neurology on phone and with son at bedside Physical Exam Constitutional: WD/WN, vitals as above Eyes: + eyelid abnormality (OD mild edema uppe r lid,dry skin improved), + anicteric sclerae and PERRL; + EOM not intact (unable to adduct OD medially or look downward or upward OD) and no nystagmus ENMT: external ear and nose normal, oropharynx normal Respiratory: normal respiratory effort, lungs clear to auscultation Cardiovascular: RRR, no murmur, no edema Gastrointestinal (Abdomen): normal bowel sounds, soft, nontender, no hepatosplenomegaly Skin: no erythema (improved,none further right cheek) Neurologic: normal touch/pain/proprioception, moves all extremities and awake; + CN's not intact (intact except CN III on right), no focal motor deficits, no meningeal signs and not confused Speech / Cognition: normal speech Psychiatric: Orientation: alert, oriented to person, oriented to place and cooperative Results & Data Results & Data Vital Signs (Past 12 Hours) Vital Signs Temp Pulse Pulse Resp BP Pulse Ox O2 Del Method 05/11/24 11:33 37 C 71 17 149/71 H 95 Room Air 05/11/24 09:44 67 05/11/24 07:00 36.6 C 74 18 184/74 H 97 Room Air 05/11/24 02:33 36.5 C 69 18 148/75 H 93 Room Air Laboratory Results CBC, BMP, TSH reviewed PG Care Time/CCT Total # of Minutes Spent Total Time Spent with Patient: Total time spent is greater than 50% in coordination of care (as documented) at patient's floor/unit and/or counseling patient: Coding Level of Care Code 16596 SUB INP/OBS CARE 2/35MIN Diagnoses Acute ischemic stroke I63.9 Preseptal cellulitis of right eye L03.213 Essential hypertension I10 Hypertension type: essential hypertension Thyroid nodule E04.1 (3) HTN (hypertension) Hypertension type: essential hypertension Qualified Code(s): I10 - Essential (primary) hypertension
[2024-05-11] MEDS: ATORVASTATIN 20 MG TAB PO SCH (21:23)
[2024-05-12] MEDS: ESCITALOPRAM OXALATE 10 MG TAB PO SCH (09:22)
[2024-05-12 11:42] VITALS: BP 109/63; PULSE 76; RESP 18; TEMP 98.1; O2SAT 99
--- NOTE | 2024-05-12 11:59 | Discharge Summary ---
Discharge Summary Date of Service May 12, 2024 Principal Dx & Hospital Course #1 = Principal Diagnosis (1) Acute ischemic stroke: P/w acute onset of difficulty walking with leaning to the left and right eye extraocular muscle weakness and ptosis CTA H/N negative. 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 BP control-continue permissive HTN for now but can gradually bring down BP if needed at rehab-BPs are actually normal now on their own Will need Ophtho f/u after discharge Will need Neurology f/u in clinic in 2-3 weeks (2) Preseptal cellulitis of right eye: Right eye closed 2/2 ptosis from CVA Right periorbital cellulitis has since resolved and is not related to her stroke--> no signs of encephalitis or meningitis, MRI with contrast neg for enhancement or evidence of such either Skin of right cheek and eyelid still mildly itchy, dry, pink in color-continue moisturizer cream to skin and Maxitrol eye ointment x 1 more week No further antibiotics needed Was treated previously with eye drops, keflex, po steroids, antiviral for cold sores on lips and nose-->possible herpes zoster Will need ongoing Ophthalmology f/u as outpt (3) HTN (hypertension): Permissive HTN in setting of stroke continue losartan same dose for now and then gradual decrease of BP as above if needed (4) Thyroid nodule: Seen on CT neck, 2.2 cm TSH here normal at 4.0 Plan Chronic Medical Problems: TIFFANIE- cannot tolerate CPAP HL-lipids acceptable and not a good candidate for high intensity statin due to age Anxiety-continue Lexapro,but decrease dose to 10mg daily as per Neurology recommendations as 20mg too high for her age PAD-with a h/o carotid endarterectomy? continue antiplatelet and statin. CTA neck here no significant blockages Mild cognitive impairment-supportive care GERD-continue PPI but change Prilosec to Protonix given interaction of Prilosec with Plavix DVT proph- Lovenox Dispo-dc to rehab at [facility]-medically stable for discharge today Notes For Next Care Provider Needs Ophthalmology and Neurology follow up Medication Changes From Visit See List Admission HPI Per Admitting Provider 88-year-old female presenting to ED with daughter for new onset dizziness and weakness with associated leaning to left side, left foot dragging, and left- sided facial droop starting at 0910. ED course: CBC RBC 3.43, H&H 10.8/33.1, RDW 51.2; PT/INR WNL; CMP BUN/creatinine ratio 20.2, UA with trace blood, no signs of infection; head CT without acute intracranial findings, head CTA without acute intragraphic abnormalities in the brain, neck CTA slow flow in left cervical vertebral artery, atherosclerotic calcification in the internal carotid bulbs with less than 20% stenosis, 2.2 cm R thyroid nodule (nonemergent ultrasound); EKG NSR, first-degree AV block, rate around 70.; Provided with Rocephin 1 g, diphenhydramine, methylprednisolone, 1 L NSS, and ciprofloxacin eyedrops in ED. Patient is an 88-year-old female with PMHx CAD, HTN, depression with anxiety, dyslipidemia, history of SCC, PAD, and osteoporosis presenting for new onset neurodeficits. Patient's daughters are present in room at time of visit and helped provide a history. Patient awoke the morning of arrival and walked to the restroom by herself, but noted that she felt she was leaning to the left a lot. Around 20 minutes later the patient's daughter helped her out of bed again and continue to notice that she was leaning to the left side. When walking, she also noted that her left foot was dragging behind. Patient does use a walker to ambulate at baseline, but was still having these abnormalities with a walker. Daughter states she may have been having associated left-sided facial droop, but was unsure. Patient is also having recurrence of preseptal/periorbital cellulitis of the right eye, no recent trauma to area. Patient states that she felt dizzy when walking, seeming that she was off balance. No falls or syncopal episodes. Only other complaint is mild discomfort of the right eye and associated sore throat starting this morning when she awoke. Denying headache, additional vision changes, chest pain, shortness of breath, palpitations, abdominal pain, N/V/D/C, numbness or tingling. Patient took all a.m. medications. Has not had anything like this happen before. Please see Dr. White's attestation for adjustments/additions to treatment plan. Discharge Exam Constitutional WD/WN, vitals as above Eyes + eyelid abnormality (OD mild edema upper lid,dry skin improved), + anicteric sclerae and PERRL; + EOM not intact (unable to adduct OD medially or look downward or upward OD) and no nystagmus ENMT external ear and nose normal, oropharynx normal Respiratory normal respiratory effort, lungs clear to auscultation Cardiovascular RRR, no murmur, no edema Gastrointestinal (Abdomen) normal bowel sounds, soft, nontender, no hepatosplenomegaly Skin no erythema (improved,none further right cheek) Neurologic moves all extremities, + focal motor deficit (mild proximal LUE weakness) and awake; + CN's not intact (intact except CN III on right), no meningeal signs and not confused Speech / Cognition: normal speech Psychiatric Orientation: alert, oriented to person, oriented to place and cooperative Discharge Plan Discharge Items Patient Disposition: Transfer Inpatient Rehab Fac Reason For Visit: STROKE LIKE SX,ORBITAL/PRESPTAL CELLULITIS Discharge Diagnosis: Acute ischemic CVA Condition on Discharge: Fair Activity: As commented below Lifting: Gradually increase as tolerated Bathing: No limitations Exercise/Sports: Gradually increase as tolerated Driving/Machine Use: No driving Non-emergency contact: Primary Care Provider and Neurologist Call non-emergency contact if: you have any medication questions and your symptoms worsen Follow-up/Referrals: Lala Webber, [Primary Care Provider] - Diet: Heart Healthy Addtl Attending Provider Instructions: You were admitted with difficulty walking and with right eyelid weakness. You were found to have a stroke in your brainstem that caused these issues. You were started on a different blood thinner called Plavix to replace your aspirin for prevention of future strokes. You will need rehab to get your strength back. You should follow up with the Neurologist in the office in 2-3 weeks and should also follow up with your Menu Planner within 2 weeks. You should NOT take meloxicam for arthritis as this can increase your risk for stroke. Your omeprazole was changed to Protonix due to an interaction of omeprazole with your new Plavix (clopidrogel) blood thinner. Finally, your Lexapro (anti-anxiety/depression medication) dose was reduced for age to 10mg daily as recommended by the Neurologist. If you develop worsening mood, please discuss with your PCP. Risk Factors for Stroke: You can reduce your chances of stroke by working with your medical provider to adopt a healthy lifestyle. Some specific ways to lower your chance of stroke are: * If you are a smoker, now is the time to stop smoking cigarettes * If you are diabetic, improve the control of your blood sugars * Avoid excessive amounts of alcohol * Control high blood pressure * Lose weight if you are overweight * Be sure to lead an active lifestyle * Eat a healthy diet low in salt, cholesterol and fat You should know about other risk factors for stroke that you are unable to control. These include: * Age 55 years or older * Male gender * Certain racial groups: , or / * Family History of Stroke, Mini stroke or Heart Attack * Sickle Cell Disease Follow Up: It is important for you to keep your follow up appointments with your medical provider. Who to Call and When: Medical Emergencies: Call 911 immediately if you experience any of the following warning signs and symptoms of Stroke: * Sudden numbness or weakness of the face, arm or leg, especially on one side of the body * Sudden confusion, trouble speaking or understanding * Sudden trouble seeing in one or both eyes * Sudden trouble walking, dizziness, loss of balance or coordination * Sudden severe headache with no cause Do not delay calling 911 if you experience any warning signs or symptoms of a stroke. Delay in seeking medical attention may affect what treatments can be given to you. . Pending Studies at Discharge: No Stand-Alone Forms: My [facility] Skilled Items Patient informed of condition?: Yes DNR: No Discharge Level of Care: Acute rehab Communicable Disease: No Discharge Prognosis: Stable Lines: None Urinary Catheter: No Medications and DC Order Prescriptions: New clopidogrel 75 mg Tablet 75 mg PO QAM Qty: 30 0RF neomycin-polymyxin B-dexameth 3.5 mg/g-10,000 unit/g-0.1 % Ointment 1 applic OPR BID 7 Days Qty: 3.5 0RF escitalopram oxalate 10 mg Tablet 10 mg PO DAILY Qty: 30 0RF pantoprazole 40 mg Tablet,Delayed Release (Dr/Ec) 40 mg PO DAILY Qty: 30 0RF Continued alendronate 70 mg tablet 70 mg PO WK Qty: 12 3RF Rx Instructions: mondays atorvastatin 20 mg tablet 20 mg PO HS Qty: 90 3RF telmisartan [Micardis] 20 mg tablet 20 mg PO QAM Qty: 90 3RF cholecalciferol (vitamin D3) 25 mcg (1,000 unit) tablet 2,000 units PO QPM docusate sodium 100 mg capsule 100 mg PO DAILY PRN (Reason: Constipation) Rx Instructions: every other day acetaminophen [Tylenol Extra Strength] 500 mg tablet 1,000 mg PO Q6H PRN (Reason: Pain) simethicone [Gas-X Extra Strength] 125 mg capsule 125 mg PO DAILY PRN (Reason: Gastrointestinal Spasms Or Cramping) loratadine 10 mg Capsule 10 mg PO DAILY Discontinued meloxicam 7.5 mg tablet 7.5 mg PO DAILY Qty: 90 1RF omeprazole 40 mg capsule,delayed release(DR/EC) 40 mg PO DAILY Qty: 90 1RF escitalopram oxalate [Lexapro] 20 mg tablet 20 mg PO DAILY Qty: 90 1RF aspirin [Aspir-81] 81 mg Tablet,Delayed Release (Dr/Ec) 81 mg PO QAM Discharge Orders: Discharge Order (Routine); Ordered 05/12/24 Ordered By: Barbara Lara Admission Data Admit Date/Time: 05/09/24 15:22 Attending Provider: Barbara Lara Admit Provider: Jv White Primary Care Provider: Lala Webber Other Providers: Juan Ayon; [facility]; [facility]; [facility] Stay Data Consultations 05/10/24 13:32 Consult Neurology Routine Diagnostic Imagining Performed 05/08/24 12:10 CT angio head w con Stat CT angio neck with con Stat CT head/brain wo con Stat 05/09/24 MR brain wo con Routine 05/10/24 13:31 MRI Brain [MR brain wo/w con] Stat ECHO Pending Results Patient Have Any Pending Studies at Discharge: No Discharge Instructions Given to Patient (Per Discharging Provider) You were admitted with difficulty walking and with right eyelid weakness. You were found to have a stroke in your brainstem that caused these issues. You were started on a different blood thinner called Plavix to replace your aspirin for prevention of future strokes. You will need rehab to get your strength back. You should follow up with the Neurologist in the office in 2-3 weeks and should also follow up with your Menu Planner within 2 weeks. You should NOT take meloxicam for arthritis as this can increase your risk for stroke. Your omeprazole was changed to Protonix due to an interaction of omeprazole with your new Plavix (clopidrogel) blood thinner. Finally, your Lexapro (anti-anxiety/depression medication) dose was reduced for age to 10mg daily as recommended by the Neurologist. If you develop worsening mood, please discuss with your PCP. Risk Factors for Stroke: You can reduce your chances of stroke by working with your medical provider to adopt a healthy lifestyle. Some specific ways to lower your chance of stroke are: * If you are a smoker, now is the time to stop smoking cigarettes * If you are diabetic, improve the control of your blood sugars * Avoid excessive amounts of alcohol * Control high blood pressure * Lose weight if you are overweight * Be sure to lead an active lifestyle * Eat a healthy diet low in salt, cholesterol and fat You should know about other risk factors for stroke that you are unable to control. These include: * Age 55 years or older * Male gender * Certain racial groups: , or / * Family History of Stroke, Mini stroke or Heart Attack * Sickle Cell Disease Follow Up: It is important for you to keep your follow up appointments with your medical provider. Who to Call and When: Medical Emergencies: Call 911 immediately if you experience any of the following warning signs and symptoms of Stroke: * Sudden numbness or weakness of the face, arm or leg, especially on one side of the body * Sudden confusion, trouble speaking or understanding * Sudden trouble seeing in one or both eyes * Sudden trouble walking, dizziness, loss of balance or coordination * Sudden severe headache with no cause Do not delay calling 911 if you experience any warning signs or symptoms of a stroke. Delay in seeking medical attention may affect what treatments can be given to you. . Total Time Total Time Spent Total Time Spent (In Minutes): 35 min Total Time Includes: Examination of the Patient, Discharge Planning and Medication Reconciliation Coding Level of Care Code 05844 INP/OBS DISCH >30 MIN Diagnoses Acute ischemic stroke I63.9 Preseptal cellulitis of right eye L03.213 Essential hypertension I10 Hypertension type: essential hypertension Thyroid nodule E04.1
== END 2024-05-12 15:00 | DRG 65 ==
LOC: 2N 11:39 → ED 11:39 → SUATTDRO 18:36 → 2N 20:35